=== PATIENT | female | born 1945 | race Caucasian/White ===

== ENCOUNTER 2016-11-04 18:18 | Inpatient (IN) | payer MEDICARE, OTHER ==
[~2016-11-04] VITALS: Ht 162.6 cm; Wt 60.4 kg
[2016-11-04] MEDS ORDERED: COU75 PO (19:57)
[2016-11-04] MEDS ORDERED: GABA300C16 PO (19:57)
[2016-11-04] MEDS ORDERED: DILT120C77 PO (19:57)
[2016-11-04] MEDS ORDERED: ACET325C PO (19:57)
[2016-11-04] MEDS ORDERED: ATOR10TA65 PO (19:57)
[2016-11-04] MEDS ORDERED: POLY17PO6 PO (19:57)
[2016-11-04] MEDS ORDERED: TRAV4OP25 BOTH EYES (19:57)
[2016-11-04] MEDS ORDERED: LANS30CA PO (19:57)
[2016-11-04] MEDS ORDERED: DOCU-144 PO (19:57)
[2016-11-04] MEDS ORDERED: ALPR0.257 PO (19:57)
[2016-11-04] MEDS ORDERED: FURO40TA4 PO (19:57)
[2016-11-04] MEDS ORDERED: DIGO125T6 PO (19:57)
[2016-11-04] MEDS ORDERED: ZOLP5TAB PO (19:57)
[2016-11-04 20:00] VITALS: BP 135/61; RESP 17; Ht 162.6 cm; Wt 60.4 kg
[2016-11-04] MEDS ORDERED: POLYETHYLENE GLYCOL 17 GM PACKET PO PRN (20:30)
[2016-11-04] MEDS ORDERED: NON-FORMULARY/PATIENT OWN MED (Alprazolam 0.25 MG) PO PRN (20:30)
[2016-11-04] MEDS ORDERED: ZOLPIDEM 5 MG TAB PO PRN (20:30)
[2016-11-04] MEDS ORDERED: TRAVOPROST 0.004% 2.5 ML OPH BOTH EYES SCH (21:00)
[2016-11-04] MEDS ORDERED: ACETAMINOPHEN 650 MG PO SCH (21:00)
[2016-11-04] MEDS: DIGOXIN 0.125 MG TAB PO SCH (21:43)
[2016-11-04] MEDS ORDERED: ACETAMINOPHEN 325 MG TAB PO PRN (22:00)
[2016-11-04] MEDS ORDERED: ALPRAZOLAM 0.25 MG TAB PO PRN ×2 (22:00)
[2016-11-04] MEDS: ATORVASTATIN 10 MG TAB PO SCH (22:10)
[2016-11-04] MEDS: GABAPENTIN 300 MG CAP PO SCH (22:10)
[2016-11-05 01:43] LABS: ADD UMIC YES; URINE BILIRUBIN (Dip) NEGATIVE (NEGATIVE); URINE BLOOD (Dip) NEGATIVE (NEGATIVE); URINE COLOR LT. YELLOW (YELLOW); URINE GLUCOSE (Dip) NEGATIVE (NEGATIVE); URINE KETONES (Dip) NEGATIVE (NEGATIVE); URINE LEUKOCYTE ESTERASE (Dip) 2+ (NEGATIVE); URINE NITRITE (Dip) NEGATIVE (NEGATIVE); URINE TOTAL PROTEIN (Dip) NEGATIVE (NEGATIVE); URINE UROBILINOGEN (Dip) 0.2 E.U./dL (0.1-1.0)
[2016-11-05 02:45] LABS: BACTERIA,URINE MANY; SQUAMOUS EPITHELIAL CELL,UR FEW; URINE RBCS 0-2 /HPF (0)
[2016-11-05] MEDS ORDERED: BISACODYL 10 MG SUPP PR PRN (03:00)
[2016-11-05 05:46] VITALS: BP 139/68; PULSE 82
[2016-11-05] MEDS: FUROSEMIDE 40 MG TAB PO SCH (05:46)
[2016-11-05 07:30] VITALS: BP 132/79; RESP 18
[2016-11-05 07:52] LABS: HEMATOCRIT 36.9 % (37.0-47.0); HEMOGLOBIN 11.5 g/dl (12.0-16.0); MEAN CORPUSCULAR HEMOGLOBIN 25.1 pg (29.0-33.0); MEAN CORPUSCULAR HGB CONC 31.1 g/dl (32.0-37.0); MEAN CORPUSCULAR VOLUME 80.6 fl (82.0-101.0); MEAN PLATELET VOLUME 9.9 fl (7.4-10.4); PLATELET COUNT 621 10^3/UL (140-440); RED BLOOD COUNT 4.57 10^6/ul (4.20-5.40); RED CELL DISTRIBUTION WIDTH 22.5 % (11.5-14.5); UNCORRECTED WBC 14.8 10^3/ul (4.8-10.8); WHITE BLOOD COUNT 14.8 10^3/ul (4.8-10.8)
[2016-11-05 08:00] LABS: CONDITION 1; LH ANALYZER COMMENTS 1; SUSPECT 1
[2016-11-05 08:05] LABS: ALBUMIN 3.6 g/dl (3.3-4.9)
[2016-11-05 08:06] LABS: POTASSIUM 3.9 mmol/L (3.5-5.1)
[2016-11-05 08:08] LABS: ALBUMIN/GLOBULIN RATIO 1.02; BILIRUBIN,INDIRECT 0.3 mg/dl (0-1.1); BILIRUBIN,TOTAL 0.3 mg/dl (0.2-1.3); CALCIUM 9.7 mg/dl (8.4-10.2); CREATININE 1.02 mg/dl (0.44-1.00); TOTAL PROTEIN 7.1 g/dl (6.1-8.1)
[2016-11-05] MEDS: DILTIAZEM (CD) 120 MG CAP PO SCH (08:33)
[2016-11-05] MEDS: GABAPENTIN 300 MG CAP PO SCH ×3 (08:33→20:29)
[2016-11-05] MEDS: LANSOPRAZOLE 30 MG CAP PO SCH (08:33)
[2016-11-05] MEDS ORDERED: WARFARIN 7.5 MG TAB PO SCH (09:00)
[2016-11-05 10:12] LABS: EOSINOPHILS # 0.1 10^3/ul (0.0-0.5); LYMPHOCYTES # 5.6 10^3/ul (0.8-2.9); MONOCYTE # 1.8 10^3/ul (0.3-0.9); NEUTROPHIL # 7.1 10^3/ul (1.6-7.5); PLATELET ESTIMATE PLT APPEAR INCREASED
[2016-11-05] MEDS: HYDROCODONE/APAP (5/325) TAB PO PRN ×2 (10:19→22:13)
[2016-11-05 11:13] LABS: INR 2.32; PROTIME 25.7 Sec (12.2-14.2)
--- NOTE | 2016-11-05 11:27 | HP ---
DATE OF ADMISSION: 11/04/2016 CHIEF COMPLAINT: Acute stroke. HISTORY OF PRESENT ILLNESS: This is a 71-year-old female with a past medical history of chronic atr ial fibrillation on warfarin, history of hypertension, history of glaucoma, history of chronic lymph osarcoma diagnosed at age 17 with a previous history of radiation therapy and surgery who was transf erred to [facility] for acute rehabilitation due to recent CVA. The patient was r ecently admitted to [facility] with progressive shortness of breath. At the time of admission , the patient was complaining of shortness of breath and lower extremity edema. The patient also oliver d a recent fall resulting in facial trauma. The patient upon admission to [facility] initiall y had a CT scan of the brain with evidence of old cerebrovascular accident. The patient was subsequ ently admitted for treatment. During the hospital stay, the patient had new onset of right-sided lo wer extremity weakness and MRI of the brain was then performed which showed evidence of left frontal lobe lacunar infarct. Carotid ultrasound and carotid MRA was performed which was negative for any significant stenosis. The patient further during the hospital course developed right temporal heada ches with right eye blurry vision. The patient was evaluated by rheumatology was initially placed o n steroids. A right temporal biopsy was performed which was negative for any evidence of GCA. Stero ids were subsequently discontinued and a repeat MRI of the brain showed no further findings. The fawad valdes was also evaluated by ophthalmology during the hospital course and determined to have normal i ntraarticular pressure and the patient's glaucoma meds were continued. Blurriness of the right eye remained unexplained per ophthalmology. Additionally, during the hospital course, the patient had a longstanding history of liposarcoma of the abdomen. An imaging study of the abdomen and pelvis sangeeta wed 2 separate fluid collections which may be due to the tumor and the possibility of tumor infiltra tion of the peripheral nerves of the sacrum. Patient, however, refused further evaluation at that t jhon and wanted pain control and management. The patient also wanted her lower extremity weakness im proved prior for further evaluation of the fluid collections. Currently, at the time, the patient is stable. She is complaining of right blurry vision without an y significant change. She denies any fevers, chills, nausea, vomiting. No shortness of breath. PAST MEDICAL HISTORY: As stated above, history of a chronic AFib, history of old cerebrovascular ac cident, history of hypertension, glaucoma, history of chronic liposarcoma. PAST SURGICAL HISTORY: Previous history of tumor resection. ALLERGIES: PATIENT IS ALLERGIC TO: 1. INFLUENZA VACCINE. 2. LACTULOSE. FAMILY HISTORY: No family history of kidney disease or heart disease. SOCIAL HISTORY: Does not drink, smoke or do drugs. MEDICATIONS: The patient's medications have been reviewed and reconciled. REVIEW OF SYSTEMS: A 14-point review of systems was conducted. Pertinent positives in HPI, otherwi se negative. PHYSICAL EXAMINATION: VITAL SIGNS: Blood pressure is 132/79, respiration 18, pulse 81, temperature 97.5. HEENT: Head is normocephalic. Pupils are reactive. As noted, right-sided blurry vision, chronic. NECK: Supple. HEART: Irregularly irregular. LUNGS: Show diminished breath sounds at the base. ABDOMEN: Soft, nontender to palpation. No rebound or guarding. EXTREMITIES: Negative for clubbing, cyanosis. No edema. Positive ecchymosis. DERMATOLOGIC: No rashes. MUSCULOSKELETAL: No joint effusions. NEUROLOGIC: The patient has right-sided weakness. MEDICATIONS: The patient's medications have been reviewed. LABORATORY DATA: The patient has sodium 140, potassium 2.9, chloride 100, BUN 31, creatinine 1.02, alkaline phosphatase 148. White count 14.8, hemoglobin 11.5, hematocrit 36.9, platelet count 621. ASSESSMENT AND PLAN: This is a 71-year-old female who presents with: 1. Acute left frontal lacunar infarct with right-sided weakness. Plan at this point is for patient to receive physical therapy, occupational therapy. We will continue medical management with Coumad in, statin therapy. We will consider neurologic evaluation. We will monitor closely. 2. Right blurry vision. Etiology may be secondary to acute cerebrovascular accident. The patient is status post ophthalmology evaluation at outside hospital that showed normal intraocular pressure. We will continue to monitor. Consider ophthalmology consult. 3. Nonoliguric acute kidney injury with possible chronic kidney disease. The patient's creatinine is minimally elevated at 1.02 mg/dL, improved from previous creatinine 1.30 mg/dL [facility]. At this point, continue to monitor closely. Continue to renally dose all meds, avoid nephroto xins. 4. Leukocytosis. Etiology is unclear, possibly due to recent steroid use versus infectious. We wi ll check urine culture and UA, monitor closely. 5. Chronic atrial fibrillation, currently rate controlled. Continue medical management. The patie nt is on Coumadin. We will follow up INR level. 6. History of chronic liposarcoma. Patient is status post radiation therapy resection in the past. The patient's recent MRI finding shows new fluid collections unclear if this is due to progression of disease. At this point, we will defer further evaluation per patient's request and we will rodrick tor. 7. Neuropathy. Continue Neurontin. 8. Chronic pain syndrome. Continue current pain regimen. 9. Dyslipidemia. Continue statin therapy. 10. Anxiety disorder. Continue Xanax. 11. Anemia. We will monitor hemoglobin and hematocrit levels. 12. GI and deep venous thrombosis prophylaxis. Continue proton pump inhibitor and Coumadin. Please note I spent up to 20 minutes of face to face time with this patient, discussing code status. The patient is FULL CODE. Dictated By: CRISTIANO JJ DO NR/AMADOU Conf#: [id number] DID#: [id number]
--- NOTE | 2016-11-05 11:57 | RADRPT ---
PROCEDURE: US Lower extremity Venous. CLINICAL INDICATION: Right leg pain TECHNIQUE: Multiple sonographic images of the right lower extremity deep venous system was obtaine d utilizing grayscale, color-flow, compressive sonography and doppler imaging with augmentation. Th e images were reviewed on a PACS workstation. COMPARISON: None. FINDINGS: There is normal compressibility and flow within the right common femoral, superficial femoral, poste rior tibial, peroneal and popliteal veins. RPTAT: AA IMPRESSION: No sonographic evidence for deep venous thrombosis. .Donald Das MD, MD Date Time Electronically viewed and signed by .Donald Das MD, on 11/05/2016 11:57 .S/
[2016-11-05] MEDS: DIGOXIN 0.125 MG TAB PO SCH (14:07)
--- NOTE | 2016-11-05 14:12 | CONS ---
DATE OF ADMISSION: 11/04/2016 DATE OF CONSULTATION: 11/05/2016 REHABILITATION POST ADMISSION PHYSICIAN EVALUATION REHABILITATION IMPAIRMENT CATEGORY: Left frontal lacunar infarct cerebrovascular accident with righ t-sided weakness. ACTIVE COMORBIDITIES: 1. Blunt head trauma with facial abrasion. 2. Atrial fibrillation. 3. Hypertension. 4. History of cerebrovascular accident. 5. History of lymphosarcoma. 6. History of myocardial infarction. 7. Impairments in self-care, mobility, and cognition. HISTORY OF PRESENT ILLNESS: The patient is a pleasant 71-year-old female with a history of multiple medical comorbidities who was admitted with increased shortness of breath and weakness in addition to recent fall with notable facial ecchymoses. An MRI of the brain did reveal a left frontal lobe w ith acute lacunar infarct. The patient has now been cleared to transfer to the rehabilitation unit for comprehensive interdisciplinary rehab care. FUNCTIONAL HISTORY: Prior to recent events, she was independent in self-care tasks and mobility. C urrently, the patient requires moderate assist for self-care and moderate assist for mobility tasks. I have reviewed the preadmission screen and the patient's current functional status is consistent wi th the preadmission screen. SOCIAL HISTORY: The patient lives at home and hopes to return there upon discharge. PAST MEDICAL HISTORY: 1. Atrial fibrillation. 2. Hypertension. 3. Glaucoma. 4. History of myocardial infarction. 5. History of cerebrovascular accident with good functional recovery. 6. History of lymphosarcoma. CURRENT MEDICATIONS: 1. Alprazolam 0.25 p.o. q.6 hours p.r.n. 2. Atorvastatin 10 mg p.o. at bedtime. 3. Digoxin 0.125 p.o. daily. 4. Colace 100 mg p.o. b.i.d. 5. Ambien p.r.n. 6. Diltiazem 120 p.o. daily. 7. Lasix 40 mg p.o. daily. 8. Gabapentin 300 mg p.o. t.i.d. 9. Prevacid 30 mg p.o. every morning. 10. Travoprost eye drops. 11. Coumadin dose adjusted. ALLERGIES: THE PATIENT WITH NO KNOWN DRUG ALLERGIES. PHYSICAL EXAMINATION: VITAL SIGNS: She is currently afebrile with stable vital signs. HEENT: The extraocular motions are intact. The patient with notable right-sided facial ecchymoses. Oropharynx is clear. NECK: Supple. LUNGS: Clear anteriorly. CARDIAC: S1, S2. ABDOMEN: Soft, nontender, positive bowel sounds. NEUROLOGIC: She is awake and alert and oriented x3. She will follow simple 1-step commands. She d emonstrates good strength in the left upper and lower extremity. She has antigravity strength in th e right upper extremity. She has 3+ to 4- in the right lower extremity. PLAN: The patient has been admitted for comprehensive interdisciplinary acute rehab and is anticipa noni to tolerate 3 hours of daily therapy in divided doses for at least 5/7 days a week. The treatme nt plan will include: 1. Physical therapy to focus on bed mobility, transfers, and household ambulation with the goal of having the patient reach a standby assist level. 2. Occupational therapy to focus on hygiene, grooming, dressing, bathing, and toileting activities with the goal of having the patient reach a standby assist level. 3. Speech therapy for full cognitive assessment and training in addition to dysphagia evaluation wi th the goal of having the patient return to baseline cognition and meet nutritional needs by mouth. 4. Rehabilitation nursing for carryover of therapeutic interventions with the goal of continent of bowel and bladder, and the goal of patient and family education with regards to the aforementioned i ssues. REHABILITATION BARRIER: Weakness. INTERVENTION FOR BARRIER: Interdisciplinary rehabilitation. ESTIMATED LENGTH OF STAY: 14 days. DISPOSITION GOAL: Home. I acknowledge that I performed a full physical examination on this patient within 24 hours of admiss ion to the rehabilitation unit and believe the patient is a good candidate for comprehensive interdi sciplinary rehab care and is anticipated to make reasonable goals in a reasonable period of time as outlined above. Dictated By: JEIMY VIVAS/AMADOU Conf#: [id number] DID#: [id number]
[2016-11-05] MEDS ORDERED: CEPASTAT LOZENGE MT PRN (16:00)
[2016-11-05] MEDS: WARFARIN 5 MG TAB PO SCH (17:22)
[2016-11-05] MEDS: GUAIFENESIN/DM 5ML CUP PO PRN ×2 (18:09→22:13)
[2016-11-05] MEDS: LATANOPROST 0.005% 2.5 ML OPH BOTH EYES SCH (20:30)
[2016-11-05] MEDS: ATORVASTATIN 10 MG TAB PO SCH (20:30)
[2016-11-05 21:09] VITALS: BP 127/71; RESP 18
[2016-11-06] MEDS: GUAIFENESIN/DM 5ML CUP PO PRN (03:19)
[2016-11-06 05:58] VITALS: BP 121/63; PULSE 86
[2016-11-06] MEDS: FUROSEMIDE 40 MG TAB PO SCH (05:58)
[2016-11-06 07:43] LABS: BASOPHILS % 0.2 % (0.0-2.0); EOSINOPHILS # 0.4 10^3/ul (0.0-0.5); EOSINOPHILS % 2.8 % (0.0-7.0); HEMATOCRIT 34.5 % (37.0-47.0); HEMOGLOBIN 10.5 g/dl (12.0-16.0); INR 3.1; MEAN CORPUSCULAR HEMOGLOBIN 24.5 pg (29.0-33.0); MEAN CORPUSCULAR HGB CONC 30.3 g/dl (32.0-37.0); MEAN CORPUSCULAR VOLUME 80.6 fl (82.0-101.0); MEAN PLATELET VOLUME 9.7 fl (7.4-10.4); MONOCYTE # 1.9 10^3/ul (0.3-0.9); MONOCYTES % 13.4 % (0.0-11.0); NEUTROPHILS % 62.6 % (39.0-77.0); PLATELET COUNT 560 10^3/UL (140-440); PROTIME 32.4 Sec (12.2-14.2); PT RATIO 2.5; RED BLOOD COUNT 4.28 10^6/ul (4.20-5.40); RED CELL DISTRIBUTION WIDTH 22.8 % (11.5-14.5); UNCORRECTED WBC 14.4 10^3/ul (4.8-10.8); WHITE BLOOD COUNT 14.4 10^3/ul (4.8-10.8)
[2016-11-06 07:46] LABS: CONDITION 1; LH ANALYZER COMMENTS 1; SUSPECT 1
[2016-11-06 07:53] LABS: POTASSIUM 3.4 mmol/L (3.5-5.1)
[2016-11-06 07:56] LABS: CREATININE 0.86 mg/dl (0.44-1.00)
[2016-11-06 07:57] LABS: CALCIUM 9.5 mg/dl (8.4-10.2); MAGNESIUM 2.3 mg/dl (1.7-2.5); PHOSPHORUS 2.9 mg/dl (2.5-4.9)
[2016-11-06] MEDS: LANSOPRAZOLE 30 MG CAP PO SCH (08:03)
[2016-11-06 08:35] VITALS: BP 131/73; RESP 18
[2016-11-06] MEDS: DILTIAZEM (CD) 120 MG CAP PO SCH (09:14)
[2016-11-06] MEDS: GABAPENTIN 300 MG CAP PO SCH ×3 (09:14→20:32)
[2016-11-06] MEDS ORDERED: POTASSIUM CHLORIDE (SR) 20 MEQ TAB PO STA (09:33)
--- NOTE | 2016-11-06 11:56 | CONS ---
Date/Time of Note Date/Time of Note DATE: 11/06/16 TIME: 11:55 Consult Date/Type/Reason Admit Date/Time Nov 04, 2016 at 18:18 Initial Consult Date Subjective Patient without new complaints Objective pulm- cta HEENT- echymosis improving min assist 50 feet Vital Signs Date Time Temp Pulse Resp B/P Pulse Ox O2 Delivery O2 Flow Rate FiO2 11/06/16 08:35 98.2 88 18 131/73 96 Intake and Output 11/05/16 11/05/16 11/06/16 15:00 23:00 07:00 Intake Total 510 ml 550 ml Balance 510 ml 550 ml Results/Medications Result Diagram: 11/06/16 0555 11/06/16 0555 Results 24 hrs Laboratory Tests Test 11/06/16 05:55 Anion Gap 14 Basophils # 0.0 Basophils % 0.2 Blood Morphology Comment Blood Urea Nitrogen 32 H Calcium Level 9.5 Carbon Dioxide Level 31 Chloride Level 96 L Creatinine 0.86 Eosinophils # 0.4 Eosinophils % 2.8 Glucose Level 86 Hematocrit 34.5 L Hemoglobin 10.5 L INR International Normalized Ratio 3.10 Lymphocytes # 3.0 H Lymphocytes % 21.0 Magnesium Level 2.3 Mean Corpuscular Hemoglobin 24.5 L Mean Corpuscular Hemoglobin Concent 30.3 L Mean Corpuscular Volume 80.6 L Mean Platelet Volume 9.7 Monocytes # 1.9 H Monocytes % 13.4 H Neutrophils # 9.0 H Neutrophils % 62.6 Nucleated Red Blood Cells # 0.0 Nucleated Red Blood Cells % 0.0 Phosphorus Level 2.9 Platelet Count 560 H Potassium Level 3.4 L Prothrombin Time 32.4 #H Prothrombin Time Ratio 2.5 Red Blood Count 4.28 Red Cell Distribution Width 22.8 H Sodium Level 138 White Blood Count 14.4 H Medications Current Medications Atorvastatin Calcium (Lipitor) 10 mg QHS PO Last administered on 11/05/16 20:30 ; Admin Dose 10 MG; Start 11/04/16 at 21:00 Digoxin (Digoxin) 0.125 mg DAILY@13 PO Last administered on 11/05/16 14:07; Admin Dose 0.125 MG; Start 11/04/16 at 20:30 Diltiazem HCl (Cardizem Cd) 120 mg DAILY PO Last administered on 11/06/16 09:14 ; Admin Dose 120 MG; Start 11/05/16 at 09:00 Docusate Sodium (Colace) 100 mg BID PRN PO CONSTIPATION; Start 11/04/16 at 20:30 Furosemide (Lasix) 40 mg DAILY@06 PO Last administered on 11/06/16 05:58; Admin Dose 40 MG; Start 11/05/16 at 06:00 Gabapentin (Neurontin) 300 mg TID PO Last administered on 11/06/16 09:14; Admin Dose 300 MG; Start 11/04/16 at 21:00 Polyethylene Glycol (Miralax) 17 gm DAILY PRN PO CONSTIPATION; Start 11/04/16 at 20:30 Zolpidem Tartrate (Ambien) 5 mg QHS PRN PO SLEEP; Start 11/04/16 at 20:30 Acetaminophen (Tylenol Tab) 650 mg Q4H PRN PO PAIN/FEVER; Start 11/04/16 at 22: 00 Alprazolam (Xanax) 0.25 mg Q6H PRN PO ANXIETY Last administered on 11/06/16 03: 22; Admin Dose 0.25 MG; Start 11/04/16 at 22:00 Latanoprost (Xalatan) 1 drop HS BOTH EYES Last administered on 11/05/16 20:30; Admin Dose 1 DROP; Start 11/05/16 at 21:00 Warfarin Sodium (Coumadin) 5 mg DAILY@17 PO Last administered on 11/05/16 17:22 ; Admin Dose 5 MG; Start 11/05/16 at 17:00; Status Future Hold Bisacodyl (Dulcolax Supp) 10 mg DAILY PRN [place] CONSTIPATION; Start 11/05/16 at 03: 00 Acetaminophen/ Hydrocodone Bitart ([place] (5/325)) 1 tab Q6H PRN PO PAIN Last administered on 11/05/16 22:13; Admin Dose 1 TAB; Start 11/05/16 at 10:30 Guaifenesin/ Codeine Phosphate (Robitussin Ac Liquid Cup) 5 ml Q4H PRN PO cough ; Start 11/06/16 at 11:00 Assessment/Plan Additional Assessment/Plan Rehab- Left frontal lacunar infarct cerebrovascular accident with right-sided weakness. Continue interdisciplinary rehab program Blunt head trauma with facial abrasion. Atrial fibrillation. Hypertension. History of cerebrovascular accident. History of lymphosarcoma. History of myocardial infarction. JEIMY GARRETT MD Nov 06, 2016 11:56
--- NOTE | 2016-11-06 12:51 | PN ---
DATE: 11/06/2016 SUBJECTIVE: The patient continues to have pain in right lower extremity, continues to have blurred vision, right eye, no change. No other events noted. The patient is also complaining of cough whic h is new since yesterday, but no shortness of breath, no chest pain, no hemoptysis. OBJECTIVE: VITAL SIGNS: Blood pressure 131/73, respiration 18, pulse 88, temperature 98.2. HEENT: Head is normocephalic. NECK: Supple. HEART: Regular rate. LUNGS: Show diminished breath sounds at base. ABDOMEN: Soft, nontender to palpation. No rebound or guarding. EXTREMITIES: Negative for clubbing, cyanosis, or edema. DERMATOLOGIC: No rashes. MUSCULOSKELETAL: No joint effusions. NEUROLOGIC: No change in exam. MEDICATIONS: The patient's medications have been reviewed. LABORATORY DATA: Showed sodium 138, potassium 3.4, chloride 96, BUN 13, creatinine 0.86. White cou nt 14.4, hemoglobin 10.5, hematocrit 34.5, platelet count is 560. IMAGING: The patient's Doppler lower extremity ultrasound negative for DVT. ASSESSMENT AND PLAN: 1. Acute left frontal lacunar infarct with right-sided weakness. The patient is currently stable. Plan is to continue physical therapy and occupational therapy. Continue Coumadin. Continue statin therapy. Consider neurology evaluation. 2. Blurry vision. Etiology may be secondary to acute cerebrovascular accident. The patient is sta tus post ophthalmology evaluation at outside hospital that showed normal intraocular pressure. Cont inue to monitor. Consider outpatient ophthalmology followup. 3. Nonoliguric acute kidney injury on top of possible chronic kidney disease. Etiology is hemodyna mics. Renal function is improving. Continue supportive care, renally dose medications, avoid nephr otoxins. 4. Leukocytosis, etiology is unclear if this is from recent steroid use versus systemic inflammator y response syndrome. We will place an ID consult with Dr. Fulton for evaluation. 5. Chronic atrial fibrillation, currently rate controlled. Continue medical management. Continue Coumadin and adjust medications. INR is currently supratherapeutic. 6. History of chronic liposarcoma. The patient is status post radiation therapy and resection in t he past. The patient's recent MRI findings showed no new fluid collections. Unclear if this is due to progression of disease. We will continue to monitor. Defer further evaluation at this time per patient's request. 7. Neuropathy. Continue Neurontin. 8. Chronic pain syndrome. Continue current pain regimen. 9. Dyslipidemia. Continue statin therapy. 10. Anxiety disorder. Continue Xanax. 11. Anemia. Continue to monitor hemoglobin and hematocrit levels. 12. Gastrointestinal and deep venous thrombosis prophylaxis. Continue proton pump inhibitor, Couma din. 13. Cough, questionable possible upper respiratory infection. Will check a chest x-ray. Continue guaifenesin. 14. Hypokalemia. We will replete potassium chloride. Dictated By: CRISTIANO ALVAREZ/AMADOU Conf#: [id number] DID#: [id number]
[2016-11-06] MEDS: DIGOXIN 0.125 MG TAB PO SCH (13:27)
[2016-11-06] MEDS: GUAIFENESIN/CODEINE 5ML CUP PO PRN ×2 (13:27→20:32)
--- NOTE | 2016-11-06 14:01 | RADRPT ---
PROCEDURE: XR Chest. CLINICAL INDICATION: cough TECHNIQUE: Single frontal chest x-ray. COMPARISON: None. FINDINGS: The lungs are clear of acute infiltrates, edema, effusions, or masses. Linear atelectasis is seen at the lung bases.. There is borderline cardiomegaly with calcific atherosclerosis of the aorta.. The osseous structures are intact. IMPRESSION: No acute cardiopulmonary disease. Minimal bibasilar atelectasis. Borderline cardiomegaly with calcified aorta. RPTAT: RR .Arcadio Arce MD, MD Date Time Electronically viewed and signed by .Arcadio Arce MD, MD on 11/06/2016 14:01 .L/
[2016-11-06 20:00] VITALS: BP 157/76; RESP 19
[2016-11-06] MEDS: ATORVASTATIN 10 MG TAB PO SCH (20:32)
[2016-11-06] MEDS: LATANOPROST 0.005% 2.5 ML OPH BOTH EYES SCH (20:38)
[2016-11-07] MEDS: GUAIFENESIN/CODEINE 5ML CUP PO PRN (03:15)
[2016-11-07 08:08] VITALS: BP 157/78; RESP 18
[2016-11-07] MEDS: LANSOPRAZOLE 30 MG CAP PO SCH (08:10)
[2016-11-07] MEDS: FUROSEMIDE 40 MG TAB PO SCH (08:10)
[2016-11-07] MEDS: DILTIAZEM (CD) 120 MG CAP PO SCH (08:56)
[2016-11-07] MEDS: GABAPENTIN 300 MG CAP PO SCH ×3 (08:56→20:35)
[2016-11-07] MEDS: BENZONATATE 100 MG CAP PO SCH ×3 (09:00→20:35)
--- NOTE | 2016-11-07 11:11 | CONS ---
Date/Time of Note Date/Time of Note DATE: 11/07/16 TIME: 11:09 Consult Date/Type/Reason Admit Date/Time Nov 04, 2016 at 18:18 Subjective Patient complains about persistent cough Objective HEENT- laceration site heeling well, facial echymosis improving min assist ambulation 50 feet Vital Signs Date Time Temp Pulse Resp B/P Pulse Ox O2 Delivery O2 Flow Rate FiO2 11/07/16 08:08 99.5 94 18 157/78 92 Intake and Output 11/06/16 11/06/16 11/07/16 15:00 23:00 07:00 Intake Total 480 ml 240 ml 500 ml Output Total 200 ml 200 ml Balance 280 ml 40 ml 500 ml Results/Medications Result Diagram: 11/06/16 0555 11/06/16 0555 Medications Current Medications Atorvastatin Calcium (Lipitor) 10 mg QHS PO Last administered on 11/06/16 20:32 ; Admin Dose 10 MG; Start 11/04/16 at 21:00 Digoxin (Digoxin) 0.125 mg DAILY@13 PO Last administered on 11/06/16 13:27; Admin Dose 0.125 MG; Start 11/04/16 at 20:30 Diltiazem HCl (Cardizem Cd) 120 mg DAILY PO Last administered on 11/07/16 08:56 ; Admin Dose 120 MG; Start 11/05/16 at 09:00 Docusate Sodium (Colace) 100 mg BID PRN PO CONSTIPATION; Start 11/04/16 at 20:30 Furosemide (Lasix) 40 mg DAILY@06 PO Last administered on 11/07/16 08:10; Admin Dose 40 MG; Start 11/05/16 at 06:00 Gabapentin (Neurontin) 300 mg TID PO Last administered on 11/07/16 08:56; Admin Dose 300 MG; Start 11/04/16 at 21:00 Polyethylene Glycol (Miralax) 17 gm DAILY PRN PO CONSTIPATION; Start 11/04/16 at 20:30 Zolpidem Tartrate (Ambien) 5 mg QHS PRN PO SLEEP; Start 11/04/16 at 20:30 Acetaminophen (Tylenol Tab) 650 mg Q4H PRN PO PAIN/FEVER; Start 11/04/16 at 22: 00 Alprazolam (Xanax) 0.25 mg Q6H PRN PO ANXIETY Last administered on 11/06/16 03: 22; Admin Dose 0.25 MG; Start 11/04/16 at 22:00 Latanoprost (Xalatan) 1 drop HS BOTH EYES Last administered on 11/06/16 20:38; Admin Dose 1 DROP; Start 11/05/16 at 21:00 Warfarin Sodium (Coumadin) 5 mg DAILY@17 PO Last administered on 11/05/16 17:22 ; Admin Dose 5 MG; Start 11/05/16 at 17:00; Status Future Hold Bisacodyl (Dulcolax Supp) 10 mg DAILY PRN [place] CONSTIPATION; Start 11/05/16 at 03: 00 Acetaminophen/ Hydrocodone Bitart ([place] (5/325)) 1 tab Q6H PRN PO PAIN Last administered on 11/05/16 22:13; Admin Dose 1 TAB; Start 11/05/16 at 10:30 Guaifenesin/ Codeine Phosphate (Robitussin Ac Liquid Cup) 5 ml Q4H PRN PO cough Last administered on 11/07/16 03:15; Admin Dose 5 ML; Start 11/06/16 at 11: 00 Benzonatate (Tessalon) 200 mg TID PO ; Start 11/07/16 at 09:00 Assessment/Plan Additional Assessment/Plan Rehab- Left frontal lacunar infarct cerebrovascular accident with right-sided weakness. Continue rehab therapies Blunt head trauma with facial abrasion- echymosis improving Atrial fibrillation. Hypertension. History of cerebrovascular accident. History of lymphosarcoma. History of myocardial infarction. JEIMY GARRETT MD Nov 07, 2016 11:11
--- NOTE | 2016-11-07 11:38 | PN ---
DATE: 11/07/2016 SUBJECTIVE: The patient continues to complain of cough not improving with Robitussin. The patient had a chest x-ray yesterday which showed no acute pathology, minimal atelectasis. No fevers noted. No other acute events noted. OBJECTIVE: VITAL SIGNS: Blood pressure 157/76, respirations 19, pulse 94, temperature 98.7. HEENT: Head normocephalic. NECK: Supple. HEART: Regular rate. LUNGS: Show diminished breath sounds at bases. ABDOMEN: Soft, nontender to palpation. No rebound or guarding. EXTREMITIES: Negative for clubbing, cyanosis. No edema. DERMATOLOGIC: No rashes. MUSCULOSKELETAL: No joint effusions. NEUROLOGIC: No change in exam. MEDICATIONS: Reviewed. LABORATORY DATA: Currently pending. IMAGING: Chest x-ray as stated showed minimal bibasilar atelectasis. No acute cardiopulmonary dise ase. ASSESSMENT AND PLAN: 1. Acute left frontal lacunar infarct with right-sided weakness. The patient is currently stable. Continue physical therapy and occupational therapy. Continue medical management. 2. Right blurry vision. Etiology likely from acute cerebrovascular accident. The patient is statu s post ophthalmology evaluation at outside hospital that showed no acute findings. We will continue to monitor. Follow up outpatient with ophthalmology. 3. Nonoliguric acute kidney injury. Etiology appeared to be hemodynamics. Renal function has impr aleks. Continue supportive care, renally dose meds, avoid nephrotoxins. 4. Leukocytosis, etiology unclear, possibly from steroids versus systemic inflammatory response syn drome. ID consult was placed with Dr. Fulton, waiting for evaluation. 5. Cough, possible upper respiratory infection. The patient's chest x-ray showed no acute findings . We will continue supportive care with Tessalon Perles and Robitussin with Codeine. May consider starting the patient on azithromycin. We will monitor closely. 6. Chronic atrial fibrillation, currently rate controlled. Continue medical management. Continue diltiazem. Continue Coumadin, adjust INR as needed. 7. History of chronic liposarcoma. The patient is status post radiation therapy and resection. We will continue to monitor the patient. We will defer to the patient's primary care physician for fu rther evaluation and workup. 8. Neuropathy. Continue Neurontin. 9. Chronic pain syndrome. We will continue current pain regimen. 8. Dyslipidemia. We will continue statin therapy. 9. Anxiety disorder. Continue Xanax. 10. Anemia. Continue to monitor hemoglobin and hematocrit levels. 11. Hypokalemia, status post potassium chloride. 12. Gastrointestinal and deep venous thrombosis prophylaxis. Continue proton pump inhibitor and Co umadin. Dictated By: CRISTIANO ALVAREZ/AMADOU Conf#: [id number] DID#: [id number]
[2016-11-07] MEDS: DIGOXIN 0.125 MG TAB PO SCH (12:51)
[2016-11-07 14:17] LABS: HEMATOCRIT 40.6 % (37.0-47.0); HEMOGLOBIN 12.7 g/dl (12.0-16.0); MEAN CORPUSCULAR HEMOGLOBIN 24.8 pg (29.0-33.0); MEAN CORPUSCULAR HGB CONC 31.2 g/dl (32.0-37.0); MEAN CORPUSCULAR VOLUME 79.6 fl (82.0-101.0); MEAN PLATELET VOLUME 9.7 fl (7.4-10.4); PLATELET COUNT 431 10^3/UL (140-440); RED BLOOD COUNT 5.11 10^6/ul (4.20-5.40); UNCORRECTED WBC 16.7 10^3/ul (4.8-10.8); WHITE BLOOD COUNT 16.7 10^3/ul (4.8-10.8)
[2016-11-07 14:20] LABS: CONDITION 1; LH ANALYZER COMMENTS 1
[2016-11-07 14:26] LABS: INR 2.05; PROTIME 23.3 Sec (12.2-14.2); PT RATIO 1.8
[2016-11-07 14:40] LABS: BASOPHIL # 0.2 10^3/ul (0.0-0.1); EOSINOPHILS # 0.3 10^3/ul (0.0-0.5); LYMPHOCYTES # 3.7 10^3/ul (0.8-2.9); MONOCYTE # 1.2 10^3/ul (0.3-0.9); NEUTROPHIL # 11.2 10^3/ul (1.6-7.5)
[2016-11-07 14:59] LABS: POTASSIUM 3.6 mmol/L (3.5-5.1)
[2016-11-07 15:01] LABS: CREATININE 1.03 mg/dl (0.44-1.00)
[2016-11-07 15:02] LABS: CALCIUM 9.1 mg/dl (8.4-10.2); PHOSPHORUS 2.3 mg/dl (2.5-4.9)
[2016-11-07] MEDS: WARFARIN 5 MG TAB PO SCH (17:25)
--- NOTE | 2016-11-07 17:34 | CONS ---
DATE OF ADMISSION: 11/04/2016 DATE OF CONSULTATION: 11/07/2016 TYPE OF CONSULTATION: Psychological. REFERRING PHYSICIAN: Bhupinder Conway MD CONSULTING PSYCHOLOGIST: Martine Ugalde, PhD REASON FOR CONSULTATION: This consultation was requested by Dr. Little Conway in order to evaluate the cognitive and emotional functioning of this patient related to her present medical condition. HISTORY OF PRESENT ILLNESS: The patient is a 71-year-old female. She has a history of chronic atri al fibrillation. The patient is on warfarin. The patient also has hypertension and glaucoma. The patient has had a previous CVA and then just recently had a new one. The patient reports that her f irst CVA was probably 2 to 2-1/2 years ago. The patient is frustrated by her present medical condit ion. The patient is feeling that she is having some difficulty. The patient is scared that she sae l have another stroke. The patient reports that she was very tired and was coughing all night long last night. The patient is motivated to get better and does want to return to her previous level of functioning. FAMILY/SOCIAL HISTORY: The patient reports that she lives in an apartment with her 47-year-old mikayla barneser. The patient does want to return there after discharge. MEDICATIONS: The patient is currently on: 1. Xanax 0.25 q.6h. p.r.n. 2. The patient is also taking Neurontin 300 mg t.i.d. The patient reports that she has been taking this medication since she has been 18 years old for medical condition. 3. The patient does take Ambien 5 mg at bedtime p.r.n. for sleep. SUBSTANCE USE: The patient reports that she does not smoke. The patient reports that she does not use alcohol or other drugs. MENTAL STATUS EXAMINATION: APPEARANCE: The patient was seen in bed. She is of average height and weight. The patient is righ t-handed. BEHAVIOR: The patient was cooperative during the consultation. The patient did attempt to answer a ll questions presented to her by the interviewer. MOOD AND AFFECT: The patient's mood appears to be slightly depressed. Affect does appear to be sli ghtly anxious. The patient does state that she is frightened about her present medical condition. PERCEPTION: The patient reports no hallucinations or delusions. The patient was alert to person, p lace, situation and time. MEMORY AND COGNITION: The patient's memory and cognition appeared to be somewhat impaired at the pr esent time. It is likely that the recent stroke affected her cognitions. The patient was initially unable to say the name of the hospital. She thought it was [facility], but then came up with [facility] but did not come up with the rest of the name. The patient could not spell "world" backward s. The patient could not do serial 7 subtractions from 100. The patient could say who the Presiden t of the [facility] is but she could not say who the governor of the state is or who the mayor of the [facility] is. Overall, the patient appears to be having some difficulties at the present time and t his is likely related to her stroke. INTELLIGENCE: Intelligence appears to fall in the average range when she is functioning well. INSIGHT: Fair. JUDGMENT: Fair. THOUGHT CONTENT: The patient is concerned about her present medical condition. The patient is fear ful that she will have another stroke. The patient is motivated to get better and does want to retu rn to her previous level of functioning. DISCUSSION: The patient can likely benefit from some cognitive/behavioral psychotherapy while she i s on the unit. The psychotherapy would focus on her underlying medical problems and her fears that she is going to continue to have more medical problems. DIAGNOSTIC IMPRESSION: 1. 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 2. F01.50, vascular dementia without behavioral disturbance. Thank you very much, Dr. Little Conway, for referring this individual. Please do not hesitate to ca ll if you have additional questions. Dictated By: MARTINE UGALDE PHD TOM/AMADOU Conf#: [id number] DID#: [id number]
--- NOTE | 2016-11-07 18:07 | PN ---
DATE: 11/07/2016 SUBJECTIVE: No acute changes. The patient is awake, currently trying to have a bowel movement and complaining of being constipated. She is in no distress, no fevers. Temperature max 99.5. White b lood cell count today 16.7 with platelets 431. BUN 21, creatinine 1.03. Per report, the patient oliver s frequent urination. MICROBIOLOGY: Urine culture on admission grew E. coli resistant to Ancef and ampicillin. DIAGNOSTICS: Chest x-ray from yesterday revealed no acute cardiopulmonary disease. ANTIMICROBIALS: The patient is not on any antibiotics. ALLERGIES: NONE. PHYSICAL EXAMINATION: GENERAL: This is a fragile, elderly woman who is alert, in no distress. HEENT: Head atraumatic, normocephalic. Sclerae anicteric. Buccal mucosa pink. NECK: Supple, trachea midline. CHEST: Rise symmetrical. Breath sounds diminished to bases. HEART: S1, S2. ABDOMEN: Soft, bowel sounds present. EXTREMITIES: No cyanosis. ASSESSMENT: 1. Urinary tract infection with urine culture growing Escherichia coli. 2. Constipation. 3. Acute cerebrovascular accident with right-sided weakness. 4. Chronic atrial fibrillation. 5. Anxiety disorder. PLAN: We are going to start patient on oral Levaquin. Monitor postvoid residuals. Consider stool softeners, laxatives and enema p.r.n. Continue physical therapy. Panculture p.r.n. Dictated By: GARRICK PARKINSON MACHINE BINDING FOLDER for DAVID GERONIMO/NTS Conf#: [id number] DID#: [id number]
[2016-11-07] MEDS: DOCUSATE SODIUM 100 MG CAP PO PRN (18:15)
[2016-11-07] MEDS ORDERED: LEVOFLOXACIN 500 MG TAB PO ONE (18:20)
[2016-11-07] MEDS: ATORVASTATIN 10 MG TAB PO SCH (20:35)
[2016-11-07] MEDS: LATANOPROST 0.005% 2.5 ML OPH BOTH EYES SCH (20:35)
[2016-11-07 21:39] VITALS: BP 140/69; RESP 18
[2016-11-07] MEDS ORDERED: CEFTRIAXONE 1 GM/50 ML (PMX) 50 ML IVPB SCH (23:30)
--- NOTE | 2016-11-08 00:08 | CONS ---
DATE OF ADMISSION: 11/04/2016 DATE OF CONSULTATION: TYPE OF CONSULTATION: Infectious Disease REFERRING PHYSICIAN: Dr. Gavin Coulter DO HISTORY OF PRESENT ILLNESS: The patient is a 71-year-old white female who was admitted on 11/04/2015 with a chief complaint of a recent fall and facial contusions and developed new onset of right lower extremity weakness. Initial CT scan of the head revealed an old cerebrovascular acciden t. MRI revealed a left frontal lobe infarction. The patient developed blurriness of her right eye and it was noted that she had a right acute frontal lobe infarction. Potassium was 2.9. Creatinine 1.02. Chest x-ray revealed minimal bibasilar atelectasis and borderline cardiomegaly. The patient had a MRSA screen which was negative. A white count initially was 16,700 with 48 polys and 38 lymph s and 12 monocytes. Urinalysis had specific gravity of 10/10, +1 leukocyte esterase, negative nitri jodie and many bacteria. The patient's urine grew greater than 10 to the 5th E. coli which was resist ant to ampicillin and cefazolin, but sensitive to third generation cephalosporins, fluoroquinolones and sulfa trimethoprim. The patient was begun treatment with Levaquin 500 mg IV daily. The patient from 14,600 on admission to 16,700 today. INITIAL IMPRESSION 1. Urinary tract infection. 2. Rule out viral illness. 3. Acute frontal lobe infarct, 4. Atrial fibrillation. 5. Long-term anticoagulation, warfarin. 6. Hypertension. 7. Chronic lymphosarcoma from age 17, status post radiation therapy and surgery. 8. Peripheral neuropathy. RECOMMENDATIONS: Obtain an ultrasound. Change to ceftriaxone for a total of 10 days treatment and d iscontinue Levaquin. Thank you, Dr. Coulter, for referring this interesting patient. Dictated By: Robin XIAO/AMADOU Conf#: [id number] DID#: [id number]
[2016-11-08] MEDS: DOCUSATE SODIUM 100 MG CAP PO PRN (01:35)
[2016-11-08] MEDS ORDERED: LEVOFLOXACIN 250 MG TAB NGT SCH (06:00)
[2016-11-08] MEDS: LANSOPRAZOLE 30 MG CAP PO SCH (06:29)
[2016-11-08] MEDS: FUROSEMIDE 40 MG TAB PO SCH (06:30)
[2016-11-08 07:04] LABS: INR 1.7; PROTIME 20.1 Sec (12.2-14.2); PT RATIO 1.6
[2016-11-08 07:07] LABS: BASOPHIL # 0.1 10^3/ul (0.0-0.1); BASOPHILS % 0.6 % (0.0-2.0); EOSINOPHILS # 0.1 10^3/ul (0.0-0.5); EOSINOPHILS % 0.4 % (0.0-7.0); HEMATOCRIT 35.7 % (37.0-47.0); HEMOGLOBIN 11.3 g/dl (12.0-16.0); LYMPHOCYTES # 2.4 10^3/ul (0.8-2.9); LYMPHOCYTES % 15.7 % (15.0-51.0); MEAN CORPUSCULAR HEMOGLOBIN 25.2 pg (29.0-33.0); MEAN CORPUSCULAR HGB CONC 31.7 g/dl (32.0-37.0); MEAN CORPUSCULAR VOLUME 79.4 fl (82.0-101.0); MEAN PLATELET VOLUME 9.4 fl (7.4-10.4); MONOCYTE # 2.2 10^3/ul (0.3-0.9); MONOCYTES % 14.5 % (0.0-11.0); NEUTROPHIL # 10.4 10^3/ul (1.6-7.5); NEUTROPHILS % 68.8 % (39.0-77.0); PLATELET COUNT 517 10^3/UL (140-440); RED CELL DISTRIBUTION WIDTH 22.3 % (11.5-14.5); UNCORRECTED WBC 15.2 10^3/ul (4.8-10.8); WHITE BLOOD COUNT 15.2 10^3/ul (4.8-10.8)
[2016-11-08 07:21] LABS: CONDITION 1; LH ANALYZER COMMENTS 1
--- NOTE | 2016-11-08 08:31 | RADRPT ---
PROCEDURE: US Retroperitoneum CLINICAL INDICATION: UTI TECHNIQUE: Multiple sonographic images of the kidneys and bladder were obtained. Evaluation was p erformed as well with barker scale and color and Doppler evaluation using a curved array transducer. The images were reviewed on a high-resolution PACS workstation. COMPARISON: No prior studies are available for comparison. FINDINGS: The kidneys are well visualized. The right kidney measures 9.3 cm in length. The left kidney is not visualized. No solid renal mass, calculus, hydronephrosis or perinephric fluid collection is ident ified. The bladder is grossly unremarkable. Hepatic steatosis is incidentally noted. IMPRESSION: 1. Unremarkable appearance of the right kidney and urinary bladder. 2. The left kidney was not visualized. 3. Hepatic steatosis is incidentally noted. RPTAT: QQ .Guilherme De La Rosa MD, Date Time Electronically viewed and signed by .Guilherme De La Rosa MD, on 11/08/2016 08:30 .R/
[2016-11-08] MEDS: BENZONATATE 100 MG CAP PO SCH ×2 (10:00→14:09)
[2016-11-08] MEDS: DILTIAZEM (CD) 120 MG CAP PO SCH (10:30)
[2016-11-08] MEDS ORDERED: morphine 2 MG INJ IV ONE (10:30)
[2016-11-08] MEDS: GABAPENTIN 300 MG CAP PO SCH ×2 (10:30→14:09)
--- NOTE | 2016-11-08 11:18 | PN ---
DATE: 11/08/2016 SUBJECTIVE: The patient is complaining abdominal started overnight. . No fevers, chills, nausea, vomiting, no shortness of breath. OBJECTIVE: VITAL SIGNS: Blood pressure is 140/69, respiration 18, pulse 105, temperature 98.5. HEENT: Head is normocephalic. NECK: Supple. HEART: Regular rate. LUNGS: Show diminished breath sounds at the base. ABDOMEN: Soft, tender to palpation, positive rebound and guarding. . EXTREMITIES: Negative for clubbing, cyanosis, no edema. DERMATOLOGIC: No rashes. MUSCULOSKELETAL: No joint effusions. NEUROLOGIC: No change in exam. MEDICATIONS: The patient's medications have been reviewed. LABORATORY DATA: Shows a white count 15.2, hemoglobin 11.3, hematocrit 35.7, platelet count is 517. ASSESSMENT AND PLAN: 1. Acute abdominal pain. Etiology is unclear. Will get stat CT abdomen/ pelvis. Will give morphine 1mg iv x one. Monitor closely 2. Acute left frontal lacunar infarct with right-sided weakness. The patient is currently stable. Continue physical therapy and occupational therapy. 3. Right blurry vision. Etiology is likely from acute cerebrovascular accident. The patient is status post ophthalmology evaluation. Continue to monitor. 4. Nonoliguric acute kidney injury, etiology secondary to hemodynamics. Continue to monitor renal function closely on diuretics. 5. Urinary tract infection. The patient's urine culture positive for E. coli, currently on IV antibiotics. Will continue. 6. Cough, possible URI. Continue current medical management. 7. Chronic atrial fibrillation, rate controlled. Continue current medical management. Continue diltiazem. Continue Coumadin. INR is near goal. 8. History of liposarcoma. Status post radiation and resection. Questionable recurrence. Per patient, does not wish evaluation at this time and will follow up with her primary in the outpatient setting. 8. Neuropathy. Continue Neurontin. 9. Chronic pain syndrome. Continue current pain regimen. 10. Dyslipidemia. Continue statin therapy. 11. Anxiety disorder. Continue Xanax. 12. Anemia. Continue to monitor hemoglobin and hematocrit levels. 13. Hyperkalemia, resolved. Continue to monitor. 14. Gastrointestinal and deep venous thrombosis prophylaxis. Continue PPI and Coumadin. Dictated By: CRISTIANO ALVAREZ/AMADOU Conf#: [id number] DID#: [id number] MTDD
[2016-11-08] MEDS: HYDROCODONE/APAP (5/325) TAB PO PRN (14:09)
[2016-11-08] MEDS: DIGOXIN 0.125 MG TAB PO SCH (14:10)
[2016-11-08 14:22] LABS: POTASSIUM 3.5 mmol/L (3.5-5.1)
[2016-11-08 14:24] LABS: CREATININE 0.93 mg/dl (0.44-1.00)
--- NOTE | 2016-11-08 16:13 | RADRPT ---
PROCEDURE: CT Abdomen and Pelvis without contrast. CLINICAL INDICATION: Abdominal pain, difficulty urinating TECHNIQUE: CT of the abdomen and pelvis was performed on a multi-detector scanner without IV contr ast. Coronal and sagittal images were reformatted from the axial data set. One or more of the foll owing dose reduction techniques were used: automated exposure control, adjustment of the mA and/or kV according to patient size, use of iterative reconstruction technique. CTDI = 6.15 mGy. DLP = 318 .67 mGy-cm. COMPARISON: Ultrasound, 11/08/2016 FINDINGS: CT abdomen: Bibasilar atelectasis is noted. The heart size is normal, without pericardial effusion. The liver is fatty infiltrated, without evidence of focal mass. Gallbladder, biliary tree, pancreas and adren al glands are unremarkable. The spleen is not identified and may be surgically absent. Areas of ch ronic right renal cortical scarring are noted. There is severe chronic left renal atrophy. No urol ithiasis or obstructive uropathy is identified. Mild hiatal hernia is noted. The stomach is otherw ise grossly unremarkable. The aorta is of normal caliber. Aortic vascular calcifications are present. There is no retroperit swanson lymphadenopathy. The evan hepatis region is clear. CT pelvis: Inflammation and extraluminal gas are seen adjacent to sigmoid colon diverticula, compatible with pe rforated sigmoid diverticulitis. No loculated or drainable abscess collection is seen. There is no bowel obstruction. Mild retained fecal material is suggestive of constipation. Urinary bladder is grossly unremarkable. Uterus is surgically absent. Indeterminate cystic foci are seen in the bila teral adnexa measuring up to 10 cm on the left and 3 cm on the right. No pelvic lymphadenopathy or free fluid is identified. The surrounding osseous structures are remarkable for scoliosis and degenerative spondylosis of the spine. No osteolytic or osteoblastic lesion is detected. IMPRESSION: 1. The study is positive for perforated sigmoid colon diverticulitis, as above. No loculated or dr ainable abscess collection is seen at this time. 2. Indeterminate bilateral adnexal cystic foci are seen measuring up to 10 cm on the left - neoplas m cannot be excluded. Consider contrast enhanced CT or MRI of the pelvis for further evaluation. 3. Severe hepatic steatosis is noted. 4. Mild hiatal hernia is present. 5. Mild retained fecal material is suggestive of constipation. 6. Aortoiliac atherosclerotic calcifications are present. 7. There is chronic severe left renal atrophy. 8. The spleen and uterus are surgically absent. A call report was made to Zurdo Siddiqui on 11/08/2016 4:12:57 PM. RPTAT: QQ .Guilherme De La Rosa MD, MD Date Time Electronically viewed and signed by .Guilherme De La Rosa MD, on 11/08/2016 16:13 .R/
[2016-11-08] MEDS ORDERED: morphine 2 MG INJ IV PRN (17:00)
[2016-11-08] MEDS: WARFARIN 5 MG TAB PO SCH (17:11)
--- NOTE | 2016-11-08 17:24 | PN ---
DATE: 11/08/2016 SUBJECTIVE: No acute changes overnight. The patient is alert, lying comfortably in bed. Denies pain. No fevers. WBC 15.2, platelets 517, no shift , no bands. BUN 19, creatinine 0.93. ANTIMICROBIALS: The patient is on IV Rocephin. MICROBIOLOGY: Urine culture grew E. coli. DIAGNOSTICS: CT of the abdomen and pelvis revealed perforated sigmoid diverticulitis, no loculated or drainable abscess collection, severe hepatic steatosis, constipation, absence of spleen and uterus. PHYSICAL EXAMINATION: GENERAL: This is well-developed, well-nourished elderly woman who is lying comfortably in bed. HEENT: Head atraumatic, normocephalic. Sclerae anicteric. Buccal mucosa dry. NECK: Supple, trachea midline. CHEST: Rise symmetrical. Breath sounds diminished to bases. HEART: S1, S2. ABDOMEN: Soft. Bowel tones present. EXTREMITIES: Without cyanosis. ASSESSMENT: 1. Systemic inflammatory response syndrome secondary to #2 and #3. 2. Urinary tract infection. 3. Perforated diverticulitis, no drainable abscess at this time. 4. History of cerebrovascular accident. 5. Chronic atrial fibrillation. PLAN: The patient remains clinically stable. She is on Rocephin, we will add Flagyl for anaerobic coverage. Continue present care as per primary team and consultants. Pending surgical evaluation Dictated By: GARRICK PARKINSON CASTING CHIPPER for DAVID GERONIMO/NTS Conf#: [id number] DID#: [id number] MTDD
[2016-11-08] MEDS ORDERED: PIPER-TAZO 3.375 GM IV (PMX) 100 ML IVPB SCH (19:00)
[2016-11-08] MEDS ORDERED: DEXTROSE 5%-0.45% NACL 1,000 ML IV SCH (19:00)
[2016-11-08] MEDS ORDERED: metroNIDAZOLE 500 MG/NS (PMX) 100 ML IVPB SCH (22:00)
== END 2016-11-08 19:30 | disposition short-term general hospital (02) | DRG 57 ==
LOC: VRC 18:18
PROVIDERS: ADMIT Internal Medicine Nephrology; ATTEND Internal Medicine Nephrology
DX: I69.351 Hemiplegia and hemiparesis following cerebral infarction affecting right dominant side (principal); N17.9 Acute kidney failure, unspecified; S09.90XA Unspecified injury of head, initial encounter; N39.0 Urinary tract infection, site not specified; R65.10 Systemic inflammatory response syndrome (SIRS) of non-infectious origin without acute organ dysfunction; F01.50 Vascular dementia, unspecified severity, without behavioral disturbance, psychotic disturbance, mood disturbance, and anxiety; K57.20 Diverticulitis of large intestine with perforation and abscess without bleeding; H53.8 Other visual disturbances; Z79.02 Long term (current) use of antithrombotics/antiplatelets; Z86.73 Personal history of transient ischemic attack (TIA), and cerebral infarction without residual deficits; N18.9 Chronic kidney disease, unspecified; G62.9 Polyneuropathy, unspecified; G89.4 Chronic pain syndrome; F41.9 Anxiety disorder, unspecified; D64.9 Anemia, unspecified; Z85.72 Personal history of non-Hodgkin lymphomas; X58.XXXA Exposure to other specified factors, initial encounter; S00.81XA Abrasion of other part of head, initial encounter; I25.2 Old myocardial infarction; E87.6 Hypokalemia; R05 Cough; D72.829 Elevated white blood cell count, unspecified; F06.31 Mood disorder due to known physiological condition with depressive features; B96.20 Unspecified Escherichia coli [E. coli] as the cause of diseases classified elsewhere; K59.00 Constipation, unspecified; Z66 Do not resuscitate
CPT/HCPCS: 71010; 74176; 76775; 80048; 80053; 81001; 81003; 83735; 84100; 85025; 85610; 87081; 87086; 92507; 92523; 92610; 93971; 95852; 97110; 97112; 97116; 97163; 97167; 97530; 97535; J0696; J2270; J2543; J7042; L1820

== ENCOUNTER 2016-11-08 17:16 | Inpatient (IN) | payer MEDICARE, OTHER ==
[~2016-11-08] VITALS: Ht 160 cm; Wt 57.8 kg
[~2016-11-08 17:16] MED LIST: ACET325C PO; ALPR0.257 PO; ATOR10TA65 PO; COU75 PO; DIGO125T6 PO; DILT120C77 PO; DOCU-144 PO; FURO40TA4 PO; GABA300C16 PO; LANS30CA PO; POLY17PO6 PO; TRAV4OP25 BOTH EYES; ZOLP5TAB PO
[2016-11-08 20:52] VITALS: PULSE 93
[2016-11-08 20:56] VITALS: Ht 160 cm; Wt 57.8 kg
[2016-11-08] MEDS ORDERED: GUAIFENESIN/CODEINE 5ML CUP PO PRN (21:00)
[2016-11-08] MEDS ORDERED: ZOLPIDEM 5 MG TAB PO PRN (21:00)
[2016-11-08] MEDS ORDERED: ACETAMINOPHEN 325 MG TAB PO PRN (21:00)
[2016-11-08] MEDS ORDERED: POLYETHYLENE GLYCOL 17 GM PACKET PO PRN (21:00)
[2016-11-08] MEDS ORDERED: ALPRAZOLAM 0.25 MG TAB PO PRN (21:00)
[2016-11-08] MEDS ORDERED: DEXTROSE 5%-0.45% NACL 1,000 ML IV SCH (21:00)
[2016-11-08] MEDS ORDERED: DOCUSATE SODIUM 100 MG CAP PO PRN (21:00)
[2016-11-08] MEDS: ATORVASTATIN 10 MG TAB PO SCH (23:10)
[2016-11-08] MEDS: LATANOPROST 0.005% 2.5 ML OPH BOTH EYES SCH (23:10)
[2016-11-08] MEDS: BENZONATATE 100 MG CAP PO SCH (23:10)
[2016-11-08 23:25] VITALS: BP 138/64; RESP 16
[2016-11-09] VITALS (11 sets, daily range): BP systolic 119–128; BP diastolic 58–68; PULSE 74–104; RESP 16–20
[2016-11-09] MEDS: morphine 2 MG INJ IV PRN ×2 (03:35→19:45)
[2016-11-09] MEDS: PIPER-TAZO 3.375 GM IV (PMX) 100 ML IVPB SCH ×3 (05:13→21:34)
[2016-11-09] MEDS: LANSOPRAZOLE 30 MG CAP PO SCH (05:13)
--- NOTE | 2016-11-09 08:36 | HP ---
DATE OF ADMISSION: 11/08/2016 CHIEF COMPLAINT: Abdominal pain, perforated bowel. HISTORY OF PRESENT ILLNESS: This is a 71-year-old female with a past medical history of chronic atr ial fibrillation on Coumadin, history of hypertension, history of glaucoma, history of chronic lymph osarcoma, diagnosed at age 17, status post radiation therapy and surgical resection who initially ad mitted to [facility] approximately 2 weeks ago with progressive shortness of breath. At that time, the patient was complaining of shortness breath and lower extremity edema. The patient also had a recent fall with facial trauma. Upon arrival to the emergency room at [facility], the patie nt had a CT scan of the brain which showed evidence of old infarct. The patient subsequently was ad mitted for treatment. During her hospital course, the patient developed right-sided lower extremity weakness. An MRI of the brain was then performed which showed evidence of left frontal lobe lacuna r infarct. A carotid ultrasound and carotid MRA was performed which was negative for any significan t stenosis. The patient further, during the hospital course, developed right temporal headaches wit h right blurry eye vision. The patient was evaluated by rheumatology and was initially placed on st eroids. A right temporal biopsy was performed which was negative for any evidence of GCA. Steroids were then subsequently discontinued. A repeat MRI of the brain showing no further acute findings. The patient, at [facility], was also seen by ophthalmology and during the hospital course was noted to have normal interarticular pressures, and the patient's glycol meds were continued. Blurr y vision of the right eye remained unexplained per ophthalmology. Additionally, during the hospital course at [facility], the patient had a longstanding history of liposarcoma of the abdomen. An MRI sh owed 2 separate fluid collections which may have been a tumor or possible tumor infiltration on mallory pheral nerves of the sacrum. The patient, however, at that time refused further evaluation and keila tment until her acute symptoms and pain improved. The patient was then subsequently transferred to [facility] acute rehab for evaluation and physical therapy. [facility], the patient was stable. She was receiving physical therapy. Th e patient yesterday suddenly developed abdominal pain. A stat CT scan of the abdomen and pelvis was obtained which showed evidence of perforated sigmoid diverticulitis with no loculated drainable abs cess. The patient was also noted to have bilateral adnexal cyst measuring 10 cm in the left, possib le neoplasm. The patient was placed on IV antibiotics, was transferred from acute rehab to [facility] for observation and monitoring. Upon my evaluation of the patient currently at this time, she states that her abdominal pain is stab le but improving. She denies any fevers, any nausea or vomiting. The patient is complaining of mil d headache. The patient states that blurred vision is present with no real significant change. No other acute events noted. PAST MEDICAL HISTORY: As stated above, history of chronic AFib, history of old CVA, history of hype rtension, glaucoma, history of liposarcoma. PAST SURGICAL HISTORY: Previous tumor resection. ALLERGIES: THE PATIENT IS ALLERGIC TO INFLUENZA VACCINE AND LACTULOSE. FAMILY HISTORY: No family history of kidney disease or heart disease. SOCIAL HISTORY: Does not drink, smoke, or do drugs. MEDICATIONS: The patient's medications have been reviewed and reconciled. REVIEW OF SYSTEMS: A 14-point review of systems was conducted. Pertinent positives as stated in HP I, otherwise negative. PHYSICAL EXAMINATION: VITAL SIGNS: Blood pressure is currently 121/62, respiration 18, pulse 99, temperature 98.0. HEENT: Head is normocephalic. Pupils are reactive to light. NECK: Supple. HEART: Irregularly irregular. LUNGS: Show diminished breath sounds at the base, otherwise clear. ABDOMEN: Soft, positive tenderness to palpation right upper quadrant, right lower quadrant positive for rebound. Positive bowel sounds. EXTREMITIES: Negative for clubbing, cyanosis, edema. DERMATOLOGIC: No rashes. MUSCULOSKELETAL: No joint effusions. NEUROLOGIC: The patient has right-sided weakness. LABORATORY DATA: From 11/08/2016 shows white count 15.2, hemoglobin 11.3, hematocrit 35.7, platelet count is 517. Sodium 133, potassium 3.5, chloride 94, BUN 19, creatinine 0.93. Laboratory data fr om 11/09/2016 is pending. ASSESSMENT AND PLAN: 1. Acute diverticulitis with perforated sigmoid colon. The patient's CT scan shows evidence of per forated sigmoid colon with no evidence of loculated or drainable abscess. Plan at this point is to continue the patient on broad spectrum antibiotics of Zosyn. We will continue bowel rest. Continue IV hydration. A general surgery consult with Dr. Tray Coulter was placed. We will continue pain co ntrol with morphine and monitor closely. 2. Acute left lacunar infarct, right-sided weakness. The patient is currently stable. We will res ume PT and OT if the patient is able to tolerate. 3. Right blurred vision. Etiology is likely from recent CVA. We will continue to monitor. The fawad valdes is status post ophthalmology consultation and evaluation at outside hospital. 4. Nonoliguric acute kidney injury, etiology secondary to hemodynamics. Continue to monitor renal function closely. 5. Mild hyponatremia. The patient is currently on hypertonic fluid. We will change fluid to rodo l saline and monitor sodium levels closely. 6. Chronic atrial fibrillation, currently rate controlled. Continue diltiazem. Continue Coumadin for now. Monitor INR. Follow up with cardiology for evaluation. 7. History of liposarcoma. The patient is status post radiation and resection. There is a questio nable recurrence. CT scan and previous MRI showed an adnexal mass. We will continue to observe. 8. Neuropathy. Continue Neurontin. 9. Chronic pain syndrome. Continue current pain regimen. 10. Dyslipidemia. Continue statin therapy. 11. Anemia. Continue to monitor hemoglobin and hematocrit levels. 12. Anxiety disorder. Continue Xanax. 13. GI and DVT prophylaxis. Continue Pepcid and sequential leg squeezers and Coumadin. Please note, I spent 20 minutes of face to face with the patient, discussing code status. The patie nt is DNR. Dictated By: CRISTIANO JJ DO NR/NTS Conf#: [id number] DID#: [id number]
[2016-11-09] MEDS: DILTIAZEM (CD) 120 MG CAP PO SCH (09:12)
[2016-11-09] MEDS: FUROSEMIDE 20 MG TAB PO SCH (09:13)
[2016-11-09] MEDS: BENZONATATE 100 MG CAP PO SCH ×3 (09:13→19:44)
[2016-11-09 10:01] LABS: ADD SCAN DIFF NO
[2016-11-09 10:05] LABS: ABNORMAL IP MESSAGE 1; BASOPHILS % 0.2 % (0.0-2.0); EOSINOPHILS % 0.2 % (0.0-7.0); HEMATOCRIT 34.8 % (37.0-47.0); HEMOGLOBIN 10.5 g/dl (12.0-16.0); LYMPHOCYTES # 2.9 10^3/ul (0.8-2.9); LYMPHOCYTES % 15.7 % (15.0-51.0); MEAN CORPUSCULAR HEMOGLOBIN 24.1 pg (29.0-33.0); MEAN CORPUSCULAR HGB CONC 30.2 g/dl (32.0-37.0); MEAN CORPUSCULAR VOLUME 79.8 fl (82.0-101.0); MEAN PLATELET VOLUME 10.8 fl (7.4-10.4); MONOCYTE # 2.7 10^3/ul (0.3-0.9); MONOCYTES % 14.8 % (0.0-11.0); NEUTROPHIL # 12.4 10^3/ul (1.6-7.5); NEUTROPHILS % 67.4 % (39.0-77.0); NUCLEATED RED BLOOD CELLS% 0.2 /100WBC (0.0-0.0); PLATELET COUNT 491 10^3/UL (140-415); RED BLOOD COUNT 4.36 10^6/ul (4.20-5.40); RED CELL DISTRIBUTION WIDTH 22.2 % (11.5-14.5); WHITE BLOOD COUNT 18.3 10^3/ul (4.8-10.8)
[2016-11-09 10:12] LABS: INR 1.53; PROTIME 18.5 Sec (12.2-14.2); PT RATIO 1.4
[2016-11-09 10:15] LABS: CREATININE 1.1 mg/dl (0.44-1.00)
[2016-11-09 10:16] LABS: CALCIUM 8.9 mg/dl (8.4-10.2); MAGNESIUM 2.2 mg/dl (1.7-2.5); PHOSPHORUS 2.5 mg/dl (2.5-4.9)
[2016-11-09 10:25] LABS: POTASSIUM 2.9 mmol/L (3.5-5.1)
[2016-11-09] MEDS ORDERED: POTASSIUM CHLORIDE (SR) 20 MEQ TAB PO STA (10:32)
[2016-11-09] MEDS: D5W-0.45 NACL + KCL 30 MEQ 1,000 ML IV SCH (11:06)
--- NOTE | 2016-11-09 12:58 | PN ---
DATE: 11/09/2016 SUBJECTIVE: No acute events. The patient is alert, getting 2D echo. Currently she is in no distre ss, afebrile. WBC today 18.3 with H and H 10.5 and 34.8, platelets 491, no shift, no bands. BUN 17, creatinine 1. 10. ANTIMICROBIALS: The patient is on Zosyn and Rocephin. PHYSICAL EXAMINATION: GENERAL: This is a well-nourished, well-developed, fragile, elderly woman who is lying comfortably in bed. HEENT: Head atraumatic, normocephalic. Sclerae anicteric. Buccal mucosa dry. NECK: Supple. CHEST: Rise symmetrical. Breath sounds clear, diminished to bases. HEART: S1, S2. ABDOMEN: Slightly distended, soft. Bowel tones hypoactive. EXTREMITIES: Without cyanosis or edema. ASSESSMENT: 1. Perforated diverticulitis without drainable abscess as per CT of the abdomen. 2. Urinary tract infection with urine culture on 11/05/2016 grew Escherichia coli. 3. Chronic atrial fibrillation. 4. History of cerebrovascular accident. 5. Acute kidney injury. PLAN: The patient remains clinically stable. We are going to discontinue Rocephin, keep her on Zos yn, await for surgical recommendations, follow 2D echo results. Dictated By: GARRICK PARKINSON ELIGIBILITY MANAGER for DAVID GERONIMO/AMADOU Conf#: [id number] DID#: [id number]
[2016-11-09] MEDS: DIGOXIN 0.125 MG TAB PO SCH (13:38)
--- NOTE | 2016-11-09 14:34 | RADRPT ---
Echocardiogram Report Patient Name: MATTHEW KAMARA Gender: Female Date: 1945 Study Date: 09-Nov-2016 [facility]: [facility] Location: [address]. Physician: OSMIN GARCIA Quality: Technically Difficult Study Procedures: Transthoracic echocardiogram with complete 2D, M-Mode, and doppler examination. Indications: CARDIAC CLEARANCE. 2D/M Mode Doppler Measurement Value Normal Ranges Measurement Value Normal Ranges LVIDd 2D 4.2 3.5 - 5.6 cm AV Peak Camron 1.3 m/sec LVIDs 2D 3.1 2.1 - 4.1 cm AV Peak PG 6.0 mmHg FS 2D 26.5 % LVOT Peak Camron 0.8 m/sec LVPWd 2D 1.2 0.6 - 1.1 cm LVOT Peak PG 3.0 mmHg IVSd 2D 1.4 0.6 - 1.1 cm MV E Peak Camron 0.7 m/sec IVS/LVPW 2D 1.1 MV A Peak Camron 0.6 m/sec AoR Diam 2D 2.8 2.0 - 3.7 cm MV E/A 1.2 LA/Ao 2D 1 0 - 1 MV Decel Time 204 msec EDV 2D 75.2 cm3 MV E/A 1.2 ESV 2D 29.8 cm3 TR Peak Camron 2.7 m/sec LA Dimen 2D 4.1 2.3 - 4.0 cm TR Peak PG 29.0 mmHg Findings Left Ventricle: Normal left ventricular systolic function. Normal left ventricular cavity size. Mild concentric left ventricular hypertrophy. Ejection fraction is visually estimated at 60 %. Abnormal Diastolic Function. Right Ventricle: Normal right ventricular size. Left Atrium: There is mild enlargement of left atrium. Right Atrium: The right atrium is normal in size. Mitral Valve: Mild mitral leaflet calcification. Mild mitral annular calcification. Trace mitral regurgitation. Aortic Valve: No significant aortic stenosis or insufficiency. Trileaflet aortic valve. Tricuspid Valve: Tricuspid valve not well visualized. Estimated peak PA systolic pressure 29 mmHg. There is mild tricuspid regurgitation. Pulmonic Valve: There is trace pulmonic regurgitation. Pericardium: Normal pericardium with no significant pericardial effusion. Aorta: Normal aortic root. IVC: Normal size and normal respiratory collapse consistent with normal right atrial pressure. Conclusions 1.Normal left ventricular systolic function. Normal left ventricular cavity size. Mild concentric left ventricular hypertrophy. Ejection fraction is visually estimated at 60 %. Abnormal Diastolic Function. 2.There is mild enlargement of left atrium. 3.Mild mitral leaflet calcification. Mild mitral annular calcification. Trace mitral regurgitation. 4.No significant aortic stenosis or insufficiency. Trileaflet aortic valve. 5.Tricuspid valve not well visualized. Estimated peak PA systolic pressure 29 mmHg. There is mild tricuspid regurgitation. Electronically Signed By: Osmin Garcia 09-Nov-2016 14:34:00 -0800 Patient Name: MATTHEW KAMARA Study Date: 09-Nov-2016 [id number]
--- NOTE | 2016-11-09 15:48 | CONS ---
DATE OF ADMISSION: 11/08/2016 DATE OF CONSULTATION: TYPE OF CONSULTATION: Cardiology. REFERRING PHYSICIAN: Cristiano Jj DO. REASON FOR CONSULTATION: Atrial fibrillation. CHIEF COMPLAINT: Abdominal pain. HISTORY OF PRESENT ILLNESS: Thank you for this referral. History obtained from the patient, antoinette bryan review of the old chart, discussion with physician and staff. This is a very pleasant 71-year-o ld female with multiple complicated medical history who was in rehabilitation. The patient had onse t of abdominal pain and workup with CT scan has showed diverticulitis with perforated bowel. The fawad valdes has been transferred to telemetry and I have been asked to followup. The patient denies any c hest pain or pressure to me. Denies any palpitations. Rhythm strip was reviewed. The patient ronald ins in atrial fibrillation, which apparently has been a chronic issue for her. Heart rate under goo d control currently on a combination of digoxin and Cardizem. The patient also has been on Coumadin . However, the INR is subtherapeutic. The patient recently was admitted to [facility] prior to transfer to [facility]. She initially was admitted after a fall, the gama gonzalez had trauma. CT scan initially had shown evidence of old infarcts. During her hospital course, she had developed right-sided lower extremity weakness. MRI of the brain performed showed evidence of left frontal lobe lacunar infarct. PAST MEDICAL HISTORY: History of CVA as above. History of chronic atrial fibrillation, apparently has had an attempt of cardioversion in 06/2015, which did not last very long and she converted back to atrial fibrillation. History of hypertension, glaucoma and liposarcoma. History of DVT and PE i n the past. PAST SURGICAL HISTORY: History of previous tumor resection. ALLERGIES: INFLUENZA VACCINE AND LACTULOSE. FAMILY HISTORY: No reported early coronary artery disease. SOCIAL HISTORY: The patient does not smoke or drink. MEDICATIONS: As per medical reconciliation, personally reviewed. REVIEW OF SYSTEMS: She has ____ now, previously has been stable. She denied all others except for above-mentioned. PHYSICAL EXAMINATION: VITAL SIGNS: Temperature 98, heart rate of 73, blood pressure 123/68, respiratory rate of 19, satur ating 98%. HEENT: She has trauma on the right side. Eyes: Pupils equal and round. NECK: Supple, no JVD noted. CARDIOVASCULAR: Irregularly irregular. ____ systolic murmur. PULMONARY: With no wheezes, no rhonchi. GASTROINTESTINAL: Soft. Positive tenderness to palpation mostly in the left lower quadrant. No re bound or guarding. EXTREMITIES: With positive lower extremity edema. NEUROLOGIC: Awake, responds appropriately. PSYCHIATRIC: Appears to be calm and very pleasant. DERMATOLOGIC: There are no active bleeding sites except the ecchymosis around the eyes. LABORATORY/DIAGNOSTIC DATA: Sodium 135, potassium 2.9, BUN of 17, creatinine 1.1, glucose 122. Mag nesium is 2.2. INR is 1.53. WBC 18.3, hemoglobin of 10.5, platelets of 491. Echocardiogram was personally reviewed, which showed normal LV size and ejection fraction of 60%. L eft atrium is mildly dilated. Trace MR, mild TR noted. CT of the abdomen and pelvis has shown perf orated sigmoid colon diverticulitis. Ultrasound of lower extremities showed no evidence of DVT. ASSESSMENT AND PLAN: 1. Atrial fibrillation, currently on heart rate control, anticoagulation with Coumadin, which is s ubtherapeutic now. 2. Perforated diverticulitis. 3. History of hypertension, under good control now. 4. Status post recent cerebrovascular accident and history of deep venous thrombosis and pulmonary embolus by her report. 5. Renal insufficiency. 6. Hypokalemia. 7. Hyponatremia. 8. History of liposarcoma, status post radiation and resection. 9. History of neuropathy, stable on Neurontin. 10. Chronic pain syndrome. 12. Dyslipidemia. 13. Anemia. 14. Anxiety disorder. RECOMMENDATIONS: The patient is already on anticoagulation with Coumadin. Coumadin to be adjusted as per internal medicine as long as it is okay with the surgical team. Digoxin and Cardizem will be continued for the heart rate control. Antibiotic is being managed as per internal medicine. Stati n as tolerated will be continued. The patient is already being evaluated and seen ____ surgery as well. We will continue to follow along with you. Thank you for this referral. Dictated By: OSMIN PERES/AMADOU Conf#: [id number] DID#: [id number] CC: CRISTIANO JJ DO;*EndCC*
[2016-11-09] MEDS: WARFARIN 5 MG TAB PO SCH (17:30)
[2016-11-09] MEDS: ATORVASTATIN 10 MG TAB PO SCH (19:44)
[2016-11-09] MEDS ORDERED: CEFTRIAXONE 1 GM/50 ML (PMX) 50 ML IVPB SCH (21:00)
[2016-11-09] MEDS: ONDANSETRON 4 MG INJ IV PRN (21:33)
[2016-11-09] MEDS: LATANOPROST 0.005% 2.5 ML OPH BOTH EYES SCH (21:34)
[2016-11-10] VITALS (15 sets, daily range): BP systolic 113–124; BP diastolic 56–66; PULSE 26–78; RESP 16–20
[2016-11-10] MEDS: morphine 2 MG INJ IV PRN ×3 (04:23→21:35)
[2016-11-10] MEDS: ONDANSETRON 4 MG INJ IV PRN ×3 (04:23→21:35)
[2016-11-10] MEDS: LANSOPRAZOLE 30 MG CAP PO SCH (05:36)
[2016-11-10] MEDS: PIPER-TAZO 3.375 GM IV (PMX) 100 ML IVPB SCH ×3 (05:36→21:35)
[2016-11-10 06:10] LABS: ADD SCAN DIFF NO
[2016-11-10 06:20] LABS: INR 1.91; PROTIME 22.1 Sec (12.2-14.2); PT RATIO 1.7
[2016-11-10 06:27] LABS: POTASSIUM 3.9 mmol/L (3.5-5.1)
[2016-11-10 06:30] LABS: CREATININE 1.03 mg/dl (0.44-1.00)
[2016-11-10 06:31] LABS: CALCIUM 8.4 mg/dl (8.4-10.2); MAGNESIUM 2.2 mg/dl (1.7-2.5); PHOSPHORUS 2.7 mg/dl (2.5-4.9)
[2016-11-10 06:34] LABS: ABNORMAL IP MESSAGE 1; BASOPHILS % 0.3 % (0.0-2.0); EOSINOPHILS # 0.1 10^3/ul (0.0-0.5); EOSINOPHILS % 0.7 % (0.0-7.0); HEMATOCRIT 30.5 % (37.0-47.0); HEMOGLOBIN 9.2 g/dl (12.0-16.0); LYMPHOCYTES # 2.3 10^3/ul (0.8-2.9); LYMPHOCYTES % 19.4 % (15.0-51.0); MEAN CORPUSCULAR HEMOGLOBIN 24.3 pg (29.0-33.0); MEAN CORPUSCULAR HGB CONC 30.2 g/dl (32.0-37.0); MEAN CORPUSCULAR VOLUME 80.7 fl (82.0-101.0); MEAN PLATELET VOLUME 10.7 fl (7.4-10.4); MONOCYTE # 1.8 10^3/ul (0.3-0.9); NEUTROPHIL # 7.5 10^3/ul (1.6-7.5); NEUTROPHILS % 63.5 % (39.0-77.0); NUCLEATED RED BLOOD CELLS% 0.3 /100WBC (0.0-0.0); PLATELET COUNT 522 10^3/UL (140-415); RED BLOOD COUNT 3.78 10^6/ul (4.20-5.40); RED CELL DISTRIBUTION WIDTH 21.7 % (11.5-14.5); WHITE BLOOD COUNT 11.8 10^3/ul (4.8-10.8)
[2016-11-10] MEDS: FUROSEMIDE 20 MG TAB PO SCH (08:41)
[2016-11-10] MEDS: BENZONATATE 100 MG CAP PO SCH ×3 (08:41→21:34)
[2016-11-10] MEDS: DILTIAZEM (CD) 120 MG CAP PO SCH (08:42)
[2016-11-10] MEDS: D5W-0.45 NACL + KCL 30 MEQ 1,000 ML IV SCH (10:07)
--- NOTE | 2016-11-10 10:27 | CONS ---
Date/Time of Note Date/Time of Note DATE: 11/10/16 TIME: 10:26 Assessment/Plan Assessment/Plan Chief Complaint/Hosp Course ID PROGRESS NOTE TOTAL ABX DAY # Zosyn 24H INTERVAL SUMMARY * A/A/O reports right upper quad/thoracic rib pleuritic type "pain when I cough " * (+)Chest congestion w/bronchial cough, not able to clear secretions * No fevers, WBC downtrend * X-RAY TODAY: PROCEDURE: XR Abdomen. IMPRESSION: Nonspecific bowel gas pattern with no evidence of obstruction or pneumoperitoneum. Rotary dextroscoliosis lumbar spine. PHYSICAL EXAMINATION: GENERAL: VSS, NAD HEENT: Unremarkable NECK: Trach midline CHEST: Rise symmetrical - without dyspnea on observation HEART: RRR ABDOMEN: Soft, EXTREMITIES: Warm, ID ASSESSMENT: 71 yo F w/PMHx 1. Perforated diverticulitis without drainable abscess as per CT of the abdomen. 2. Urinary tract infection with urine culture on 11/05/2016 grew Escherichia coli. 3. Chronic atrial fibrillation. 4. History of cerebrovascular accident. 5. Acute kidney injury. 6. Pleuritic chest pain Right side w/congested cough 7. Severe hepatic steatosis (-)MRSA Nares INVASIVES: *PIV ABX ALLERGIES: Flu Shot CURRENT ABX: Zosyn ID RECOMMENDATIONS: Continue Zosyn Repeat CXR worsening bronchial cough, unable to clear secretions w/right pleuritic type chest pain . Problems: Consultation Date/Type/Reason Admit Date/Time Nov 08, 2016 at 19:30 Initial Consult Date Exam/Review of Systems Vital Signs Vitals Vital Signs Date Time Temp Pulse Resp B/P Pulse Ox O2 Delivery O2 Flow Rate FiO2 11/10/16 08:04 70 11/10/16 07:34 98.1 18 121/58 93 11/10/16 04:17 Room Air Intake and Output 11/09/16 11/09/16 11/10/16 15:00 23:00 07:00 Output Total 1200 ml Balance -1200 ml Results Result Diagram: 11/10/16 0535 11/10/16 0535 Results 24 hrs Laboratory Tests Test 11/10/16 05:35 Anion Gap 14 Basophils # 0.0 Basophils % 0.3 Blood Urea Nitrogen 16 Calcium Level 8.4 Carbon Dioxide Level 25 Chloride Level 102 Creatinine 1.03 H Eosinophils # 0.1 Eosinophils % 0.7 Glucose Level 92 Hematocrit 30.5 L Hemoglobin 9.2 L INR International Normalized Ratio 1.91 Lymphocytes # 2.3 Lymphocytes % 19.4 Magnesium Level 2.2 Mean Corpuscular Hemoglobin 24.3 L Mean Corpuscular Hemoglobin Concent 30.2 L Mean Corpuscular Volume 80.7 L Mean Platelet Volume 10.7 H Monocytes # 1.8 H Monocytes % 15.0 H Neutrophils # 7.5 Neutrophils % 63.5 Nucleated Red Blood Cells # 0.0 Nucleated Red Blood Cells % 0.3 H Phosphorus Level 2.7 Platelet Count 522 H Potassium Level 3.9 Prothrombin Time 22.1 H Prothrombin Time Ratio 1.7 Red Blood Count 3.78 L Red Cell Distribution Width 21.7 H Sodium Level 137 White Blood Count 11.8 #H Medications Medications Current Medications Piperacillin Sod/ Tazobactam Sod (Zosyn 3.375gm/ 100 ml (Pmx)) 100 ml @ 200 mls /hr Q8 IVPB Last administered on 11/10/16 05:36; Admin Dose 200 MLS/HR; Start 11/09/16 at 06:00 Morphine Sulfate (morphine) 1 mg Q4H PRN IV PAIN Last administered on 03:35; Admin Dose 1 MG; Start 11/08/16 at 21:00 Acetaminophen (Tylenol Tab) 650 mg Q4H PRN PO PAIN AND OR ELEVATED TEMP Last administered on 11/09/16 09:13; Admin Dose 650 MG; Start 11/08/16 at 21:00 Alprazolam (Xanax) 0.25 mg Q6H PRN PO ANXIETY; Start 11/08/16 at 21:00 Atorvastatin Calcium (Lipitor) 10 mg HS PO Last administered on 11/09/16 19:44 ; Admin Dose 10 MG; Start 11/08/16 at 21:00 Benzonatate (Tessalon) 200 mg TID PO Last administered on 11/10/16 08:41; Admin Dose 200 MG; Start 11/08/16 at 21:00 Digoxin (Digoxin) 0.125 mg DAILY@13 PO Last administered on 11/09/16 13:38; Admin Dose 0.125 MG; Start 11/09/16 at 13:00 Diltiazem HCl (Cardizem Cd) 120 mg DAILY PO Last administered on 11/10/16 08: 42; Admin Dose 120 MG; Start 11/09/16 at 09:00 Docusate Sodium (Colace) 100 mg BID PRN PO CONSTIPATION; Start 11/08/16 at 21:00 Furosemide (Lasix) 20 mg DAILY PO Last administered on 11/10/16 08:41; Admin Dose 20 MG; Start 11/09/16 at 09:00 Guaifenesin/ Codeine Phosphate (Robitussin Ac Liquid Cup) 5 ml Q4H PRN PO COUGH Last administered on 11/10/16 05:36; Admin Dose 5 ML; Start 11/08/16 at 21 :00 Lansoprazole (Prevacid) 30 mg DAILY@06 PO Last administered on 11/10/16 05:36 ; Admin Dose 30 MG; Start 11/09/16 at 06:00 Latanoprost (Xalatan) 1 drop HS BOTH EYES Last administered on 11/09/16 21:34 ; Admin Dose 1 DROP; Start 11/08/16 at 21:00 Morphine Sulfate (morphine) 2 mg Q4H PRN IV SEVERE PAIN LEVEL 7-10 Last administered on 11/10/16 04:23; Admin Dose 2 MG; Start 11/08/16 at 21:00 Warfarin Sodium (Coumadin) 5 mg DAILY@17 PO Last administered on 11/09/16 17: 30; Admin Dose 5 MG; Start 11/09/16 at 17:00 Polyethylene Glycol (Miralax) 17 gm DAILY PRN PO CONSTIPATION; Start 11/08/16 at 21:00 Zolpidem Tartrate 5 mg 5 mg HS PRN PO INSOMNIA; Start 11/08/16 at 21:00 Potassium Chloride/Dextrose/ Sod Cl (D5-1/2ns + KCl 30 Meq) 1,000 ml @ 50 mls/ hr Q20H IV Last administered on 11/10/16 10:07; Admin Dose 50 MLS/HR; Start at 11:00 Ondansetron HCl (Zofran Inj) 4 mg Q6H PRN IV NAUSEA AND/OR VOMITING Last administered on 11/10/16 04:23; Admin Dose 4 MG; Start 11/09/16 at 21:00 BRISEYDA TURK NP Nov 10, 2016 10:26
--- NOTE | 2016-11-10 11:07 | PN ---
DATE: 11/10/2016 SUBJECTIVE: The patient is clinically stable, she continues to have abdominal pain, but is controll ed with pain medications. There have been no reports of fever. Positive nausea, no hemoptysis, hem atemesis or hematochezia. OBJECTIVE: VITAL SIGNS: Blood pressure is 121/58, respiration 18, pulse 60, temperature 98.1. HEENT: Head is normocephalic. NECK: Supple. HEART: Regular rate. LUNGS: Show diminished breath sounds at the base. ABDOMEN: Soft, positive tenderness to palpation right upper quadrant. Positive rebound, no volunta ry guarding. EXTREMITIES: Negative for clubbing, cyanosis, edema. DERMATOLOGIC: No rashes. MUSCULOSKELETAL: No joint effusions. NEUROLOGIC: The patient has right-sided weakness. LABORATORY DATA: Shows a sodium 137, potassium 3.9, chloride 102, BUN 16, creatinine 1.03. White c ount 11.8, hemoglobin 9.2, hematocrit 30.5, and platelet count 522. INR is 1.91. ASSESSMENT AND PLAN: 1. Acute diverticulitis with perforated sigmoid colon. The patient's CT scan was reviewed. Robert mullins has been seen by general surgeon, Dr. Coulter. At this point, no plans for surgery. We will cont inue current medical management. Continue IV antibiotics, continue IV fluids and continue bowel res t. We will follow up with general surgery for further recommendations. Also, continue pain control . 2. Acute left lacunar infarct with right-sided weakness. The patient is currently stable. Continu e PT, OT. 3. Right blurry vision. Etiology secondary to recent CVA. The patient has been stable. The js ent has been seen by ophthalmology in outpatient setting. Continue to monitor. 3. Nonoliguric acute kidney injury. Etiology is hemodynamics. Renal function is improving. Arie nue supportive care, renally dose meds, avoid nephrotoxins. 4. Mild hyponatremia, improved. Continue to monitor. 5. Chronic atrial fibrillation, currently rate controlled. Continue current medical management. I NR is near goal. Follow up with cardiology. Appreciate their help with evaluation. 6. History of liposarcoma. The patient is status post radiation resection. There is a possibility of recurrence. The patient's CT scan and previous MRI showed adnexal mass. Will continue to monit or. 7. Neuropathy. Continue Neurontin. 8. Chronic pain syndrome. Continue current pain regimen. 9. Dyslipidemia. Continue statin therapy. 10. Anemia. Continue to monitor hemoglobin and hematocrit levels. 11. Anxiety disorder. Continue Xanax. 12. Gastrointestinal and deep venous thrombosis prophylaxis. Continue Pepcid, sequential leg squee zers and Coumadin. Dictated By: CRISTIANO ALVAREZ/AMADOU Conf#: [id number] DID#: [id number]
--- NOTE | 2016-11-10 11:14 | PN ---
Date/Time of Note Date/Time of Note DATE: 11/10/16 TIME: 11:13 Assessment/Plan VTE Prophylaxis VTE Prophylaxis Intervention: SCD's Lines/Catheters IV Catheter Type (from Nrsg): Peripheral IV Assessment/Plan Assessment/Plan 1. Atrial fibrillation, currently on heart rate control, anticoagulation with Coumadin 2. Perforated diverticulitis. 3. History of hypertension, under good control now. 4. Status post recent cerebrovascular accident and history of deep venous thrombosis and pulmonary embolus by her report. 5. Renal insufficiency. 6. Hypokalemia. 7. Hyponatremia. 8. History of liposarcoma, status post radiation and resection. 9. History of neuropathy, stable on Neurontin. 10. Chronic pain syndrome. 12. Dyslipidemia. 13. Anemia. 14. Anxiety disorder. RECOMMENDATIONS: The patient is already on anticoagulation with Coumadin. Coumadin to be adjusted as per internal medicine as long as it is okay with the surgical team. Digoxin and Cardizem will be continued for the heart rate control. Antibiotic is being managed as per internal medicine. Statin as tolerated will be continued. Subjective 24 Hr Interval Summary Free Text/Dictation the patient improving Exam/Review of Systems Vital Signs Vitals Vital Signs Date Time Temp Pulse Resp B/P Pulse Ox O2 Delivery O2 Flow Rate FiO2 11/10/16 08:04 70 11/10/16 07:34 98.1 18 121/58 93 11/10/16 04:17 Room Air Intake and Output 11/09/16 11/09/16 11/10/16 15:00 23:00 07:00 Output Total 1200 ml Balance -1200 ml Results Result Diagram: 11/10/16 0535 11/10/16 0535 Results 24 hrs Laboratory Tests Test 11/10/16 05:35 Anion Gap 14 Basophils # 0.0 Basophils % 0.3 Blood Urea Nitrogen 16 Calcium Level 8.4 Carbon Dioxide Level 25 Chloride Level 102 Creatinine 1.03 H Eosinophils # 0.1 Eosinophils % 0.7 Glucose Level 92 Hematocrit 30.5 L Hemoglobin 9.2 L INR International Normalized Ratio 1.91 Lymphocytes # 2.3 Lymphocytes % 19.4 Magnesium Level 2.2 Mean Corpuscular Hemoglobin 24.3 L Mean Corpuscular Hemoglobin Concent 30.2 L Mean Corpuscular Volume 80.7 L Mean Platelet Volume 10.7 H Monocytes # 1.8 H Monocytes % 15.0 H Neutrophils # 7.5 Neutrophils % 63.5 Nucleated Red Blood Cells # 0.0 Nucleated Red Blood Cells % 0.3 H Phosphorus Level 2.7 Platelet Count 522 H Potassium Level 3.9 Prothrombin Time 22.1 H Prothrombin Time Ratio 1.7 Red Blood Count 3.78 L Red Cell Distribution Width 21.7 H Sodium Level 137 White Blood Count 11.8 #H Medications Medications Current Medications Piperacillin Sod/ Tazobactam Sod (Zosyn 3.375gm/ 100 ml (Pmx)) 100 ml @ 200 mls /hr Q8 IVPB Last administered on 11/10/16 05:36; Admin Dose 200 MLS/HR; Start 11/09/16 at 06:00 Morphine Sulfate (morphine) 1 mg Q4H PRN IV PAIN Last administered on 03:35; Admin Dose 1 MG; Start 11/08/16 at 21:00 Acetaminophen (Tylenol Tab) 650 mg Q4H PRN PO PAIN AND OR ELEVATED TEMP Last administered on 11/09/16 09:13; Admin Dose 650 MG; Start 11/08/16 at 21:00 Alprazolam (Xanax) 0.25 mg Q6H PRN PO ANXIETY; Start 11/08/16 at 21:00 Atorvastatin Calcium (Lipitor) 10 mg HS PO Last administered on 11/09/16 19:44 ; Admin Dose 10 MG; Start 11/08/16 at 21:00 Benzonatate (Tessalon) 200 mg TID PO Last administered on 11/10/16 08:41; Admin Dose 200 MG; Start 11/08/16 at 21:00 Digoxin (Digoxin) 0.125 mg DAILY@13 PO Last administered on 11/09/16 13:38; Admin Dose 0.125 MG; Start 11/09/16 at 13:00 Diltiazem HCl (Cardizem Cd) 120 mg DAILY PO Last administered on 11/10/16 08: 42; Admin Dose 120 MG; Start 11/09/16 at 09:00 Docusate Sodium (Colace) 100 mg BID PRN PO CONSTIPATION; Start 11/08/16 at 21:00 Furosemide (Lasix) 20 mg DAILY PO Last administered on 11/10/16 08:41; Admin Dose 20 MG; Start 11/09/16 at 09:00 Guaifenesin/ Codeine Phosphate (Robitussin Ac Liquid Cup) 5 ml Q4H PRN PO COUGH Last administered on 11/10/16 05:36; Admin Dose 5 ML; Start 11/08/16 at 21 :00 Lansoprazole (Prevacid) 30 mg DAILY@06 PO Last administered on 11/10/16 05:36 ; Admin Dose 30 MG; Start 11/09/16 at 06:00 Latanoprost (Xalatan) 1 drop HS BOTH EYES Last administered on 11/09/16 21:34 ; Admin Dose 1 DROP; Start 11/08/16 at 21:00 Morphine Sulfate (morphine) 2 mg Q4H PRN IV SEVERE PAIN LEVEL 7-10 Last administered on 11/10/16 04:23; Admin Dose 2 MG; Start 11/08/16 at 21:00 Warfarin Sodium (Coumadin) 5 mg DAILY@17 PO Last administered on 11/09/16 17: 30; Admin Dose 5 MG; Start 11/09/16 at 17:00 Polyethylene Glycol (Miralax) 17 gm DAILY PRN PO CONSTIPATION; Start 11/08/16 at 21:00 Zolpidem Tartrate 5 mg 5 mg HS PRN PO INSOMNIA; Start 11/08/16 at 21:00 Potassium Chloride/Dextrose/ Sod Cl (D5-1/2ns + KCl 30 Meq) 1,000 ml @ 50 mls/ hr Q20H IV Last administered on 11/10/16 10:07; Admin Dose 50 MLS/HR; Start at 11:00 Ondansetron HCl (Zofran Inj) 4 mg Q6H PRN IV NAUSEA AND/OR VOMITING Last administered on 11/10/16 04:23; Admin Dose 4 MG; Start 11/09/16 at 21:00 TOSHA OLMOS MD Nov 10, 2016 11:14
[2016-11-10] MEDS: DIGOXIN 0.125 MG TAB PO SCH (13:04)
--- NOTE | 2016-11-10 14:08 | RADRPT ---
PROCEDURE: XR Abdomen. CLINICAL INDICATION: peforated bowel TECHNIQUE: AP abdomen x-ray. COMPARISON: CT abdomen and pelvis November 08 FINDINGS: There is a nonspecific bowel gas pattern with no evidence of obstruction or pneumoperitoneum. No ab normal abdominal or pelvic calcifications are noted. There is rotary dextroscoliosis of the lower l umbar spine. IMPRESSION: Nonspecific bowel gas pattern with no evidence of obstruction or pneumoperitoneum. Rotary dextroscoliosis lumbar spine. .Bishop Burnette MD, Date Time Electronically viewed and signed by .Bishop Burnette MD, on 11/10/2016 14:08 .A/
[2016-11-10] MEDS: WARFARIN 5 MG TAB PO SCH (16:14)
[2016-11-10] MEDS: ATORVASTATIN 10 MG TAB PO SCH (21:34)
[2016-11-10] MEDS: LATANOPROST 0.005% 2.5 ML OPH BOTH EYES SCH (22:36)
[2016-11-11] VITALS (13 sets, daily range): BP systolic 123–137; BP diastolic 57–67; PULSE 40–65; RESP 16–18
[2016-11-11] MEDS: D5W-0.45 NACL + KCL 30 MEQ 1,000 ML IV SCH ×2 (03:00→23:00)
[2016-11-11] MEDS: LANSOPRAZOLE 30 MG CAP PO SCH (05:44)
[2016-11-11] MEDS: PIPER-TAZO 3.375 GM IV (PMX) 100 ML IVPB SCH ×3 (05:44→21:15)
[2016-11-11 06:13] LABS: EOSINOPHILS # 0.1 10^3/ul (0.0-0.5); EOSINOPHILS % 1.3 % (0.0-7.0); HEMATOCRIT 29.6 % (37.0-47.0); HEMOGLOBIN 9.2 g/dl (12.0-16.0); LYMPHOCYTES # 1.5 10^3/ul (0.8-2.9); LYMPHOCYTES % 13.9 % (15.0-51.0); MEAN CORPUSCULAR HEMOGLOBIN 24.9 pg (29.0-33.0); MEAN CORPUSCULAR HGB CONC 30.9 g/dl (32.0-37.0); MEAN CORPUSCULAR VOLUME 80.4 fl (82.0-101.0); MONOCYTE # 1.5 10^3/ul (0.3-0.9); MONOCYTES % 13.6 % (0.0-11.0); NEUTROPHIL # 7.6 10^3/ul (1.6-7.5); NEUTROPHILS % 71.2 % (39.0-77.0); PLATELET COUNT 461 10^3/UL (140-440); RED BLOOD COUNT 3.69 10^6/ul (4.20-5.40); RED CELL DISTRIBUTION WIDTH 23.3 % (11.5-14.5); UNCORRECTED WBC 10.7 10^3/ul (4.8-10.8); WHITE BLOOD COUNT 10.7 10^3/ul (4.8-10.8)
[2016-11-11 06:18] LABS: INR 2.63; PROTIME 28.4 Sec (12.2-14.2); PT RATIO 2.2
[2016-11-11 06:25] LABS: CONDITION 1; LH ANALYZER COMMENTS 1; NUCLEATED RED BLOOD CELLS # 0.2 10^3/ul (0.0-0.0)
[2016-11-11 06:52] LABS: POTASSIUM 3.6 mmol/L (3.5-5.1)
[2016-11-11 06:55] LABS: CREATININE 0.98 mg/dl (0.44-1.00)
[2016-11-11 06:56] LABS: CALCIUM 8.6 mg/dl (8.4-10.2); MAGNESIUM 2.1 mg/dl (1.7-2.5); PHOSPHORUS 3.1 mg/dl (2.5-4.9)
[2016-11-11] MEDS: BENZONATATE 100 MG CAP PO SCH ×3 (09:14→21:14)
[2016-11-11] MEDS: FUROSEMIDE 20 MG TAB PO SCH (09:14)
[2016-11-11] MEDS: DILTIAZEM (CD) 120 MG CAP PO SCH (09:15)
--- NOTE | 2016-11-11 09:27 | CONS ---
DATE OF ADMISSION: 11/08/2016 DATE OF CONSULTATION: 11/08/2016 TYPE OF CONSULTATION: Surgical. REFERRING PHYSICIAN: Dr. Zurdo Keenan. CHIEF COMPLAINT: 1. Abdominal pain. 2. Micro-perforated diverticulitis. 3. Leukocytosis. 4. Anemia. HISTORY OF PRESENT ILLNESS: Lulu Albarran is a 71-year-old female with multiple comorbidities who initially presented to [facility] 2 weeks ago with progressive shortness of breath with lower extremity edema and a fall with facial trauma. A CT scan at that point had shown evidence of older infarct, left frontal lobe lacunar infarct. Carotid ultrasound and MRI were negative for any stenos es. She developed right temporal headaches with right blurry eye vision and was started on steroids by dermatology. She subsequently had a temporal artery biopsy which was negative for GCA. Steroids were discontinued. She was subsequently transferred to [facility] for physical therapy . However, the day prior to transfer to the acute hospital, she started having abdominal pain that became worse with leukocytosis. CT scan was obtained, which identified perforated sigmoid diverticu litis without a fluid collection. Now a surgical consult is obtained for further evaluation and karishma atment. She also has bilateral adnexal cysts measuring 10 cm. She denies any fevers or chills. So me nausea but no vomiting. No chest pain. No shortness of breath. No visual or neurologic changes that are acute. No cough. She is having bowel function. No dysuria. No vaginal discharge. PAST MEDICAL HISTORY: 1. History of chronic atrial fibrillation 2. History of old cerebrovascular accident. 3. Hypertension. 4. Glaucoma. 5. Liposarcoma history. 6. Micro-perforated diverticulitis. 7. Facial trauma on fall. 8. Shortness of breath. 9. Lower extremity edema. 10. Right blurry vision. 11. Nonoliguric kidney injury. 12. Electrolyte abnormalities with hyponatremia. 13. Neuropathy. 14. Chronic pain syndrome. 15. Anemia. 16. Anxiety disorder. 17. Dyslipidemia. 18. History of DVT and PE. PAST SURGICAL HISTORY: 1. Abdominal ____sarcoma excision at age 17 followed by irradiation. 2. Appendectomy. 3. Pelvic surgery. 4. Attempted cardioversion in June of 2015. ALLERGIES: PER CHART. SOCIAL HISTORY: No current alcohol, drugs or tobacco. FAMILY HISTORY: Noncontributory. REVIEW OF SYSTEMS: A 12-point review of system reported as per HPI, otherwise negative. PHYSICAL EXAMINATION: VITAL SIGNS: Temperature is 98.1, pulse 81, blood pressure 138/64, saturating 94% on room air. GENERAL: No acute distress, comfortable. HEENT: Pupils are equal, reactive. No scleral icterus. NECK: Supple, no crepitus, no JVD. PULMONARY: Normal respiratory effort. No wheezing. CARDIAC: S1, S2 present. ABDOMEN: Soft and tender in the lower quadrant. No rebound, no guarding, not rigid. EXTREMITIES: Minimal edema. VASCULAR: Capillary refill is 2 seconds. NEUROLOGIC: Alert, oriented, moves all 4 extremities grossly. LABORATORY DATA AND RADIOGRAPHIC: WBCs 15. CT noted. ASSESSMENT AND PLAN: Ms. Lulu Gauthier is a 71-year-old female with multiple significant comorbidit ies. 1. Micro-perforated diverticulitis with stable hemodynamics. This may have sealed. Continue antib iotics, supportive care and n.p.o. status. This may heal. The patient will benefit from eventual l aparoscopic resection of this site. However, the patient is not very eager for surgery even at this time. If she does not improve or worsens, she may require surgical intervention if she agrees to i t at that time. 2. 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 Defer to oncology. She currently has adnexal lesions which need to be also further evaluated with further imaging and oncology. 3. Acute left lacunar infarct with right-sided weakness. Currently stable. 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 4. Chronic atrial fibrillation. Continue medical optimization and rate control and anticoagulation . 5. Anemia without evidence of acute blood loss. Continue close observation. 6. Leukocytosis secondary to above. Thank you very much for consulting me in this patient's care. Dictated By: CRYS MANZANARES/AMADOU Conf#: [id number] DID#: [id number]
[2016-11-11] MEDS: ONDANSETRON 4 MG INJ IV PRN ×2 (09:28→21:29)
[2016-11-11] MEDS: morphine 2 MG INJ IV PRN ×2 (09:29→21:21)
--- NOTE | 2016-11-11 09:53 | RADRPT ---
PROCEDURE: XR Chest. CLINICAL INDICATION: Shortness of breath. TECHNIQUE: Single frontal view. COMPARISON: 11/06/2016. FINDINGS: There is mild atelectasis at the lung bases, slightly worse. The heart is enlarged. There is calcification in the aorta consistent with atherosclerosis. There is no pleural effusion. There is no pneumothorax. IMPRESSION: 1. Slightly worse appearance of the lung bases. 2. Cardiomegaly and atherosclerosis. RPTAT: QQ .Juice Gayle MD, MD Date Time Electronically viewed and signed by .Juice Gayle MD, MD on 11/11/2016 09:53 .R/
--- NOTE | 2016-11-11 12:09 | CONS ---
Date/Time of Note Date/Time of Note DATE: 11/11/16 TIME: 12:08 Consultation Date/Type/Reason Admit Date/Time Nov 08, 2016 at 19:30 Initial Consult Date 24 HR Interval Summary Free Text/Dictation Assessment/Plan 1. Atrial fibrillation, currently on heart rate control, anticoagulation with Coumadin 2. Perforated diverticulitis. 3. History of hypertension, under good control now. 4. Status post recent cerebrovascular accident and history of deep venous thrombosis and pulmonary embolus by her report. 5. Renal insufficiency. 6. Hypokalemia. 7. Hyponatremia. 8. History of liposarcoma, status post radiation and resection. 9. History of neuropathy, stable on Neurontin. 10. Chronic pain syndrome. 12. Dyslipidemia. 13. Anemia. 14. Anxiety disorder. RECOMMENDATIONS: The patient is already on anticoagulation with Coumadin. Coumadin to be adjusted as per internal medicine as long as it is okay with the surgical team. Digoxin and Cardizem will be continued for the heart rate control. Antibiotic is being managed as per internal medicine. Statin as tolerated will be continued. Exam/Review of Systems Vital Signs Vitals Vital Signs Date Time Temp Pulse Resp B/P Pulse Ox O2 Delivery O2 Flow Rate FiO2 11/11/16 12:00 55 11/11/16 11:38 97.6 18 123/57 96 11/10/16 20:00 Room Air Intake and Output 11/10/16 11/10/16 11/11/16 15:00 23:00 07:00 Intake Total 100 ml 900 ml 900 ml Output Total 1100 ml Balance 100 ml 900 ml -200 ml Results Result Diagram: 11/11/16 0525 11/11/16 0525 Results 24 hrs Laboratory Tests Test 11/11/16 05:25 Anion Gap 13 Basophils # 0.0 Basophils % 0.0 Blood Morphology Comment Blood Urea Nitrogen 13 Calcium Level 8.6 Carbon Dioxide Level 25 Chloride Level 102 Creatinine 0.98 Eosinophils # 0.1 Eosinophils % 1.3 Glucose Level 90 Hematocrit 29.6 L Hemoglobin 9.2 L INR International Normalized Ratio 2.63 Lymphocytes # 1.5 Lymphocytes % 13.9 L Magnesium Level 2.1 Mean Corpuscular Hemoglobin 24.9 L Mean Corpuscular Hemoglobin Concent 30.9 L Mean Corpuscular Volume 80.4 L Mean Platelet Volume 9.0 Monocytes # 1.5 H Monocytes % 13.6 H Neutrophils # 7.6 H Neutrophils % 71.2 Nucleated Red Blood Cells # 0.2 H Nucleated Red Blood Cells % 2.0 H Phosphorus Level 3.1 Platelet Count 461 H Potassium Level 3.6 Prothrombin Time 28.4 #H Prothrombin Time Ratio 2.2 Red Blood Count 3.69 L Red Cell Distribution Width 23.3 H Sodium Level 136 White Blood Count 10.7 Medications Medications Current Medications Piperacillin Sod/ Tazobactam Sod (Zosyn 3.375gm/ 100 ml (Pmx)) 100 ml @ 200 mls /hr Q8 IVPB Last administered on 11/11/16 05:44; Admin Dose 200 MLS/HR; Start 11/09/16 at 06:00 Morphine Sulfate (morphine) 1 mg Q4H PRN IV PAIN Last administered on 03:35; Admin Dose 1 MG; Start 11/08/16 at 21:00 Acetaminophen (Tylenol Tab) 650 mg Q4H PRN PO PAIN AND OR ELEVATED TEMP Last administered on 11/09/16 09:13; Admin Dose 650 MG; Start 11/08/16 at 21:00 Alprazolam (Xanax) 0.25 mg Q6H PRN PO ANXIETY; Start 11/08/16 at 21:00 Atorvastatin Calcium (Lipitor) 10 mg HS PO Last administered on 11/10/16 21:34 ; Admin Dose 10 MG; Start 11/08/16 at 21:00 Benzonatate (Tessalon) 200 mg TID PO Last administered on 11/11/16 09:14; Admin Dose 200 MG; Start 11/08/16 at 21:00 Digoxin (Digoxin) 0.125 mg DAILY@13 PO Last administered on 11/10/16 13:04; Admin Dose 0.125 MG; Start 11/09/16 at 13:00 Diltiazem HCl (Cardizem Cd) 120 mg DAILY PO Last administered on 11/11/16 09: 15; Admin Dose 120 MG; Start 11/09/16 at 09:00 Docusate Sodium (Colace) 100 mg BID PRN PO CONSTIPATION Last administered on 09:13; Admin Dose 100 MG; Start 11/08/16 at 21:00 Furosemide (Lasix) 20 mg DAILY PO Last administered on 11/11/16 09:14; Admin Dose 20 MG; Start 11/09/16 at 09:00 Guaifenesin/ Codeine Phosphate (Robitussin Ac Liquid Cup) 5 ml Q4H PRN PO COUGH Last administered on 11/10/16 05:36; Admin Dose 5 ML; Start 11/08/16 at 21 :00 Lansoprazole (Prevacid) 30 mg DAILY@06 PO Last administered on 11/11/16 05:44 ; Admin Dose 30 MG; Start 11/09/16 at 06:00 Latanoprost (Xalatan) 1 drop HS BOTH EYES Last administered on 11/10/16 22:36 ; Admin Dose 1 DROP; Start 11/08/16 at 21:00 Morphine Sulfate (morphine) 2 mg Q4H PRN IV SEVERE PAIN LEVEL 7-10 Last administered on 11/11/16 09:29; Admin Dose 2 MG; Start 11/08/16 at 21:00 Warfarin Sodium (Coumadin) 5 mg DAILY@17 PO Last administered on 11/10/16 16: 14; Admin Dose 5 MG; Start 11/09/16 at 17:00; Status Future Hold Polyethylene Glycol (Miralax) 17 gm DAILY PRN PO CONSTIPATION; Start 11/08/16 at 21:00 Zolpidem Tartrate 5 mg 5 mg HS PRN PO INSOMNIA; Start 11/08/16 at 21:00 Potassium Chloride/Dextrose/ Sod Cl (D5-1/2ns + KCl 30 Meq) 1,000 ml @ 50 mls/ hr Q20H IV Last administered on 11/11/16 03:00; Admin Dose 50 MLS/HR; Start at 11:00 Ondansetron HCl (Zofran Inj) 4 mg Q6H PRN IV NAUSEA AND/OR VOMITING Last administered on 11/11/16 09:28; Admin Dose 4 MG; Start 11/09/16 at 21:00 JORDYN HERNANDEZ MD Nov 11, 2016 12:09
--- NOTE | 2016-11-11 13:14 | CONS ---
Date/Time of Note Date/Time of Note DATE: 11/11/16 TIME: 13:11 Assessment/Plan Assessment/Plan Chief Complaint/Hosp Course ID PROGRESS NOTE TOTAL ABX DAY # Zosyn 24H INTERVAL SUMMARY * Micro-perforated diverticulitis=> overall improved on ABX, per notes patient prefers conservative Rx * (+)Chest congestion w/bronchial cough, not able to clear secretions right upper quad/thoracic rib pleuritic type "pain when I cough" * CXR 11/11/16: IMPRESSION: 1. Slightly worse appearance of the lung bases.2. Cardiomegaly and atherosclerosis. * No fevers, WBC downtrend * X-RAY TODAY: PROCEDURE: XR Abdomen. IMPRESSION: Nonspecific bowel gas pattern with no evidence of obstruction or pneumoperitoneum. Rotary dextroscoliosis lumbar spine. PHYSICAL EXAMINATION: GENERAL: VSS, NAD HEENT: Unremarkable NECK: Trach midline CHEST: Rise symmetrical - without dyspnea on observation HEART: RRR ABDOMEN: Soft, EXTREMITIES: Warm, ID ASSESSMENT: 71 yo F w/PMHx 1. MICRO-Perforated diverticulitis without drainable abscess as per CT of the abdomen. * Patient prefers conservative ABX treatment over Ex-Lap at this time 2. Urinary tract infection with urine culture on 11/05/2016 grew Escherichia coli. 3. Chronic atrial fibrillation. 4. History of cerebrovascular accident. 5. Acute kidney injury. 6. Pleuritic chest pain Right side w/congested cough-> CXR 11/11/16 (+)ATX BLL 7. Severe hepatic steatosis (-)MRSA Nares INVASIVES: *PIV ABX ALLERGIES: Flu Shot CURRENT ABX: Zosyn ID RECOMMENDATIONS: Continue Zosyn Repeat CXR worsening BLL ATx w/(+)bronchial cough, unable to clear secretions w/ right pleuritic type chest pain -> Monitor . Problems: Consultation Date/Type/Reason Admit Date/Time Nov 08, 2016 at 19:30 Exam/Review of Systems Vital Signs Vitals Vital Signs Date Time Temp Pulse Resp B/P Pulse Ox O2 Delivery O2 Flow Rate FiO2 11/11/16 12:00 55 11/11/16 11:38 97.6 18 123/57 96 11/10/16 20:00 Room Air Intake and Output 11/10/16 11/10/16 11/11/16 15:00 23:00 07:00 Intake Total 100 ml 900 ml 900 ml Output Total 1100 ml Balance 100 ml 900 ml -200 ml Results Result Diagram: 11/11/1625 11/11/1625 Results 24 hrs Laboratory Tests Test 11/11/16 05:25 Anion Gap 13 Basophils # 0.0 Basophils % 0.0 Blood Morphology Comment Blood Urea Nitrogen 13 Calcium Level 8.6 Carbon Dioxide Level 25 Chloride Level 102 Creatinine 0.98 Eosinophils # 0.1 Eosinophils % 1.3 Glucose Level 90 Hematocrit 29.6 L Hemoglobin 9.2 L INR International Normalized Ratio 2.63 Lymphocytes # 1.5 Lymphocytes % 13.9 L Magnesium Level 2.1 Mean Corpuscular Hemoglobin 24.9 L Mean Corpuscular Hemoglobin Concent 30.9 L Mean Corpuscular Volume 80.4 L Mean Platelet Volume 9.0 Monocytes # 1.5 H Monocytes % 13.6 H Neutrophils # 7.6 H Neutrophils % 71.2 Nucleated Red Blood Cells # 0.2 H Nucleated Red Blood Cells % 2.0 H Phosphorus Level 3.1 Platelet Count 461 H Potassium Level 3.6 Prothrombin Time 28.4 #H Prothrombin Time Ratio 2.2 Red Blood Count 3.69 L Red Cell Distribution Width 23.3 H Sodium Level 136 White Blood Count 10.7 Medications Medications Current Medications Piperacillin Sod/ Tazobactam Sod (Zosyn 3.375gm/ 100 ml (Pmx)) 100 ml @ 200 mls /hr Q8 IVPB Last administered on 11/11/16 05:44; Admin Dose 200 MLS/HR; Start 11/09/16 at 06:00 Morphine Sulfate (morphine) 1 mg Q4H PRN IV PAIN Last administered on 03:35; Admin Dose 1 MG; Start 11/08/16 at 21:00 Acetaminophen (Tylenol Tab) 650 mg Q4H PRN PO PAIN AND OR ELEVATED TEMP Last administered on 11/09/16 09:13; Admin Dose 650 MG; Start 11/08/16 at 21:00 Alprazolam (Xanax) 0.25 mg Q6H PRN PO ANXIETY; Start 11/08/16 at 21:00 Atorvastatin Calcium (Lipitor) 10 mg HS PO Last administered on 11/10/16 21:34 ; Admin Dose 10 MG; Start 11/08/16 at 21:00 Benzonatate (Tessalon) 200 mg TID PO Last administered on 11/11/16 09:14; Admin Dose 200 MG; Start 11/08/16 at 21:00 Digoxin (Digoxin) 0.125 mg DAILY@13 PO Last administered on 11/10/16 13:04; Admin Dose 0.125 MG; Start 11/09/16 at 13:00 Diltiazem HCl (Cardizem Cd) 120 mg DAILY PO Last administered on 11/11/16 09: 15; Admin Dose 120 MG; Start 11/09/16 at 09:00 Docusate Sodium (Colace) 100 mg BID PRN PO CONSTIPATION Last administered on 09:13; Admin Dose 100 MG; Start 11/08/16 at 21:00 Furosemide (Lasix) 20 mg DAILY PO Last administered on 11/11/16 09:14; Admin Dose 20 MG; Start 11/09/16 at 09:00 Guaifenesin/ Codeine Phosphate (Robitussin Ac Liquid Cup) 5 ml Q4H PRN PO COUGH Last administered on 11/10/16 05:36; Admin Dose 5 ML; Start 11/08/16 at 21 :00 Lansoprazole (Prevacid) 30 mg DAILY@06 PO Last administered on 11/11/16 05:44 ; Admin Dose 30 MG; Start 11/09/16 at 06:00 Latanoprost (Xalatan) 1 drop HS BOTH EYES Last administered on 11/10/16 22:36 ; Admin Dose 1 DROP; Start 11/08/16 at 21:00 Morphine Sulfate (morphine) 2 mg Q4H PRN IV SEVERE PAIN LEVEL 7-10 Last administered on 11/11/16 09:29; Admin Dose 2 MG; Start 11/08/16 at 21:00 Warfarin Sodium (Coumadin) 5 mg DAILY@17 PO Last administered on 11/10/16 16: 14; Admin Dose 5 MG; Start 11/09/16 at 17:00; Status Future Hold Polyethylene Glycol (Miralax) 17 gm DAILY PRN PO CONSTIPATION; Start 11/08/16 at 21:00 Zolpidem Tartrate 5 mg 5 mg HS PRN PO INSOMNIA; Start 11/08/16 at 21:00 Potassium Chloride/Dextrose/ Sod Cl (D5-1/2ns + KCl 30 Meq) 1,000 ml @ 50 mls/ hr Q20H IV Last administered on 11/11/16 03:00; Admin Dose 50 MLS/HR; Start at 11:00 Ondansetron HCl (Zofran Inj) 4 mg Q6H PRN IV NAUSEA AND/OR VOMITING Last administered on 11/11/16 09:28; Admin Dose 4 MG; Start 11/09/16 at 21:00 BRISEYDA TURK NP Nov 11, 2016 13:14
[2016-11-11] MEDS: DIGOXIN 0.125 MG TAB PO SCH (13:43)
--- NOTE | 2016-11-11 17:24 | QN ---
Documentation Comment Date: 11/09/16 SUBJECTIVE: Minimal abdominal pain slowly improving but persisting. Min flatus. No BM. She denies any fevers or chills. Some nausea but no vomiting. No chest pain. No shortness of breath. No visual or neurologic changes that are acute. No cough. No dysuria. No vaginal discharge. PHYSICAL EXAMINATION: VITAL SIGNS: AVSS GENERAL: No acute distress, comfortable. HEENT: Pupils are equal, reactive. No scleral icterus. NECK: Supple, no crepitus, no JVD. PULMONARY: Normal respiratory effort. No wheezing. CARDIAC: S1, S2 present. ABDOMEN: Soft and tender in the lower quadrant. No rebound, no guarding, not rigid. EXTREMITIES: Minimal edema. VASCULAR: Capillary refill is 2 seconds. NEUROLOGIC: Alert, oriented, moves all 4 extremities grossly. LABORATORY DATA AND RADIOGRAPHIC: Noted ASSESSMENT AND PLAN: Lulu Gauthier is a 71-year-old female with multiple significant comorbidities. 1. Micro-perforated diverticulitis with stable hemodynamics which has probably sealed. -antibiotics -supportive care -npo -ivf -pain control -eventual laparoscopic resection of this site as outpt 2. 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 Adnexal lesions. -oncology f/u. . -?further imaging 3. Acute left lacunar infarct with right-sided weakness. Currently stable. -physical therapy. -medical optimization 4. Chronic atrial fibrillation. -medical optimization, rate control, and anticoagulation. 5. Anemia without evidence of acute blood loss. Continue close observation. 6. Leukocytosis secondary to above. Improving Thank you, CRYS CORCORAN MD Nov 11, 2016 17:24
--- NOTE | 2016-11-11 17:27 | PN ---
Date/Time of Note Date/Time of Note DATE: 11/11/16 TIME: 17:25 Assessment/Plan Lines/Catheters IV [facility] (from [facility] Peripheral IV Assessment/Plan Chief Complaint/Hosp Course 1. Micro-perforated diverticulitis with stable hemodynamics which has probably sealed. Improving -antibiotics -supportive care -clears and advance as tolerated and with improved bowel function -ivf -eventual laparoscopic resection of this site as outpt 2. 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 Adnexal lesions. -oncology f/u. . -?further imaging 3. Acute left lacunar infarct with right-sided weakness. Currently stable. -physical therapy. -medical optimization 4. Chronic atrial fibrillation. -medical optimization, rate control, and anticoagulation. 5. Anemia without evidence of acute blood loss. Continue close observation. 6. Leukocytosis secondary to above. Improved Thank you, Problems: Subjective 24 Hr Interval Summary Flatus and BM. Leukocytosis resolved. Feeling better. Minimal abdominal pain slowly improving but persisting. She denies any fevers or chills. Some nausea but no vomiting. No chest pain. No shortness of breath. No visual or neurologic changes that are acute. No cough. No dysuria. No vaginal discharge. Exam/Review of Systems Vital Signs Vitals Vital Signs Date Time Temp Pulse Resp B/P Pulse Ox O2 Delivery O2 Flow Rate FiO2 11/11/16 15:48 98.0 50 18 126/57 96 11/10/16 20:00 Room Air Intake and Output 11/10/16 11/10/16 11/11/16 15:00 23:00 07:00 Intake Total 100 ml 900 ml 900 ml Output Total 1100 ml Balance 100 ml 900 ml -200 ml Exam Free Text/Dictation GENERAL: No acute distress, comfortable. HEENT: Pupils are equal, reactive. No scleral icterus. NECK: Supple, no crepitus, no JVD. PULMONARY: Normal respiratory effort. No wheezing. CARDIAC: S1, S2 present. ABDOMEN: Soft and tender in the lower quadrant. No rebound, no guarding, not rigid. EXTREMITIES: Minimal edema. VASCULAR: Capillary refill is 2 seconds. NEUROLOGIC: Alert, oriented, moves all 4 extremities grossly. Results Result Diagram: 11/11/16 0525 11/11/16 0525 CRYS CORCORAN MD Nov 11, 2016 17:27
[2016-11-11] MEDS: ATORVASTATIN 10 MG TAB PO SCH (21:13)
[2016-11-11] MEDS: LATANOPROST 0.005% 2.5 ML OPH BOTH EYES SCH (21:14)
[2016-11-12] VITALS (12 sets, daily range): BP systolic 121–151; BP diastolic 61–82; PULSE 49–80; RESP 15–65
[2016-11-12] MEDS: LANSOPRAZOLE 30 MG CAP PO SCH (05:39)
[2016-11-12] MEDS: PIPER-TAZO 3.375 GM IV (PMX) 100 ML IVPB SCH ×3 (05:40→22:00)
[2016-11-12 06:23] LABS: BASOPHILS % 0.1 % (0.0-2.0); EOSINOPHILS # 0.2 10^3/ul (0.0-0.5); EOSINOPHILS % 2.2 % (0.0-7.0); HEMATOCRIT 29.7 % (37.0-47.0); HEMOGLOBIN 9.4 g/dl (12.0-16.0); LYMPHOCYTES # 2.9 10^3/ul (0.8-2.9); LYMPHOCYTES % 29.8 % (15.0-51.0); MEAN CORPUSCULAR HEMOGLOBIN 25.3 pg (29.0-33.0); MEAN CORPUSCULAR HGB CONC 31.6 g/dl (32.0-37.0); MEAN CORPUSCULAR VOLUME 80.2 fl (82.0-101.0); MEAN PLATELET VOLUME 8.7 fl (7.4-10.4); MONOCYTE # 1.2 10^3/ul (0.3-0.9); NEUTROPHIL # 5.4 10^3/ul (1.6-7.5); NEUTROPHILS % 55.9 % (39.0-77.0); PLATELET COUNT 468 10^3/UL (140-440); RED BLOOD COUNT 3.71 10^6/ul (4.20-5.40); UNCORRECTED WBC 9.7 10^3/ul (4.8-10.8); WHITE BLOOD COUNT 9.7 10^3/ul (4.8-10.8)
[2016-11-12 06:24] LABS: INR 3.14; PROTIME 32.7 Sec (12.2-14.2); PT RATIO 2.6
[2016-11-12 06:32] LABS: CONDITION 1; LH ANALYZER COMMENTS 1; NUCLEATED RED BLOOD CELLS # 0.2 10^3/ul (0.0-0.0)
[2016-11-12 06:42] LABS: CREATININE 0.91 mg/dl (0.44-1.00)
[2016-11-12 06:43] LABS: CALCIUM 8.6 mg/dl (8.4-10.2); MAGNESIUM 1.9 mg/dl (1.7-2.5); PHOSPHORUS 3.1 mg/dl (2.5-4.9)
--- NOTE | 2016-11-12 07:00 | PN ---
DATE: 11/11/2016 SUBJECTIVE: The patient is currently stable. She continues to have abdominal pain though controlle d with pain medications and improving. The patient remains n.p.o. No other events noted. The js ent did speak with Dr. Coulter and does not wish to pursue any kind of surgical procedures. OBJECTIVE: VITAL SIGNS: Blood pressure is 131/67, respiration 18, pulse 63, temperature 98.1. HEENT: Head is normocephalic. NECK: Supple. HEART: Regular rate. LUNGS: Show diminished breath sounds at base. ABDOMEN: Soft, positive tenderness to palpation on deep palpation to right upper and lower quadrant s. No rebound. EXTREMITIES: Negative for clubbing, cyanosis, no edema. DERMATOLOGIC: No rashes. MUSCULOSKELETAL EXAMINATION: No joint effusions. NEUROLOGIC: No focal deficits. MEDICATIONS: The patient's medications were reviewed. LABORATORY DATA: Shows a BMP within normal limits. White count ____.7, hemoglobin 9.2, hematocrit of 29.6, platelet count is 461. IMAGING: The patient's KUB showed no evidence of pneumoperitoneum. ASSESSMENT AND PLAN: 1. Acute diverticulitis with perforated sigmoid colon. The patient is currently receiving conserva tive therapy and is n.p.o. on intravenous fluids, receiving morphine for pain control. The patient has been seen by the general surgeon, Dr. Coulter. There is no immediate need for surgery at this t [facility]. Additionally, the patient does not wish to pursue any surgery. At this point, we will continu e to monitor. We will discuss with Dr. Coulter if the patient could be started on a clear liquid di et. 2. Acute left lacunar infarct with right-sided weakness. The patient is currently stable. Continu e physical therapy/occupational therapy. 3. Right blurry vision. Etiology secondary to cerebrovascular accident. The patient was previously evaluated by ophthalmology in outpatient setting. Continue to monitor. 4. Nonoliguric acute kidney injury. Etiology is hemodynamics. Renal function has improved. Contin ue to monitor. Continue supportive care, renally dose all meds, avoid nephrotoxins. 5. Chronic atrial fibrillation. Currently, rate controlled. Continue medical management. Continu e Coumadin. INR is at goal. 6. History of liposarcoma. The patient is status post resection and chemotherapy. There is a poss ibility of recurrence, as the patient's CT scan and MRI show an adnexal mass. Continue to monitor. 7. Neuropathy. Continue Neurontin. 8. Chronic pain syndrome. Continue current pain regimen. 9. Dyslipidemia. Continue statin therapy. 10. Anemia. Continue to monitor hemoglobin and hematocrit levels. 11. Anxiety disorder. Continue Xanax. 12. Gastrointestinal and deep venous thrombosis prophylaxis. Continue proton pump inhibitor and Co umadin. Dictated By: CRISTIANO ALVAREZ/AMADOU Conf#: [id number] DID#: [id number]
[2016-11-12] MEDS: DILTIAZEM (CD) 120 MG CAP PO SCH (08:16)
[2016-11-12] MEDS: BENZONATATE 100 MG CAP PO SCH ×3 (08:17→21:40)
[2016-11-12] MEDS: FUROSEMIDE 20 MG TAB PO SCH (08:17)
[2016-11-12] MEDS ORDERED: FUROSEMIDE 20 MG TAB PO SCH (09:00)
--- NOTE | 2016-11-12 10:53 | PN ---
DATE: 11/12/2016 SUBJECTIVE: The patient is complaining about chills this morning, although noted to be normothermic . The patient continues to have abdominal pain, but has been placed on a clear liquid diet and is t olerating. No other events noted. OBJECTIVE: VITAL SIGNS: Blood pressure is 115/67, respirations 18, pulse 71, temperature 97.7. HEENT: Head is normocephalic. NECK: Supple. HEART: Regular rate. LUNGS: Show diminished breath sounds at base. ABDOMEN: Soft, nontender to palpation. No rebound or guarding. EXTREMITIES: Negative for clubbing, cyanosis, trace edema. DERMATOLOGIC: No rash. MUSCULOSKELETAL: No joint effusions. NEUROLOGIC: No change in exam. MEDICATIONS: The patient's medications have been reviewed. LABORATORY DATA: Shows white count 9.7, hemoglobin 9.4, hematocrit 29.7, platelet count is 468 and BMP within normal limits. ASSESSMENT AND PLAN: 1. Acute diverticulitis with perforated sigmoid colon. The patient was seen by general surgery, Dr Vince Coulter who recommends at this point conservative management, possible outpatient laparoscopic res ection the perforated site. We will continue current treatment plan. Continue to advance diet. Co ntinue IV antibiotics and monitor. 2. Acute left lacunar infarct with right-sided weakness. The patient is currently stable. Continu e physical therapy and occupational therapy. 3. Right blurry vision. Etiology secondary to cerebrovascular accident. The patient was seen by o phthalmology outpatient setting, continue to monitor. 4. Chronic atrial fibrillation, currently rate controlled. Continue medical management. Continue to hold Coumadin as INR is supratherapeutic. 5. History of liposarcoma status post resection, chemotherapy. There is a possibility of recurrenc e. A CT scan shows adnexal mass. Per patient did not wish to pursue evaluation at this time. Will eventually need outpatient oncology evaluation. 6. Neuropathy. Continue Neurontin. 7. Chronic pain syndrome. Continue current pain regimen. 8. Dyslipidemia. Continue statin therapy. 9. Anemia. Continue to monitor hemoglobin and hematocrit levels. 10. Anxiety disorder. Continue Xanax. 11. Gastrointestinal and deep venous thrombosis prophylaxis. The patient is on proton pump inhibit or and Coumadin. Dictated By: CRISTIANO ALVAREZ/AMADOU Conf#: [id number] DID#: [id number]
[2016-11-12] MEDS ORDERED: FUROSEMIDE 20 MG TAB PO ONE (13:00)
[2016-11-12] MEDS: DIGOXIN 0.125 MG TAB PO SCH (13:09)
[2016-11-12] MEDS: morphine 2 MG INJ IV PRN ×2 (13:17→21:30)
[2016-11-12] MEDS: ONDANSETRON 4 MG INJ IV PRN (14:18)
--- NOTE | 2016-11-12 15:28 | PN ---
DATE: 11/12/2016 INFECTIOUS DISEASE PROGRESS NOTE SUBJECTIVE: No acute changes. The patient is alert, looks comfortable. Denies pain, discomfort. Per RN patient had been having chills earlier today, but overall no fevers. WBC 9.7, no shift, no bands. BUN 10, creatinine 0.91. ANTIMICROBIALS: Zosyn. PHYSICAL EXAMINATION: GENERAL: Fragile, elderly woman who is alert, in no distress. HEENT: Head atraumatic, normocephalic. Sclerae anicteric. Buccal mucosa pink. NECK: Supple, trachea midline. CHEST: Rise symmetrical. Breath sounds clear. HEART: S1, S2. ABDOMEN: Soft, bowel tones present. EXTREMITIES: Without cyanosis. ASSESSMENT: 1. Systemic inflammatory response syndrome. 2. Micro perforated diverticulitis, surgery follows, overall improving. 3. Status post urinary tract infection. 4. 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 5. History of cerebrovascular accident. 6. Chronic atrial fibrillation. PLAN: The patient remains stable, overall improving, tolerates clear liquid diet. White blood cell count tracing down. Continue present care, antibiotics. Follow surgical recommendations. Dictated By: GARRICK PARKINSON [employer] SCENE PHOTOGRAPHER for DAVID GERONIMO/AMADOU Conf#: [id number] DID#: [id number]
--- NOTE | 2016-11-12 19:00 | PN ---
Date/Time of Note Date/Time of Note DATE: 11/12/16 TIME: 18:58 Assessment/Plan Lines/Catheters IV Catheter Type (from [facility]): Peripheral IV Assessment/Plan Chief Complaint/Hosp Course 1. Micro-perforated diverticulitis with stable hemodynamics which has probably sealed. Improving -antibiotics -supportive care -advance as tolerated and with improved bowel function -ivf -eventual laparoscopic resection of this site as outpt 2. 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 Adnexal lesions. -oncology f/u. . -?further imaging 3. Acute left lacunar infarct with right-sided weakness. Currently stable. -physical therapy. -medical optimization 4. Chronic atrial fibrillation. -medical optimization, rate control, and anticoagulation. 5. Anemia without evidence of acute blood loss. Continue close observation. 6. Leukocytosis secondary to above. Improved Thank you, Problems: Subjective 24 Hr Interval Summary Flatus and BM. Leukocytosis resolved. Feeling better. Minimal abdominal pain slowly improving but persisting. She denies any fevers or chills. Some nausea but no vomiting. No chest pain. No shortness of breath. No visual or neurologic changes that are acute. No cough. No dysuria. No vaginal discharge. Exam/Review of Systems Vital Signs Vitals Vital Signs Date Time Temp Pulse Resp B/P Pulse Ox O2 Delivery O2 Flow Rate FiO2 11/12/16 16:39 49 11/12/16 15:41 97.9 18 138/65 93 11/10/16 20:00 Room Air Intake and Output 11/11/16 11/11/16 11/12/16 15:00 23:00 07:00 Intake Total 100 ml 1400 ml 1200 ml Output Total 550 ml Balance 100 ml 1400 ml 650 ml Exam Free Text/Dictation GENERAL: No acute distress, comfortable. HEENT: Pupils are equal, reactive. No scleral icterus. NECK: Supple, no crepitus, no JVD. PULMONARY: Normal respiratory effort. No wheezing. CARDIAC: S1, S2 present. ABDOMEN: Soft and tender in the lower quadrant. No rebound, no guarding, not rigid. EXTREMITIES: Minimal edema. VASCULAR: Capillary refill is 2 seconds. NEUROLOGIC: Alert, oriented, moves all 4 extremities grossly. Results Result Diagram: 11/12/16 0555 11/12/16 0555 CRYS CORCORAN MD Nov 12, 2016 19:00
--- NOTE | 2016-11-12 20:09 | PN ---
DATE: 11/12/2016 SUBJECTIVE: Discussed with the staff. Rhythm strip was reviewed. The patient remains in atrial fi brillation. Heart rate under good control. Denies any chest pain or pressure to me. She has remai jennifer in atrial fibrillation. Heart rate has been on the low side, in fact. MEDICATIONS: Reviewed. PHYSICAL EXAMINATION: VITAL SIGNS: Temperature 97.9, heart rate of 50, blood pressure 138/65, respiratory rate of 18, sat urating 93%. HEENT: Normocephalic. Status post facial trauma. EYES: Pupils are equal and round. NECK: Supple. No stridor. CARDIOVASCULAR: Irregularly irregular. Systolic murmur. PULMONARY: No wheezes anteriorly. GASTROINTESTINAL: Soft. Mildly tender to palpation. No rebound, no guarding. EXTREMITIES: Trivial edema. NEUROLOGIC: Awake, responds appropriately. PSYCHIATRIC: Appeared to be calm and pleasant. LABORATORY: WBC of 9.7, hemoglobin 9.4, platelets of 468. Sodium 139, potassium 4, BUN of 10, crea tinine 0.91, glucose of 102. Magnesium is 1.9. IMAGING: Chest x-ray done from yesterday shows slightly worse appearance in lung bases, cardiomegal y. ASSESSMENT AND PLAN: 1. Atrial fibrillation, appeared to be chronic. Heart rate under control and on the low side. 2. Perforated diverticulitis. 3. History of hypertension, good control now. 4. History of cerebrovascular accident. 5. History of deep venous thrombosis and pulmonary embolus. 6. Renal insufficiency. 7. Electrolyte abnormality, has been corrected. 8. History of liposarcoma. 9. Neuropathy. 10. Chronic pain. 11. Anemia. RECOMMENDATIONS: Coumadin is being adjusted per Internal Medicine. I will discontinue the digoxin given her relatively bradycardic episodes. Antibiotic is managed as per Internal Medicine as well a s ID's recommendation. Continue to monitor on telemetry. Dictated By: OSMIN PERES/AMADOU Conf#: [id number] DID#: [id number] CC: CRISTIANO JJ DO;*EndCC*
[2016-11-12] MEDS: ATORVASTATIN 10 MG TAB PO SCH (21:40)
[2016-11-12] MEDS: LATANOPROST 0.005% 2.5 ML OPH BOTH EYES SCH (21:43)
[2016-11-13] VITALS (14 sets, daily range): BP systolic 134–147; BP diastolic 61–71; PULSE 40–130; RESP 16–20
[2016-11-13] MEDS: LANSOPRAZOLE 30 MG CAP PO SCH (05:32)
[2016-11-13] MEDS: PIPER-TAZO 3.375 GM IV (PMX) 100 ML IVPB SCH ×3 (05:32→22:07)
[2016-11-13] MEDS: DILTIAZEM (CD) 120 MG CAP PO SCH (08:42)
[2016-11-13] MEDS: ONDANSETRON 4 MG INJ IV PRN (08:44)
[2016-11-13] MEDS: BENZONATATE 100 MG CAP PO SCH ×3 (08:44→20:31)
[2016-11-13 08:57] LABS: BASOPHILS % 0.2 % (0.0-2.0); EOSINOPHILS % 0.5 % (0.0-7.0); HEMATOCRIT 32.9 % (37.0-47.0); HEMOGLOBIN 10.3 g/dl (12.0-16.0); LYMPHOCYTES # 3.2 10^3/ul (0.8-2.9); LYMPHOCYTES % 33.4 % (15.0-51.0); MEAN CORPUSCULAR HEMOGLOBIN 24.7 pg (29.0-33.0); MEAN CORPUSCULAR HGB CONC 31.2 g/dl (32.0-37.0); MEAN CORPUSCULAR VOLUME 79.3 fl (82.0-101.0); MEAN PLATELET VOLUME 8.4 fl (7.4-10.4); MONOCYTES % 10.3 % (0.0-11.0); NEUTROPHIL # 5.4 10^3/ul (1.6-7.5); NEUTROPHILS % 55.6 % (39.0-77.0); PLATELET COUNT 506 10^3/UL (140-440); POTASSIUM 3.4 mmol/L (3.5-5.1); RED BLOOD COUNT 4.15 10^6/ul (4.20-5.40); RED CELL DISTRIBUTION WIDTH 23.6 % (11.5-14.5); UNCORRECTED WBC 9.7 10^3/ul (4.8-10.8); WHITE BLOOD COUNT 9.7 10^3/ul (4.8-10.8)
[2016-11-13 09:00] LABS: CREATININE 0.91 mg/dl (0.44-1.00)
[2016-11-13] MEDS ORDERED: FUROSEMIDE 40 MG TAB PO SCH (09:00)
[2016-11-13 09:01] LABS: CONDITION 1; LH ANALYZER COMMENTS 1; MAGNESIUM 1.8 mg/dl (1.7-2.5); PHOSPHORUS 3.2 mg/dl (2.5-4.9)
[2016-11-13 09:14] LABS: INR 2.48; PROTIME 27.1 Sec (12.2-14.2); PT RATIO 2.1
[2016-11-13] MEDS ORDERED: POTASSIUM CHLORIDE (SR) 20 MEQ TAB PO STA (09:17)
[2016-11-13] MEDS ORDERED: MAGNESIUM CHLORIDE (SR) 64 MG TAB PO ONE (09:30)
[2016-11-13] MEDS ORDERED: MAGNESIUM OXIDE 400 MG TAB PO ONE (10:00)
--- NOTE | 2016-11-13 10:41 | PN ---
DATE: 11/13/2016 SUBJECTIVE: The patient is clinically improving. Pain is still present but improving. The patient is tolerating clear liquid diet. No other acute events noted. OBJECTIVE: VITAL SIGNS: Blood pressure 130/64, respirations 20, pulse 78, temperature 98.2. INTAKE AND OUTPUT O's: The patient had 75 in with 1 liter out. HEENT: Head is normocephalic. NECK: Supple. HEART: Regular rate. LUNGS: Show diminished breath sounds at the base. ABDOMEN: Soft. There is tenderness to palpation to the left lower quadrant. No rebound or guardin g. EXTREMITIES: Negative for clubbing, cyanosis. No edema. DERMATOLOGIC: No rashes. MUSCULOSKELETAL: No joint effusions. NEUROLOGIC: No change in exam. MEDICATIONS: The patient's medications have been reviewed. LABORATORY DATA: Shows white count 9.7, hemoglobin 10.3, hematocrit of 32.9, platelet count 506. S odium 140, potassium 3.4, BUN 9, creatinine 0.91. ASSESSMENT AND PLAN: 1. Acute diverticulitis with perforated sigmoid colon. The patient is clinically improving. Arie nue conservative management. Continue to advance diet as tolerated. Continue pain control. Apprec iate evaluation by Dr. Coulter. No plans for surgery at this time. 2. Acute left lacunar infarct with right-sided weakness. Patient is stable. Continue physical the rapy and occupational therapy. Continue medical management. 3. Chronic atrial fibrillation, currently rate controlled. Continue Coumadin. INR is at goal. 4. History of liposarcoma status post resection and chemotherapy. The patient may have possible re currence. Will continue to monitor. Will followed up in outpatient setting by oncology. 5. Neuropathy. Continue Neurontin. 6. Chronic pain syndrome. Continue current pain regimen. 7. Dyslipidemia. Continue statin therapy. 8. Anemia. Continue to monitor hemoglobin and hematocrit levels. 9. Anxiety disorder. Continue Xanax. 10. GI and deep venous thrombosis prophylaxis. Continue proton pump inhibitor and Coumadin. Dictated By: CRISTIANO ALVAREZ/AMADOU Conf#: [id number] DID#: [id number]
[2016-11-13] MEDS: morphine 2 MG INJ IV PRN ×2 (12:24→16:30)
--- NOTE | 2016-11-13 12:38 | CONS ---
Date/Time of Note Date/Time of Note DATE: 11/13/16 TIME: 12:37 Assessment/Plan Assessment/Plan Chief Complaint/Hosp Course SUBJECTIVE: No acute changes. The patient is alert, looks comfortable. Denies pain, discomfort. ANTIMICROBIALS: Zosyn. PHYSICAL EXAMINATION: GENERAL: Fragile, elderly woman who is alert, in no distress. HEENT: Head atraumatic, normocephalic. Sclerae anicteric. Buccal mucosa pink. NECK: Supple, trachea midline. CHEST: Rise symmetrical. Breath sounds clear. HEART: S1, S2. ABDOMEN: Soft, bowel tones present. EXTREMITIES: Without cyanosis. ASSESSMENT: 1. Systemic inflammatory response syndrome. 2. Micro perforated diverticulitis, surgery follows, overall improving. 3. Status post urinary tract infection. 4. 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 5. History of cerebrovascular accident. 6. Chronic atrial fibrillation. PLAN: Continues to improve. Continue present care, antibiotics. Follow surgical recommendations. DW staff Problems: Consultation Date/Type/Reason Admit Date/Time Nov 08, 2016 at 19:30 Initial Consult Date Type of Consultation: ID Exam/Review of Systems Vital Signs Vitals Vital Signs Date Time Temp Pulse Resp B/P Pulse Ox O2 Delivery O2 Flow Rate FiO2 11/13/16 12:05 74 11/13/16 11:24 98.5 20 147/68 95 11/10/16 20:00 Room Air Intake and Output 11/12/16 11/12/16 11/13/16 15:00 23:00 07:00 Intake Total 175 ml 600 ml 100 ml Output Total 700 ml 400 ml Balance 175 ml -100 ml -300 ml Results Result Diagram: 11/13/16 0835 11/13/16 0835 Results 24 hrs Laboratory Tests Test 11/13/16 08:35 Anion Gap 15 Basophils # 0.0 Basophils % 0.2 Blood Morphology Comment Blood Urea Nitrogen 9 Calcium Level 9.0 Carbon Dioxide Level 25 Chloride Level 103 Creatinine 0.91 Eosinophils # 0.0 Eosinophils % 0.5 Glucose Level 91 Hematocrit 32.9 L Hemoglobin 10.3 L INR International Normalized Ratio 2.48 Lymphocytes # 3.2 H Lymphocytes % 33.4 Magnesium Level 1.8 Mean Corpuscular Hemoglobin 24.7 L Mean Corpuscular Hemoglobin Concent 31.2 L Mean Corpuscular Volume 79.3 L Mean Platelet Volume 8.4 Monocytes # 1.0 H Monocytes % 10.3 Neutrophils # 5.4 Neutrophils % 55.6 Nucleated Red Blood Cells # 0.0 Nucleated Red Blood Cells % 0.0 Phosphorus Level 3.2 Platelet Count 506 H Potassium Level 3.4 L Prothrombin Time 27.1 H Prothrombin Time Ratio 2.1 Red Blood Count 4.15 L Red Cell Distribution Width 23.6 H Sodium Level 140 White Blood Count 9.7 Medications Medications Current Medications Piperacillin Sod/ Tazobactam Sod (Zosyn 3.375gm/ 100 ml (Pmx)) 100 ml @ 200 mls /hr Q8 IVPB Last administered on 11/13/16 05:32; Admin Dose 200 MLS/HR; Start 11/09/16 at 06:00 Morphine Sulfate (morphine) 1 mg Q4H PRN IV PAIN Last administered on 03:35; Admin Dose 1 MG; Start 11/08/16 at 21:00 Acetaminophen (Tylenol Tab) 650 mg Q4H PRN PO PAIN AND OR ELEVATED TEMP Last administered on 11/09/16 09:13; Admin Dose 650 MG; Start 11/08/16 at 21:00 Alprazolam (Xanax) 0.25 mg Q6H PRN PO ANXIETY; Start 11/08/16 at 21:00 Atorvastatin Calcium (Lipitor) 10 mg HS PO Last administered on 11/12/16 21:40 ; Admin Dose 10 MG; Start 11/08/16 at 21:00 Benzonatate (Tessalon) 200 mg TID PO Last administered on 11/13/16 08:44; Admin Dose 200 MG; Start 11/08/16 at 21:00 Diltiazem HCl (Cardizem Cd) 120 mg DAILY PO Last administered on 11/13/16 08: 42; Admin Dose 120 MG; Start 11/09/16 at 09:00 Docusate Sodium (Colace) 100 mg BID PRN PO CONSTIPATION Last administered on 09:13; Admin Dose 100 MG; Start 11/08/16 at 21:00 Guaifenesin/ Codeine Phosphate (Robitussin Ac Liquid Cup) 5 ml Q4H PRN PO COUGH Last administered on 11/10/16 05:36; Admin Dose 5 ML; Start 11/08/16 at 21 :00 Lansoprazole (Prevacid) 30 mg DAILY@06 PO Last administered on 11/13/16 05:32 ; Admin Dose 30 MG; Start 11/09/16 at 06:00 Latanoprost (Xalatan) 1 drop HS BOTH EYES Last administered on 11/12/16 21:43 ; Admin Dose 1 DROP; Start 11/08/16 at 21:00 Morphine Sulfate (morphine) 2 mg Q4H PRN IV SEVERE PAIN LEVEL 7-10 Last administered on 11/13/16 12:24; Admin Dose 2 MG; Start 11/08/16 at 21:00 Warfarin Sodium (Coumadin) 5 mg DAILY@17 PO Last administered on 11/10/16 16: 14; Admin Dose 5 MG; Start 11/09/16 at 17:00; Status Future hold Polyethylene Glycol (Miralax) 17 gm DAILY PRN PO CONSTIPATION; Start 11/08/16 at 21:00 Zolpidem Tartrate (Ambien) 5 mg HS PRN PO INSOMNIA; Start 11/08/16 at 21:00 Ondansetron HCl (Zofran Inj) 4 mg Q6H PRN IV NAUSEA AND/OR VOMITING Last administered on 11/13/16 08:44; Admin Dose 4 MG; Start 11/09/16 at 21:00 Furosemide (Lasix) 40 mg DAILY PO Last administered on 11/13/16 08:43; Admin Dose 40 MG; Start 11/13/16 at 09:00 GARRICK PARKINSON NP Nov 13, 2016 12:38
--- NOTE | 2016-11-13 16:27 | PN ---
DATE: 11/13/2016 CARDIOLOGY FOLLOWUP SUBJECTIVE: Discussed with the staff. Rhythm strip was reviewed. The patient remains in atrial fi brillation. Heart rate is mostly on the slow side, 50 to 60 but no long pauses noted. No syncope, no presyncope, no palpitation. Complains of mild abdominal discomfort and poor appetite. No chest pain or pressure. No bleeding. MEDICATIONS: Reviewed, which include: 1. Lasix 40 mg daily. 2. Digoxin has been discontinued. 3. Coumadin is still on hold. 4. Cardizem-CD. 5. Xanax. 6. Lipitor. PHYSICAL EXAMINATION: VITAL SIGNS: Temperature 98.6, heart rate of 72, blood pressure 142/62, respiratory rate of 20, sat urating 94%. HEENT: Normocephalic, status post facial trauma. CARDIOVASCULAR: Irregularly irregular. Systolic murmur. PULMONARY: With no wheezes anteriorly. GASTROINTESTINAL: Soft, mild tenderness to palpation. No rebound or guarding. EXTREMITIES: With trivial lower extremity edema. NEUROLOGIC: Awake, alert. PSYCHIATRIC: Calm and pleasant. LABORATORY: WBC of 9.7, hemoglobin 10.3, platelets of 506. INR is 2.48. Sodium 140, potassium 3.4 , BUN of 9, creatinine 0.91, glucose of 91. Magnesium is 1.8. ASSESSMENT AND PLAN: 1. Atrial fibrillation. Heart rate currently on the slow side. 2. Hypertension. 3. Status post cerebrovascular accident. 4. Diverticulitis and perforation. 5. History of liposarcoma, status post resection and radiation. 6. Neuropathy. 7. Anemia. RECOMMENDATIONS: Coumadin is being adjusted as per internal medicine. We will continue with the Ca rdizem. Digoxin has been discontinued. INR will be checked and adjusted. Continue to monitor on t elemetry. Followup with GI and surgery recommendations. Dictated By: OSMIN PERES/AMADOU Conf#: [id number] DID#: [id number] CC: CRISTIANO JJ DO;*EndCC*
[2016-11-13] MEDS: WARFARIN 5 MG TAB PO SCH (17:49)
[2016-11-13] MEDS: LATANOPROST 0.005% 2.5 ML OPH BOTH EYES SCH (20:31)
[2016-11-13] MEDS: ATORVASTATIN 10 MG TAB PO SCH (20:31)
--- NOTE | 2016-11-13 20:39 | PN ---
Date/Time of Note Date/Time of Note DATE: 11/13/16 TIME: 20:38 Assessment/Plan Lines/Catheters IV Catheter Type (from [facility]): Peripheral IV Assessment/Plan Chief Complaint/Hosp Course 1. Micro-perforated diverticulitis with stable hemodynamics which has probably sealed. Improving -antibiotics -supportive care -advance as tolerated and with improved bowel function -ivf -eventual laparoscopic resection of this site as outpt 2. 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 Adnexal lesions. -oncology f/u. . -?further imaging 3. Acute left lacunar infarct with right-sided weakness. Currently stable. -physical therapy. -medical optimization 4. Chronic atrial fibrillation. -medical optimization, rate control, and anticoagulation. 5. Anemia without evidence of acute blood loss. Continue close observation. 6. Leukocytosis secondary to above. Resolved Thank you, Problems: Subjective 24 Hr Interval Summary Flatus and BM. Feeling better. Minimal abdominal pain slowly improving but persisting. She denies any fevers or chills. Some nausea but no vomiting. No chest pain. No shortness of breath. No visual or neurologic changes that are acute. No cough. No dysuria. No vaginal discharge. Exam/Review of Systems Vital Signs Vitals Vital Signs Date Time Temp Pulse Resp B/P Pulse Ox O2 Delivery O2 Flow Rate FiO2 11/13/16 20:07 98 11/13/16 15:05 98.6 20 142/62 94 11/10/16 20:00 Room Air Intake and Output 11/12/16 11/12/16 11/13/16 15:00 23:00 07:00 Intake Total 175 ml 600 ml 100 ml Output Total 700 ml 400 ml Balance 175 ml -100 ml -300 ml Exam Free Text/Dictation GENERAL: No acute distress, comfortable. HEENT: Pupils are equal, reactive. No scleral icterus. NECK: Supple, no crepitus, no JVD. PULMONARY: Normal respiratory effort. No wheezing. CARDIAC: S1, S2 present. ABDOMEN: Soft and tender in the lower quadrant. No rebound, no guarding, not rigid. EXTREMITIES: Minimal edema. VASCULAR: Capillary refill is 2 seconds. NEUROLOGIC: Alert, oriented, moves all 4 extremities grossly. Results Result Diagram: 11/13/16 0835 11/13/16 0835 CRYS CORCORAN MD Nov 13, 2016 20:39
[2016-11-14] VITALS (11 sets, daily range): BP systolic 118–163; BP diastolic 54–72; PULSE 59–90; RESP 17–18
[2016-11-14] MEDS: LANSOPRAZOLE 30 MG CAP PO SCH (05:22)
[2016-11-14] MEDS: morphine 2 MG INJ IV PRN ×3 (05:22→13:47)
[2016-11-14] MEDS: PIPER-TAZO 3.375 GM IV (PMX) 100 ML IVPB SCH ×3 (05:22→20:58)
[2016-11-14 07:05] LABS: EOSINOPHILS # 0.1 10^3/ul (0.0-0.5); EOSINOPHILS % 0.8 % (0.0-7.0); LYMPHOCYTES # 2.6 10^3/ul (0.8-2.9); LYMPHOCYTES % 20.3 % (15.0-51.0); MEAN CORPUSCULAR HEMOGLOBIN 24.9 pg (29.0-33.0); MEAN CORPUSCULAR HGB CONC 31.3 g/dl (32.0-37.0); MEAN CORPUSCULAR VOLUME 79.5 fl (82.0-101.0); MEAN PLATELET VOLUME 8.7 fl (7.4-10.4); MONOCYTE # 1.1 10^3/ul (0.3-0.9); MONOCYTES % 8.6 % (0.0-11.0); NEUTROPHILS % 70.3 % (39.0-77.0); PLATELET COUNT 477 10^3/UL (140-440); RED BLOOD COUNT 4.03 10^6/ul (4.20-5.40); RED CELL DISTRIBUTION WIDTH 23.8 % (11.5-14.5); UNCORRECTED WBC 12.8 10^3/ul (4.8-10.8); WHITE BLOOD COUNT 12.8 10^3/ul (4.8-10.8)
[2016-11-14 07:12] LABS: CONDITION 1; LH ANALYZER COMMENTS 1
[2016-11-14 07:17] LABS: POTASSIUM 3.6 mmol/L (3.5-5.1)
[2016-11-14 07:19] LABS: CREATININE 0.97 mg/dl (0.44-1.00)
[2016-11-14 07:20] LABS: CALCIUM 8.8 mg/dl (8.4-10.2)
[2016-11-14 07:21] LABS: MAGNESIUM 1.9 mg/dl (1.7-2.5)
[2016-11-14 07:21] LABS: INR 2.57; PROTIME 27.9 Sec (12.2-14.2); PT RATIO 2.2
[2016-11-14] MEDS: BENZONATATE 100 MG CAP PO SCH ×3 (08:37→20:58)
[2016-11-14] MEDS: LISINOPRIL 10 MG TAB PO SCH (08:37)
[2016-11-14] MEDS: DILTIAZEM (CD) 120 MG CAP PO SCH (08:38)
--- NOTE | 2016-11-14 09:03 | PN ---
DATE: 11/14/2016 SUBJECTIVE: The patient is currently complaining of abdominal pain in the left lower quadrant. The patient was able to tolerate p.o.'s yesterday. No other events noted. No hemoptysis, hematemesis. OBJECTIVE: VITAL SIGNS: Blood pressure is 156/60, respirations 18, pulse 78, temperature 98.1. HEENT: Head is normocephalic. NECK: Supple. HEART: Regular rate. LUNGS: Show diminished breath sounds at the base. ABDOMEN: Soft, positive tenderness to palpation of the left lower quadrant. Positive voluntary gua rding. No rebound. DERMATOLOGIC: No rashes. MUSCULOSKELETAL: No joint effusions. NEUROLOGIC: No focal deficits. LABORATORY DATA: Shows a BMP within normal limits. White count 12.8, hemoglobin 10.0, hematocrit 3 2.0, platelet count is 477. ASSESSMENT AND PLAN: 1. Acute diverticulitis with a perforated sigmoid colon. The patient continues to have abdominal p ain controlled with pain medications. The patient is hemodynamically stable. No plan for intervent ion at this time. We will follow up with general surgeon, Dr. Coulter, for further recommendations. 2. Acute lacunar infarct, right-sided weakness. The patient is currently stable. Continue PT, OT. 3. Chronic atrial fibrillation, rate controlled. The patient's INR at goal. Continue Coumadin. 4. Hypertension. Blood pressure is elevated in part due to underlying pain. Continue pain regimen . Continue current blood pressure regimen. Adjust medications as needed. 5. History of liposarcoma status post resection chemotherapy. The patient may have underlying recu rrence. We will continue to monitor. Plan for outpatient oncology followup. 6. Neuropathy. Continue Neurontin. 7. Dyslipidemia. Continue statin therapy. 8. Anemia. Continue to monitor hemoglobin and hematocrit levels. 9. Anxiety disorder. Continue Xanax. 10. Gastrointestinal and deep venous thrombosis prophylaxis. Continue proton pump inhibitor and Co umadin. Dictated By: CRISTIANO ALVAREZ/AMADOU Conf#: [id number] DID#: [id number]
[2016-11-14] MEDS: FUROSEMIDE 20 MG TAB PO SCH (09:32)
--- NOTE | 2016-11-14 10:13 | PN ---
DATE: 11/14/2016 CARDIOLOGY FOLLOWUP SUBJECTIVE: Discussed with the staff. Rhythm strip was reviewed. The patient remains in atrial fi brillation. Heart rate on the low side but stable. Still complains of abdominal discomfort. No ch est pain or pressure. No palpitation. No bleeding. MEDICATIONS: Reviewed as per medical reconciliation, personally reviewed. PHYSICAL EXAMINATION: VITAL SIGNS: Temperature 98.1, heart rate of 71, blood pressure 150/60, respiration rate of 18, sat urating 94%. HEENT: Normocephalic, atraumatic. Pupils are equal. CARDIOVASCULAR: Irregularly irregular. Systolic murmur. PULMONARY: With no wheezes anteriorly. GASTROINTESTINAL: Soft, mild tenderness to palpation in the lower abdomen. No rebound or guarding. EXTREMITIES: With trivial lower extremity edema. NEUROLOGIC: Awake and alert. PSYCHIATRIC: Depressed mood, otherwise pleasant. LABORATORY: WBC of 12.8, hemoglobin 10.0 placement 477, sodium 141, potassium 3.6, BUN of 10, creat inine 0.97, glucose of 96. INR is 2.57. ASSESSMENT AND PLAN: 1. Atrial fibrillation, heart rate under good control. INR is therapeutic. 2. Micro perforated diverticulitis on antibiotic. 3. History of liposarcoma status post resection and radiation. 4. History of cerebrovascular accident. 5. Hypertension, under control. 6. Anemia, currently stable. RECOMMENDATIONS: We will continue with the current cardiac care. Antibiotic as per internal medici ne. I will start her on the low dose of FRANCIA inhibitor as well to control her blood pressure better. Follow up with surgery recommendations. Dictated By: OSMIN PERES/AMADOU Conf#: [id number] DID#: [id number]
[2016-11-14] MEDS ORDERED: WARFARIN 1 MG TAB PO SCH (17:00)
--- NOTE | 2016-11-14 17:08 | PN ---
Date/Time of Note Date/Time of Note DATE: 11/14/16 TIME: 17:07 Assessment/Plan Lines/Catheters IV Catheter Type (from [facility]): Saline Lock Assessment/Plan Chief Complaint/Hosp Course 1. Micro-perforated diverticulitis with stable hemodynamics which has probably sealed. Leukocytosis again. -abdominal series -antibiotics -supportive care -advance as tolerated and with improved bowel function -ivf -eventual laparoscopic resection of this site as outpt 2. 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 Adnexal lesions. -oncology f/u. . -?further imaging 3. Acute left lacunar infarct with right-sided weakness. Currently stable. -physical therapy. -medical optimization 4. Chronic atrial fibrillation. -medical optimization, rate control, and anticoagulation. 5. Anemia without evidence of acute blood loss. Continue close observation. 6. Leukocytosis secondary to above. -as above Thank you, Problems: Subjective 24 Hr Interval Summary Leukocytosis. Episode of pain today but improved now. Flatus and BM. She denies any fevers or chills. Some nausea but no vomiting. No chest pain. No shortness of breath. No visual or neurologic changes that are acute. No cough. No dysuria. No vaginal discharge. Exam/Review of Systems Vital Signs Vitals Vital Signs Date Time Temp Pulse Resp B/P Pulse Ox O2 Delivery O2 Flow Rate FiO2 11/14/16 16:02 59 11/14/16 15:35 98.1 18 118/54 96 11/10/16 20:00 Room Air Intake and Output 11/13/16 11/13/16 11/14/16 15:00 23:00 07:00 Intake Total 500 ml 220 ml Output Total 300 ml Balance 500 ml -80 ml Exam Free Text/Dictation GENERAL: No acute distress, comfortable. HEENT: Pupils are equal, reactive. No scleral icterus. NECK: Supple, no crepitus, no JVD. PULMONARY: Normal respiratory effort. No wheezing. CARDIAC: S1, S2 present. ABDOMEN: Soft and tender in the lower quadrant. No rebound, no guarding, not rigid. EXTREMITIES: Minimal edema. VASCULAR: Capillary refill is 2 seconds. NEUROLOGIC: Alert, oriented, moves all 4 extremities grossly. Results Result Diagram: 11/14/16 0610 11/14/16 0610 CRYS CORCORAN MD Nov 14, 2016 17:08
--- NOTE | 2016-11-14 18:46 | RADRPT ---
PROCEDURE: XR chest and abdomen. CLINICAL INDICATION: Abdominal pain TECHNIQUE: AP chest and 2 AP abdomen x-rays, supine and upright. COMPARISON: Chest x-ray 11/11/2016. Abdominal series 11/10/2016 FINDINGS: Bilateral lower lobe consolidation is similar to the prior study likely atelectasis. Cardiac silhoue tte enlargement is again seen. There is no evidence for free air below the diaphragm. The bowel gas pattern is normal. There is no evidence of obstruction. There are no abnormal calcific ations overlying the urinary tracts. Severe scoliosis, is the left is again noted. RPTAT:HJJR IMPRESSION: 1. Stable cardiomegaly and bilateral lower lobe consolidation likely atelectasis unchanged from 08/2017. 2. Nonspecific bowel gas pattern without evidence of acute intra-abdominal pathology, stable as com pared to 11/10/2016. 3. Severe levoscoliosis of the lumbar spine again noted. Physician Reymundo Date Time Electronically viewed and signed by Physician Reymundo on 11/14/2016 18:46 JR/
--- NOTE | 2016-11-14 20:21 | CONS ---
Date/Time of Note Date/Time of Note DATE: 11/14/16 TIME: 10:19 Assessment/Plan Assessment/Plan Chief Complaint/Hosp Course SUBJECTIVE: No acute changes. The patient is alert, c/o abdominal distention and increased pain, looks comfortable. No fevers ANTIMICROBIALS: Zosyn. PHYSICAL EXAMINATION: GENERAL: Fragile, elderly woman who is alert, in no distress. HEENT: Head atraumatic, normocephalic. Sclerae anicteric. Buccal mucosa pink. NECK: Supple, trachea midline. CHEST: Rise symmetrical. Breath sounds clear. HEART: S1, S2. ABDOMEN: Distended, soft, bowel tones present. EXTREMITIES: Without cyanosis. ASSESSMENT: 1. Systemic inflammatory response syndrome. 2. Micro perforated diverticulitis, surgery follows. 3. Status post urinary tract infection. 4. 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 5. History of cerebrovascular accident. 6. Chronic atrial fibrillation. PLAN: Clinically unchanged, with increased leukocytosis, no fevers, no dysuria. Continue antibiotics. Follow surgical recommendations. DW patient Problems: Consultation Date/Type/Reason Admit Date/Time Nov 08, 2016 at 19:30 Type of Consultation: ID Exam/Review of Systems Vital Signs Vitals Vital Signs Date Time Temp Pulse Resp B/P Pulse Ox O2 Delivery O2 Flow Rate FiO2 11/14/16 20:03 76 11/14/16 15:35 98.1 18 118/54 96 11/10/16 20:00 Room Air Intake and Output 11/13/16 11/13/16 11/14/16 15:00 23:00 07:00 Intake Total 500 ml 220 ml Output Total 300 ml Balance 500 ml -80 ml Results Result Diagram: 11/14/16 0610 11/14/16 0610 Results 24 hrs Laboratory Tests Test 11/14/16 06:00 11/14/16 06:10 INR International Normalized Ratio 2.57 Prothrombin Time 27.9 H Prothrombin Time Ratio 2.2 Anion Gap 15 Basophils # 0.0 Basophils % 0.0 Blood Morphology Comment Blood Urea Nitrogen 10 Calcium Level 8.8 Carbon Dioxide Level 25 Chloride Level 105 Creatinine 0.97 Eosinophils # 0.1 Eosinophils % 0.8 Glucose Level 96 Hematocrit 32.0 L Hemoglobin 10.0 L Lymphocytes # 2.6 Lymphocytes % 20.3 Magnesium Level 1.9 Mean Corpuscular Hemoglobin 24.9 L Mean Corpuscular Hemoglobin Concent 31.3 L Mean Corpuscular Volume 79.5 L Mean Platelet Volume 8.7 Monocytes # 1.1 H Monocytes % 8.6 Neutrophils # 9.0 H Neutrophils % 70.3 Nucleated Red Blood Cells # 0.0 Nucleated Red Blood Cells % 0.0 Phosphorus Level 3.0 Platelet Count 477 H Potassium Level 3.6 Red Blood Count 4.03 L Red Cell Distribution Width 23.8 H Sodium Level 141 White Blood Count 12.8 #H Medications Medications Current Medications Piperacillin Sod/ Tazobactam Sod (Zosyn 3.375gm/ 100 ml (Pmx)) 100 ml @ 200 mls /hr Q8 IVPB Last administered on 11/14/16 13:47; Admin Dose 200 MLS/HR; Start 11/09/16 at 06:00 Morphine Sulfate (morphine) 1 mg Q4H PRN IV PAIN Last administered on 03:35; Admin Dose 1 MG; Start 11/08/16 at 21:00 Acetaminophen (Tylenol Tab) 650 mg Q4H PRN PO PAIN AND OR ELEVATED TEMP Last administered on 11/09/16 09:13; Admin Dose 650 MG; Start 11/08/16 at 21:00 Alprazolam (Xanax) 0.25 mg Q6H PRN PO ANXIETY; Start 11/08/16 at 21:00 Atorvastatin Calcium (Lipitor) 10 mg HS PO Last administered on 11/13/16 20:31 ; Admin Dose 10 MG; Start 11/08/16 at 21:00 Benzonatate (Tessalon) 200 mg TID PO Last administered on 11/14/16 13:47; Admin Dose 200 MG; Start 11/08/16 at 21:00 Diltiazem HCl (Cardizem Cd) 120 mg DAILY PO Last administered on 11/14/16 08: 38; Admin Dose 120 MG; Start 11/09/16 at 09:00 Docusate Sodium (Colace) 100 mg BID PRN PO CONSTIPATION Last administered on 09:13; Admin Dose 100 MG; Start 11/08/16 at 21:00 Guaifenesin/ Codeine Phosphate (Robitussin Ac Liquid Cup) 5 ml Q4H PRN PO COUGH Last administered on 11/10/16 05:36; Admin Dose 5 ML; Start 11/08/16 at 21 :00 Lansoprazole (Prevacid) 30 mg DAILY@06 PO Last administered on 11/14/16 05:22 ; Admin Dose 30 MG; Start 11/09/16 at 06:00 Latanoprost (Xalatan) 1 drop HS BOTH EYES Last administered on 11/13/16 20:31 ; Admin Dose 1 DROP; Start 11/08/16 at 21:00 Morphine Sulfate (morphine) 2 mg Q4H PRN IV SEVERE PAIN LEVEL 7-10 Last administered on 11/14/16 13:47; Admin Dose 2 MG; Start 11/08/16 at 21:00 Polyethylene Glycol (Miralax) 17 gm DAILY PRN PO CONSTIPATION; Start 11/08/16 at 21:00 Zolpidem Tartrate (Ambien) 5 mg HS PRN PO INSOMNIA; Start 11/08/16 at 21:00 Ondansetron HCl (Zofran Inj) 4 mg Q6H PRN IV NAUSEA AND/OR VOMITING Last administered on 11/13/16 08:44; Admin Dose 4 MG; Start 11/09/16 at 21:00 Lisinopril (Zestril) 10 mg DAILY PO Last administered on 11/14/16 08:37; Admin Dose 10 MG; Start 11/14/16 at 09:00 Warfarin Sodium (Coumadin) 1 mg DAILY@17 PO Last administered on 11/14/16 17: 28; Admin Dose 1 MG; Start 11/14/16 at 17:00 Furosemide (Lasix) 20 mg DAILY PO Last administered on 11/14/16 09:32; Admin Dose 20 MG; Start 11/14/16 at 09:00 GARRICK PARKINSON NP Nov 14, 2016 20:21
[2016-11-14] MEDS: ATORVASTATIN 10 MG TAB PO SCH (20:58)
[2016-11-14] MEDS: LATANOPROST 0.005% 2.5 ML OPH BOTH EYES SCH (21:06)
[2016-11-15] VITALS (8 sets, daily range): BP systolic 122–155; BP diastolic 57–83; PULSE 52–81; RESP 18–19
[2016-11-15] MEDS: PIPER-TAZO 3.375 GM IV (PMX) 100 ML IVPB SCH ×2 (05:20→13:11)
[2016-11-15] MEDS: LANSOPRAZOLE 30 MG CAP PO SCH (05:20)
[2016-11-15 06:39] LABS: BASOPHILS % 0.1 % (0.0-2.0); EOSINOPHILS # 0.2 10^3/ul (0.0-0.5); HEMATOCRIT 30.9 % (37.0-47.0); HEMOGLOBIN 9.7 g/dl (12.0-16.0); LYMPHOCYTES # 1.8 10^3/ul (0.8-2.9); LYMPHOCYTES % 18.1 % (15.0-51.0); MEAN CORPUSCULAR HEMOGLOBIN 25.3 pg (29.0-33.0); MEAN CORPUSCULAR HGB CONC 31.5 g/dl (32.0-37.0); MEAN CORPUSCULAR VOLUME 80.3 fl (82.0-101.0); MEAN PLATELET VOLUME 8.5 fl (7.4-10.4); MONOCYTE # 1.5 10^3/ul (0.3-0.9); MONOCYTES % 14.4 % (0.0-11.0); NEUTROPHIL # 6.7 10^3/ul (1.6-7.5); NEUTROPHILS % 65.4 % (39.0-77.0); PLATELET COUNT 483 10^3/UL (140-440); RED BLOOD COUNT 3.84 10^6/ul (4.20-5.40); RED CELL DISTRIBUTION WIDTH 23.6 % (11.5-14.5); UNCORRECTED WBC 10.2 10^3/ul (4.8-10.8); WHITE BLOOD COUNT 10.2 10^3/ul (4.8-10.8)
[2016-11-15 06:42] LABS: INR 3.52; PROTIME 35.8 Sec (12.2-14.2); PT RATIO 2.8
[2016-11-15 07:00] LABS: CONDITION 1; LH ANALYZER COMMENTS 1; NUCLEATED RED BLOOD CELLS # 0.2 10^3/ul (0.0-0.0)
--- NOTE | 2016-11-15 08:25 | PN ---
DATE: 11/15/2016 CARDIOLOGY FOLLOWUP PROGRESS NOTE SUBJECTIVE: Discussed with the staff. Rhythm strip was reviewed. The patient remains in atrial fi brillation. Heart rate has been on the low side, but overall stable. No chest pain or pressure. S he has abdominal pain, but is slightly improved. MEDICATIONS: Reviewed as per medical reconciliation sheet which was personally reviewed. PHYSICAL EXAMINATION: VITAL SIGNS: Temperature 98.0, heart rate of 56, blood pressure of 139/62, respiratory rate of 18, saturating 98%. HEENT: Normocephalic, atraumatic. Pupils are equal. CARDIOVASCULAR: Irregularly irregular. Systolic murmur. PULMONARY: With no wheezes anteriorly. GASTROINTESTINAL: Soft, mild tenderness to palpation. EXTREMITIES: With positive lower extremity edema. NEUROLOGIC: Awake, responds appropriately. PSYCHIATRIC: Appears to be calm. SKIN: There have been no active bleeding sites old ecchymosis from the previous fall noted. LABORATORY: Showed WBC of 10.2, hemoglobin 9.8, platelets of 483. INR is 3.5. Abdominal x-ray don e yesterday shows stable cardiomegaly. Bilateral lower lobe consolidations, likely atelectasis, unc hanged, nonspecific bowel gas pattern. ASSESSMENT AND PLAN: 1. Atrial fibrillation, currently heart rate controlled, on anticoagulation. 2. History of cerebrovascular accident. 3. Microperforation of the diverticulum, currently on antibiotics. 4. History of liposarcoma status post resection and radiation. 5. Hypertension, under good control. 6. Anemia appeared to be stable. RECOMMENDATIONS: Coumadin is being adjusted. Continue with the statins. Blood pressure currently stable. Heart rate is currently under good control. We will continue with the current rate. Antib iotic as per ID's recommendation. Dictated By: OSMIN AGUIRRE MD AV/AMADOU Conf#: [id number] DID#: [id number] CC: CRISTIANO JJ DO;*EndCC*
[2016-11-15] MEDS: BENZONATATE 100 MG CAP PO SCH ×2 (08:43→13:11)
[2016-11-15] MEDS: LISINOPRIL 10 MG TAB PO SCH (08:43)
[2016-11-15] MEDS: FUROSEMIDE 20 MG TAB PO SCH (08:44)
[2016-11-15] MEDS: DILTIAZEM (CD) 120 MG CAP PO SCH (08:44)
[2016-11-15] MEDS: morphine 2 MG INJ IV PRN (10:05)
--- NOTE | 2016-11-15 12:41 | PN ---
DATE: 11/15/2016 SUBJECTIVE: The patient is doing better, looks comfortable, tolerates a regular diet. She had 2 lo ose stools this morning. She is sitting up in a chair in no distress. WBC 10.2, platelets 483, no shift. BUN 10, creatinine yesterday 0.97. ANTIMICROBIALS: The patient remains on Zosyn day #7. PHYSICAL EXAMINATION: GENERAL: This is a fragile, well-developed, elderly woman who is alert, in no distress. HEENT: Head atraumatic, normocephalic. Sclerae anicteric. Buccal mucosa pink. NECK: Supple, trachea midline. CHEST: Rise symmetrical. Breath sounds clear. HEART: S1, S2. ABDOMEN: Soft. Bowel tones present. EXTREMITIES: Without cyanosis. ASSESSMENT: 1. Systemic inflammatory response syndrome with resultant leukocytosis. 2. Micro-perforated diverticulitis, improving. Surgery on case. 3. Status post urinary tract infection. 4. Chronic atrial fibrillation. 5. History of cerebrovascular accident. PLAN: The patient remains stable, overall continues to improve, surgery on case, cardiology also fo llows. Plan to transfer her back to acute rehabilitation. Dictated By: GARRICK PARKINSON CADDYMASTER for DAVID GERONIMO/AMADOU Conf#: [id number] DID#: [id number]
== END 2016-11-15 17:00 | DRG 392 ==
LOC: TEL 19:30
PROVIDERS: ADMIT Hospitalist; ATTEND Hospitalist
DX: K57.20 Diverticulitis of large intestine with perforation and abscess without bleeding (principal); N17.9 Acute kidney failure, unspecified; I69.951 Hemiplegia and hemiparesis following unspecified cerebrovascular disease affecting right dominant side; K76.0 Fatty (change of) liver, not elsewhere classified; R65.10 Systemic inflammatory response syndrome (SIRS) of non-infectious origin without acute organ dysfunction; E87.1 Hypo-osmolality and hyponatremia; I48.2 Chronic atrial fibrillation; N39.0 Urinary tract infection, site not specified; G62.9 Polyneuropathy, unspecified; E78.5 Hyperlipidemia, unspecified; E87.6 Hypokalemia; Z66 Do not resuscitate; D64.9 Anemia, unspecified; Z85.9 Personal history of malignant neoplasm, unspecified; G89.4 Chronic pain syndrome; F41.9 Anxiety disorder, unspecified; Z79.01 Long term (current) use of anticoagulants; I69.998 Other sequelae following unspecified cerebrovascular disease; H53.8 Other visual disturbances; R07.81 Pleurodynia
CPT/HCPCS: 71010; 74000; 74010; 80048; 83735; 84100; 85025; 85610; 93306; 97116; 97162; 97530; J2270; J2405; J2543; J3480; J7042

== ENCOUNTER 2016-11-15 14:49 | Inpatient (IN) | payer MEDICARE, OTHER ==
[~2016-11-15] VITALS: Ht 160 cm; Wt 57.0 kg
[2016-11-15] MEDS ORDERED: GUAIFENESIN/CODEINE 5ML CUP PO PRN (19:30)
[2016-11-15] MEDS ORDERED: DOCUSATE SODIUM 100 MG CAP PO PRN (19:30)
[2016-11-15] MEDS ORDERED: ACETAMINOPHEN 325 MG TAB PO PRN (19:30)
[2016-11-15] MEDS ORDERED: morphine 2 MG INJ IV PRN (19:30)
[2016-11-15 20:00] VITALS: Ht 160 cm; Wt 57.0 kg
[2016-11-15] MEDS ORDERED: ONDANSETRON 4 MG INJ IV PRN (20:00)
[2016-11-15] MEDS ORDERED: ZOLPIDEM 5 MG TAB PO PRN (20:00)
[2016-11-15] MEDS ORDERED: POLYETHYLENE GLYCOL 17 GM PACKET PO PRN (20:00)
[2016-11-15 20:13] VITALS: BP 127/76; RESP 20
[2016-11-15] MEDS: ATORVASTATIN 10 MG TAB PO SCH (21:42)
[2016-11-15] MEDS: PIPER-TAZO 3.375 GM IV (PMX) 100 ML IVPB SCH (21:43)
[2016-11-15] MEDS: BENZONATATE 100 MG CAP PO SCH (21:49)
[2016-11-15] MEDS: LATANOPROST 0.005% 2.5 ML OPH BOTH EYES SCH (21:50)
[2016-11-15] MEDS: morphine 2 MG INJ IV PRN (21:53)
[2016-11-15] MEDS: ALPRAZOLAM 0.25 MG TAB PO PRN (22:06)
[2016-11-16 04:35] LABS: ADD UMIC YES; URINE BILIRUBIN (Dip) NEGATIVE (NEGATIVE); URINE BLOOD (Dip) 1+ (NEGATIVE); URINE COLOR LT. YELLOW (YELLOW); URINE GLUCOSE (Dip) NEGATIVE (NEGATIVE); URINE KETONES (Dip) TRACE (NEGATIVE); URINE LEUKOCYTE ESTERASE (Dip) 3+ (NEGATIVE); URINE NITRITE (Dip) NEGATIVE (NEGATIVE); URINE TOTAL PROTEIN (Dip) NEGATIVE (NEGATIVE); URINE UROBILINOGEN (Dip) 0.2 E.U./dL (0.1-1.0)
[2016-11-16 04:49] LABS: BACTERIA,URINE FEW; SQUAMOUS EPITHELIAL CELL,UR FEW
[2016-11-16] MEDS: PIPER-TAZO 3.375 GM IV (PMX) 100 ML IVPB SCH ×3 (05:37→21:33)
[2016-11-16] MEDS: LANSOPRAZOLE 30 MG CAP PO SCH (05:37)
[2016-11-16 06:36] LABS: BASOPHILS % 0.1 % (0.0-2.0); EOSINOPHILS # 0.2 10^3/ul (0.0-0.5); EOSINOPHILS % 1.7 % (0.0-7.0); HEMATOCRIT 28.8 % (37.0-47.0); HEMOGLOBIN 9.1 g/dl (12.0-16.0); LYMPHOCYTES # 1.8 10^3/ul (0.8-2.9); LYMPHOCYTES % 18.9 % (15.0-51.0); MEAN CORPUSCULAR HEMOGLOBIN 25.3 pg (29.0-33.0); MEAN CORPUSCULAR HGB CONC 31.7 g/dl (32.0-37.0); MEAN CORPUSCULAR VOLUME 79.8 fl (82.0-101.0); MEAN PLATELET VOLUME 8.4 fl (7.4-10.4); MONOCYTE # 1.2 10^3/ul (0.3-0.9); MONOCYTES % 11.9 % (0.0-11.0); NEUTROPHIL # 6.5 10^3/ul (1.6-7.5); NEUTROPHILS % 67.4 % (39.0-77.0); PLATELET COUNT 476 10^3/UL (140-440); RED BLOOD COUNT 3.61 10^6/ul (4.20-5.40); RED CELL DISTRIBUTION WIDTH 23.3 % (11.5-14.5); UNCORRECTED WBC 9.6 10^3/ul (4.8-10.8); WHITE BLOOD COUNT 9.6 10^3/ul (4.8-10.8)
[2016-11-16 06:53] LABS: CONDITION 1; LH ANALYZER COMMENTS 1; NUCLEATED RED BLOOD CELLS # 0.2 10^3/ul (0.0-0.0)
[2016-11-16 06:55] LABS: ALBUMIN 2.6 g/dl (3.3-4.9)
[2016-11-16 06:56] LABS: POTASSIUM 3.2 mmol/L (3.5-5.1)
[2016-11-16 06:58] LABS: ALBUMIN/GLOBULIN RATIO 0.92; BILIRUBIN,INDIRECT 0.3 mg/dl (0-1.1); BILIRUBIN,TOTAL 0.3 mg/dl (0.2-1.3); CREATININE 0.94 mg/dl (0.44-1.00); TOTAL PROTEIN 5.4 g/dl (6.1-8.1)
[2016-11-16 06:59] LABS: CALCIUM 8.4 mg/dl (8.4-10.2)
[2016-11-16 07:30] VITALS: BP 145/64; RESP 18
[2016-11-16] MEDS: BENZONATATE 100 MG CAP PO SCH ×4 (08:37→21:33)
[2016-11-16] MEDS: FUROSEMIDE 20 MG TAB PO SCH (08:38)
[2016-11-16] MEDS: DILTIAZEM (CD) 120 MG CAP PO SCH (08:38)
[2016-11-16] MEDS: LISINOPRIL 10 MG TAB PO SCH (08:38)
[2016-11-16] MEDS ORDERED: POTASSIUM CHLORIDE (SR) 20 MEQ TAB PO STA (09:23)
--- NOTE | 2016-11-16 10:11 | HP ---
DATE OF ADMISSION: 11/15/2016 CHIEF COMPLAINT: CVA, perforated diverticulitis. HISTORY OF PRESENT ILLNESS: This is a 71-year-old female with a past medical history of chronic atr ial fibrillation on Coumadin, history of hypertension, history of glaucoma, history of lymphosarcoma diagnosed at age 17, status post radiation therapy and surgical resection who was initially admitte d to [facility] approximately 4 weeks ago with shortness of breath. The patient during that time was noted to have weakness. During the course in [place] the patient had a CT scan of [facility] which showed evidence of an old infarct. The patient subsequently developed right-sided weakness during her hospital stay. A new MRI of the brain showed evidence of left frontal lobe lacunar infar ct. A carotid ultrasound and MRI was performed which was negative for any significant stenosis. Th e patient's hospital course was further complicated with right blurry vision and right temporal head ache. The patient was evaluated by rheumatology and had a biopsy performed which was negative for e vidence of GCA. The patient after being stabilized was then transferred over to [facility] for continued care. DESCRIPTION OF PROCEDURE: The patient was in [facility] acute rehab and after two or three days developed sudden abdominal pain. A CT scan was performed which showed evidence of a perforate d diverticulitis of the sigmoid colon. The patient was then subsequently transferred to telemetry w here she was placed on IV antibiotics, was seen by general surgeon, Dr. Coulter. The patient was tr eated with conservative care. No surgery was performed. The patient after being initially n.p.o., showed clinical improvement and was reintroduced on medications. The patient's abdominal pain is im proved. She was then subsequently transferred back to [facility] rehab for continued care. Upon my evaluation of patient at this time she is currently stable, abdominal pain is controlled. D enies any fevers, chills, nausea, vomiting. PAST MEDICAL HISTORY: As stated above, history of chronic AFib, history of old cerebrovascular acci dent, history of hypertension, history of glaucoma, history of liposarcoma. PAST SURGICAL HISTORY: Previous tumor resection. ALLERGIES: PATIENT IS ALLERGIC TO: 1. INFLUENZA VACCINE. 2. LACTULOSE. FAMILY HISTORY: No family history of kidney disease or heart disease. SOCIAL HISTORY: Does not drink, smoke or do drugs. MEDICATIONS: Patient's medications reviewed. REVIEW OF SYSTEMS: A 14-point review of systems was conducted. Pertinent positives in HPI, otherwi se negative. PHYSICAL EXAMINATION: VITAL SIGNS: Blood pressure is 130/70, respiration 18, pulse 90, temperature 98.0. HEENT: Head is normocephalic. Pupils are reactive to light. NECK: Supple. HEART: Irregularly irregular. LUNGS: Show diminished breath sounds at the base, otherwise clear. ABDOMEN: Soft, positive tenderness to palpation and deep palpation right lower quadrant. No reboun d or guarding. EXTREMITIES: Negative for clubbing, cyanosis, or edema. DERMATOLOGIC: No rashes. MUSCULOSKELETAL: No joint effusions. NEUROLOGIC: No focal deficits. LABORATORY DATA: Shows white count 9.6, hemoglobin 9.1, hematocrit 28.8, platelet count is 476. So dium 143, potassium 3.2, BUN 10, creatinine 0.94. ASSESSMENT AND PLAN: 1. Acute diverticulitis with perforated sigmoid colon. The patient is currently stable. Continue supportive care. Continue pain control. No plan for surgery at this time. We will follow up with Dr. Coulter for further recommendations. 2. Acute lacunar infarct with right-sided weakness. The patient is currently stable. Continue PT, OT. 3. Chronic atrial fibrillation, rate controlled. Continue medical management. The patient's INR i s currently at goal. Repeat INR is pending is very limited reviewed the patient's INR was suprather apeutic repeat INR is pending. Will dose Coumadin accordingly based on INR results. 4. Hypertension. Continue current blood pressure regimen. 5. History of episodes, status post . The patient may have underlying recurrence. We sae l continue to monitor. The patient will be followed up with outpatient oncologist. 6. Neuropathy. Continue Neurontin. 7. Dyslipidemia. Continue statin therapy. 8. Anemia. Continue to monitor hemoglobin and hematocrit levels. 9. Anxiety disorder. Continue Xanax. 10. Gastrointestinal and deep venous thrombosis prophylaxis. Continue proton pump inhibitor and Co umadin. Dictated By: CRISTIANO ALVAREZ/NTS Conf#: [id number] DID#: [id number]
[2016-11-16] MEDS: morphine 2 MG INJ IV PRN ×2 (11:13→21:41)
--- NOTE | 2016-11-16 12:42 | CONS ---
DATE OF ADMISSION: 11/15/2016 DATE OF CONSULTATION: 11/16/2016 REHABILITATION IMPAIRMENT CATEGORY: Left frontal lacunar infarct cerebrovascular accident with righ t-sided weakness. ACTIVE COMORBIDITIES: 1. Microperforation of diverticulitis. 2. History of lymphosarcoma of the abdomen. 3. Blunt head trauma with facial abrasions. 4. Sacral peripheral neuropathy. 5. Atrial fibrillation. 6. Hypertension. 7. History of cerebrovascular accident with good functional recovery. 8. History of myocardial infarction. 9. Impairments in self-care, mobility and cognition. HISTORY OF PRESENT ILLNESS: The patient is a 71-year-old right-handed female with a history of mult iple medical comorbidities who initially presented with increased shortness of breath and weakness a nd a fall with blunt head trauma and facial ecchymoses. Workup did include an MRI of the brain whic h demonstrated left frontal lobe acute lacunar infarct. She was eventually transferred to the rehab ilitation unit and was tolerating rehabilitative activities well. The patient was, however, noted t o have increased abdominal pain and was transferred to the acute hospital for acute abdomen. Workup was consistent with microperforation of diverticulitis. The patient was followed closely by shawn thompson and also followed for leukocytosis. The patient has now been cleared to return to the rehabilitat ion unit for comprehensive interdisciplinary rehabilitation. FUNCTIONAL HISTORY: Prior to recent events, she was independent in self-care tasks and mobility. Currently, the patient requires minimal to moderate assist for self-care and mobility tasks. I have reviewed the preadmission screen and the patient's current functional status is consistent wi th the preadmission screen. SOCIAL HISTORY: The patient lives at home and has a supportive family. PAST MEDICAL HISTORY: 1. Atrial fibrillation. 2. Hypertension. 3. Glaucoma. 4. History of myocardial infarction. 5. History of cerebrovascular accident with good functional recovery. 6. History of lymphosarcoma. 7. History of sacral peripheral neuropathy. CURRENT MEDICATIONS: 1. Morphine p.r.n. 2. Zosyn IV. 3. MiraLax p.r.n. 4. Coumadin, dose adjusted. 5. Xanax p.r.n. 6. Lipitor 10 mg p.o. at bedtime. 7. Tessalon 200 mg t.i.d. 8. Cardizem 120 p.o. daily. 9. Lasix 20 mg p.o. daily. 10. Prevacid 30 mg p.o. daily. 11. Xalatan eyedrops at bedtime. 12. Ambien p.r.n. ALLERGIES: THE PATIENT WITH NO KNOWN DRUG ALLERGIES. PHYSICAL EXAMINATION: VITAL SIGNS: The patient is currently afebrile with stable vital signs. HEENT: Extraocular motions intact. Oropharynx clear. Patient's right-sided facial ecchymoses cont inues to improve. NECK: Supple. LUNGS: Clear anteriorly. CARDIAC: S1, S2. ABDOMEN: Soft, nontender, positive bowel sounds. NEUROLOGIC: She is awake and alert. She is oriented to person. She will follow simple 1-step comm ands. She does have impaired short-term memory. She demonstrates antigravity strength and right up per and lower with improving fine finger movement in the right. She has good strength in the left u pper and lower extremity. PLAN: The patient has been admitted for comprehensive interdisciplinary acute rehab and is anticipa noni to tolerate 3 hours of daily therapy in divided doses for at least 5/7 days a week. Treatment p elis will include: 1. Physical therapy to focus on bed mobility, transfers, and household ambulation with the goal of having the patient reach a standby assist level. 2. Occupational therapy to focus on hygiene, grooming, dressing, bathing, and toileting activities with goal of having patient reach standby assist level. 3. Speech therapy for continued cognitive retraining with the goal of having patient return to base line cognition and for dysphagia management with the goal of having patient meet nutritional needs b y mouth. She is currently on mechanical soft diet. 4. Rehabilitation nursing for carryover of therapeutic interventions, the goal of continent of bird l and bladder, and the goal of patient and family education with regard to the aforementioned issues . REHABILITATION BARRIER: Abdominal pain. INTERVENTION FOR BARRIER: Close medical monitoring. ESTIMATED LENGTH OF STAY: 14 days. DISPOSITION GOAL: Home. I acknowledge that I performed a full physical examination on this patient within 24 hours of admiss ion to the rehabilitation unit. I believe the patient is a good candidate for comprehensive interdi sciplinary rehab care and is anticipated to tolerate 3 hours of daily therapy in divided doses for a t least 5/7 days a week. Dictated By: JEIMY VIVAS/AMADOU Conf#: [id number] [facility]#: [id number]
[2016-11-16 13:15] LABS: INR 3.14; PROTIME 32.7 Sec (12.2-14.2); PT RATIO 2.6
--- NOTE | 2016-11-16 13:16 | CONS ---
Date/Time of Note Date/Time of Note DATE: 11/16/16 TIME: 13:14 Assessment/Plan Assessment/Plan Chief Complaint/Hosp Course SUBJECTIVE: Tx to acute rehab, alert, feels good, no fevers, nad ANTIMICROBIALS: The patient remains on Zosyn day #8. PHYSICAL EXAMINATION: GENERAL: This is a fragile, well-developed, elderly woman who is alert, in no distress. HEENT: Head atraumatic, normocephalic. Sclerae anicteric. Buccal mucosa pink. NECK: Supple, trachea midline. CHEST: Rise symmetrical. Breath sounds clear. HEART: S1, S2. ABDOMEN: Soft. Bowel tones present. EXTREMITIES: Without cyanosis. ASSESSMENT: 1. Systemic inflammatory response syndrome . 2. Micro-perforated diverticulitis, improving. Surgery on case. 3. Status post urinary tract infection. 4. Chronic atrial fibrillation. 5. History of cerebrovascular accident. PLAN: The patient continues to improve, will keep on abx for 5 more days==> dw Dr Marylin JC pt Problems: Consultation Date/Type/Reason Admit Date/Time Nov 15, 2016 at 17:33 Initial Consult Date Type of Consultation: id Referring Provider: CRISTIANO JJ DO Exam/Review of Systems Vital Signs Vitals Vital Signs Date Time Temp Pulse Resp B/P Pulse Ox O2 Delivery O2 Flow Rate FiO2 11/16/16 07:30 98.6 68 18 145/64 93 Intake and Output 11/15/16 11/15/16 11/16/16 15:00 23:00 07:00 Intake Total 100 ml 340 ml Output Total 400 ml Balance 100 ml -60 ml Results Result Diagram: 11/16/16 0601 11/16/16 0601 Results 24 hrs Laboratory Tests Test 11/15/16 23:30 11/16/16 06:01 Urine Bacteria FEW Urine Bilirubin NEGATIVE Urine Clarity HAZY Urine Color LT. YELLOW Urine Glucose NEGATIVE Urine Hemoglobin 1+ H Urine Ketones TRACE H Urine Leukocyte Esterase 3+ H Urine Microscopic RBC 2-5 Urine Microscopic WBC >200 Urine Nitrite NEGATIVE Urine Specific [place] 1.020 Urine Squamous Epithelial Cells FEW Urine Total Protein NEGATIVE Urine Urobilinogen 0.2 E.U./dL Urine pH 6.0 Alanine Aminotransferase (ALT/SGPT) 32 Albumin 2.6 L Albumin/Globulin Ratio 0.92 Alkaline Phosphatase 131 H Anion Gap 14 Aspartate Amino Transf (AST/SGOT) 27 Basophils # 0.0 Basophils % 0.1 Blood Morphology Comment Blood Urea Nitrogen 10 Calcium Level 8.4 Carbon Dioxide Level 26 Chloride Level 106 Creatinine 0.94 Direct Bilirubin 0.00 Eosinophils # 0.2 Eosinophils % 1.7 Globulin 2.80 Glucose Level 87 Hematocrit 28.8 L Hemoglobin 9.1 L Indirect Bilirubin 0.3 Lymphocytes # 1.8 Lymphocytes % 18.9 Mean Corpuscular Hemoglobin 25.3 L Mean Corpuscular Hemoglobin Concent 31.7 L Mean Corpuscular Volume 79.8 L Mean Platelet Volume 8.4 Monocytes # 1.2 H Monocytes % 11.9 H Neutrophils # 6.5 Neutrophils % 67.4 Nucleated Red Blood Cells # 0.2 H Nucleated Red Blood Cells % 2.0 H Platelet Count 476 H Potassium Level 3.2 L Red Blood Count 3.61 L Red Cell Distribution Width 23.3 H Sodium Level 143 Total Bilirubin 0.3 Total Protein 5.4 L White Blood Count 9.6 Medications Medications Current Medications Acetaminophen (Tylenol Tab) 650 mg Q4H PRN PO PAIN AND OR ELEVATED TEMP; Start 11/15/16 at 19:30 Alprazolam (Xanax) 0.25 mg Q6H PRN PO ANXIETY Last administered on 11/15/16 22 :06; Admin Dose 0.25 MG; Start 11/15/16 at 19:30 Atorvastatin Calcium (Lipitor) 10 mg HS PO Last administered on 11/15/16 21:42 ; Admin Dose 10 MG; Start 11/15/16 at 21:00 Benzonatate (Tessalon) 200 mg TID PO Last administered on 11/16/16 08:37; Admin Dose 200 MG; Start 11/15/16 at 21:00 Diltiazem HCl (Cardizem Cd) 120 mg DAILY PO Last administered on 11/16/16 08: 38; Admin Dose 120 MG; Start 11/16/16 at 09:00 Docusate Sodium (Colace) 100 mg BID PRN PO CONSTIPATION; Start 11/15/16 at 19: 30 Furosemide (Lasix) 20 mg DAILY PO Last administered on 11/16/16 08:38; Admin Dose 20 MG; Start 11/16/16 at 09:00 Guaifenesin/ Codeine Phosphate (Robitussin Ac Liquid Cup) 5 ml Q4H PRN PO COUGH ; Start 11/15/16 at 19:30 Lansoprazole (Prevacid) 30 mg DAILY@06 PO Last administered on 11/16/16 05:37 ; Admin Dose 30 MG; Start 11/16/16 at 06:00 Latanoprost (Xalatan) 1 drop HS BOTH EYES Last administered on 11/15/16 21:50 ; Admin Dose 1 DROP; Start 11/15/16 at 21:00 Lisinopril (Zestril) 10 mg DAILY PO Last administered on 11/16/16 08:38; Admin Dose 10 MG; Start 11/16/16 at 09:00 Morphine Sulfate (morphine) 1 mg Q4H PRN IV PAIN; Start 11/15/16 at 19:30 Morphine Sulfate (morphine) 2 mg Q4H PRN IV SEVERE PAIN LEVEL 7-10 Last administered on 11/16/16 11:13; Admin Dose 2 MG; Start 11/15/16 at 20:00 Ondansetron HCl 4 mg 4 mg Q6H PRN IV NAUSEA AND/OR VOMITING; Start 11/15/16 at 20:00 Piperacillin Sod/ Tazobactam Sod (Zosyn 3.375gm/ 100 ml (Pmx)) 100 ml @ 200 mls /hr Q8 IVPB Last administered on 11/16/16 05:37; Admin Dose 200 MLS/HR; Start 11/15/16 at 22:00 Polyethylene Glycol (Miralax) 17 gm DAILY PRN PO CONSTIPATION; Start 11/15/16 at 20:00 Warfarin Sodium (Coumadin) 1 mg DAILY@17 PO ; Start 11/16/16 at 17:00 Zolpidem Tartrate (Ambien) 5 mg HS PRN PO INSOMNIA; Start 11/15/16 at 20:00 GARRICK PARKINSON NP Nov 16, 2016 13:16
--- NOTE | 2016-11-16 16:14 | PN ---
DATE: 11/16/2016 CARDIOLOGY FOLLOWUP PROGRESS NOTE SUBJECTIVE: Discussed with the staff. The patient has been transferred to acute rehab, doing isabella r with the physical therapy. Denies any chest pain or pressure to me. Denies any palpitation to me . Denies any bleeding to me. MEDICATIONS: Reviewed. PHYSICAL EXAMINATION: VITAL SIGNS: Temperature 98.6, heart rate of 68, blood pressure 145/64, respiration rate of 18. HEENT: Normocephalic, atraumatic. Pupils are equal. CARDIOVASCULAR: Irregularly irregular. Systolic murmur. PULMONARY: With no wheezes. GASTROINTESTINAL: Soft, nontender. EXTREMITIES: Trivial edema. NEUROLOGIC: Awake, responds appropriately. PSYCHIATRIC: Appears to be calm and pleasant. LABORATORY: WBC of 9.6, hemoglobin 9.1, platelets of 476. INR is 3.14. Sodium 143, potassium 3.2, BUN of 10, creatinine 0.94, glucose of 87. ASSESSMENT AND PLAN: 1. Atrial fibrillation, chronic. 2. History of cerebrovascular accident. 3. Microperforation diverticulitis. 4. Urinary tract infection. 5. Abdominal pain secondary to above. RECOMMENDATIONS: Coumadin is being adjusted. Electrolytes including potassium to be replaced. Con tinue physical therapy and rehabilitation. Blood pressure under good control with the current regim en. Heart rate under good control for now. Dictated By: OSMIN PERES/AMADOU Conf#: [id number] DID#: [id number] CC: CRISTIANO JJ DO;*EndCC*
[2016-11-16] MEDS: WARFARIN 1 MG TAB PO SCH (16:18)
[2016-11-16 20:00] VITALS: BP 126/69; RESP 18
[2016-11-16] MEDS: ATORVASTATIN 10 MG TAB PO SCH (21:33)
[2016-11-16] MEDS: ALPRAZOLAM 0.25 MG TAB PO PRN (21:33)
[2016-11-16] MEDS: LATANOPROST 0.005% 2.5 ML OPH BOTH EYES SCH (21:35)
[2016-11-17] MEDS: PIPER-TAZO 3.375 GM IV (PMX) 100 ML IVPB SCH ×3 (05:38→21:11)
[2016-11-17] MEDS: LANSOPRAZOLE 30 MG CAP PO SCH (05:38)
[2016-11-17 08:00] VITALS: BP 156/69; RESP 20
[2016-11-17 08:43] LABS: INR 2.98; PROTIME 31.4 Sec (12.2-14.2); PT RATIO 2.5
[2016-11-17 09:09] LABS: POTASSIUM 3.8 mmol/L (3.5-5.1)
[2016-11-17 09:10] LABS: HEMATOCRIT 32.2 % (37.0-47.0); HEMOGLOBIN 10.1 g/dl (12.0-16.0); MEAN CORPUSCULAR HEMOGLOBIN 24.9 pg (29.0-33.0); MEAN CORPUSCULAR HGB CONC 31.3 g/dl (32.0-37.0); MEAN CORPUSCULAR VOLUME 79.4 fl (82.0-101.0); MEAN PLATELET VOLUME 8.6 fl (7.4-10.4); PLATELET COUNT 543 10^3/UL (140-440); RED BLOOD COUNT 4.06 10^6/ul (4.20-5.40); RED CELL DISTRIBUTION WIDTH 23.2 % (11.5-14.5); UNCORRECTED WBC 9.8 10^3/ul (4.8-10.8); WHITE BLOOD COUNT 9.8 10^3/ul (4.8-10.8)
[2016-11-17 09:12] LABS: CREATININE 0.85 mg/dl (0.44-1.00); PHOSPHORUS 2.6 mg/dl (2.5-4.9)
[2016-11-17] MEDS: BENZONATATE 100 MG CAP PO SCH ×3 (09:12→21:10)
[2016-11-17] MEDS: DILTIAZEM (CD) 120 MG CAP PO SCH (09:12)
[2016-11-17] MEDS: LISINOPRIL 10 MG TAB PO SCH (09:12)
[2016-11-17] MEDS: FUROSEMIDE 20 MG TAB PO SCH (09:12)
[2016-11-17 09:13] LABS: CALCIUM 8.9 mg/dl (8.4-10.2)
[2016-11-17 09:18] LABS: CONDITION 1; LH ANALYZER COMMENTS 1; SUSPECT 1
--- NOTE | 2016-11-17 09:29 | CONS ---
Date/Time of Note Date/Time of Note DATE: 11/17/16 TIME: 09:27 Consult Date/Type/Reason Admit Date/Time Nov 15, 2016 at 17:33 Initial Consult Date Type of Consultation: im Ordering Provider: CRISTIANO JJ This is a 71-year-old female with a past medical history of chronic atrial fibrillation on Coumadin, history of hypertension, history of glaucoma, history of lymphosarcoma diagnosed at age 17, status post radiation therapy and surgical resection who was initially admitted to [facility] approximately 4 weeks ago with shortness of breath. The patient during that time was noted to have weakness. During the course in [place] the patient had a CT scan of brain which showed evidence of an old infarct. The patient subsequently developed right-sided weakness during her hospital stay. A new MRI of the brain showed evidence of left frontal lobe lacunar infarct. A carotid ultrasound and MRI was performed which was negative for any significant stenosis. The patient's hospital course was further complicated with right blurry vision and right temporal headache. The patient was evaluated by rheumatology and had a biopsy performed which was negative for evidence of GCA. The patient after being stabilized was then transferred over to [facility] for continued care. The patient was in [facility] acute rehab and after two or three days developed sudden abdominal pain. A CT scan was performed which showed evidence of a perforated diverticulitis of the sigmoid colon. The patient was then subsequently transferred to telemetry where she was placed on IV antibiotics, was seen by general surgeon, Dr. Coulter. The patient was treated with conservative care. No surgery was performed. The patient after being initially n.p.o., showed clinical improvement and was reintroduced on medications. The patient's abdominal pain is improved. She was then subsequently transferred back to [facility] acute rehab for continued care. she is currently stable, abdominal pain is controlled. Denies any fevers, chills, nausea, vomiting. HEENT: Head is normocephalic. Pupils are reactive to light. NECK: Supple. HEART: Irregularly irregular. LUNGS: Show diminished breath sounds at the base, otherwise clear. ABDOMEN: Soft, positive tenderness to palpation and deep palpation right lower quadrant. No rebound or guarding. EXTREMITIES: Negative for clubbing, cyanosis, or edema. DERMATOLOGIC: No rashes. MUSCULOSKELETAL: No joint effusions. NEUROLOGIC: No focal deficits. Objective Vital Signs Date Time Temp Pulse Resp B/P Pulse Ox O2 Delivery O2 Flow Rate FiO2 11/17/16 08:00 97.9 97 20 156/69 98 Intake and Output 11/16/16 11/16/16 11/17/16 15:00 23:00 07:00 Intake Total 340 ml 520 ml Output Total 1 ml Balance 339 ml 520 ml L Results/Medications Result Diagram: 11/17/16 0630 11/16/16 0601 Results 24 hrs Laboratory Tests Test 11/16/16 12:40 11/17/16 06:30 INR International Normalized Ratio 3.14 2.98 Prothrombin Time 32.7 H 31.4 H Prothrombin Time Ratio 2.6 2.5 Basophils # Basophils % Blood Morphology Comment Eosinophils # Eosinophils % Hematocrit 32.2 L Hemoglobin 10.1 L Lymphocytes # Lymphocytes % Mean Corpuscular Hemoglobin 24.9 L Mean Corpuscular Hemoglobin Concent 31.3 L Mean Corpuscular Volume 79.4 L Mean Platelet Volume 8.6 Monocytes # Monocytes % Neutrophils # Neutrophils % Nucleated Red Blood Cells # Nucleated Red Blood Cells % Platelet Count 543 H Red Blood Count 4.06 L Red Cell Distribution Width 23.2 H White Blood Count 9.8 Medications Current Medications Acetaminophen (Tylenol Tab) 650 mg Q4H PRN PO PAIN AND OR ELEVATED TEMP; Start 11/15/16 at 19:30 Alprazolam (Xanax) 0.25 mg Q6H PRN PO ANXIETY Last administered on 11/16/16 21 :33; Admin Dose 0.25 MG; Start 11/15/16 at 19:30 Atorvastatin Calcium (Lipitor) 10 mg HS PO Last administered on 11/16/16 21:33 ; Admin Dose 10 MG; Start 11/15/16 at 21:00 Benzonatate (Tessalon) 200 mg TID PO Last administered on 11/17/16 09:12; Admin Dose 200 MG; Start 11/15/16 at 21:00 Diltiazem HCl (Cardizem Cd) 120 mg DAILY PO Last administered on 11/17/16 09: 12; Admin Dose 120 MG; Start 11/16/16 at 09:00 Docusate Sodium (Colace) 100 mg BID PRN PO CONSTIPATION; Start 11/15/16 at 19: 30 Furosemide (Lasix) 20 mg DAILY PO Last administered on 11/17/16 09:12; Admin Dose 20 MG; Start 11/16/16 at 09:00 Guaifenesin/ Codeine Phosphate (Robitussin Ac Liquid Cup) 5 ml Q4H PRN PO COUGH ; Start 11/15/16 at 19:30 Lansoprazole (Prevacid) 30 mg DAILY@06 PO Last administered on 11/17/16 05:38 ; Admin Dose 30 MG; Start 11/16/16 at 06:00 Latanoprost (Xalatan) 1 drop HS BOTH EYES Last administered on 11/16/16 21:35 ; Admin Dose 1 DROP; Start 11/15/16 at 21:00 Lisinopril (Zestril) 10 mg DAILY PO Last administered on 11/17/16 09:12; Admin Dose 10 MG; Start 11/16/16 at 09:00 Morphine Sulfate (morphine) 1 mg Q4H PRN IV PAIN; Start 11/15/16 at 19:30 Morphine Sulfate (morphine) 2 mg Q4H PRN IV SEVERE PAIN LEVEL 7-10 Last administered on 11/16/16 21:41; Admin Dose 2 MG; Start 11/15/16 at 20:00 Ondansetron HCl 4 mg 4 mg Q6H PRN IV NAUSEA AND/OR VOMITING; Start 11/15/16 at 20:00 Piperacillin Sod/ Tazobactam Sod (Zosyn 3.375gm/ 100 ml (Pmx)) 100 ml @ 200 mls /hr Q8 IVPB Last administered on 11/17/16 05:38; Admin Dose 200 MLS/HR; Start 11/15/16 at 22:00 Polyethylene Glycol (Miralax) 17 gm DAILY PRN PO CONSTIPATION; Start 11/15/16 at 20:00 Warfarin Sodium (Coumadin) 1 mg DAILY@17 PO Last administered on 11/16/16 16: 18; Admin Dose 1 MG; Start 11/16/16 at 17:00 Zolpidem Tartrate (Ambien) 5 mg HS PRN PO INSOMNIA; Start 11/15/16 at 20:00 Assessment/Plan Chief Complaint/Hosp Course 1. Acute diverticulitis with perforated sigmoid colon. The patient is currently stable. Continue supportive care. Continue pain control. No plan for surgery at this time. We will follow up with Dr. Coulter for further recommendations. 2. Acute lacunar infarct with right-sided weakness. The patient is currently stable. Continue PT, OT. 3. Chronic atrial fibrillation, rate controlled. Continue medical management. The patient's INR is currently at goal. Repeat INR is pending is very limited reviewed the patient's INR was supratherapeutic repeat INR is pending. Will dose Coumadin accordingly based on INR results. 4. Hypertension. Continue current blood pressure regimen. 5. History of episodes, status post . The patient may have underlying recurrence. We will continue to monitor. The patient will be followed up with outpatient oncologist. 6. Neuropathy. Continue Neurontin. 7. Dyslipidemia. Continue statin therapy. 8. Anemia. Continue to monitor hemoglobin and hematocrit levels. 9. Anxiety disorder. Continue Xanax. 10. Gastrointestinal and deep venous thrombosis prophylaxis. Continue proton pump inhibitor and Coumadin. Problems: WIL BALDERAS MD Nov 17, 2016 09:29
[2016-11-17] MEDS: morphine 2 MG INJ IV PRN ×2 (09:31→21:20)
[2016-11-17 10:35] LABS: EOSINOPHILS # 0.4 10^3/ul (0.0-0.5); LYMPHOCYTES # 4.2 10^3/ul (0.8-2.9); MONOCYTE # 1.1 10^3/ul (0.3-0.9)
--- NOTE | 2016-11-17 14:36 | PN ---
Date/Time of Note Date/Time of Note DATE: 11/17/16 TIME: 14:31 Assessment/Plan VTE Prophylaxis VTE Prophylaxis Intervention: other (coumadin) Lines/Catheters IV Catheter Type (from Nrs): Saline Lock Urinary Cath still in place: No Assessment/Plan Assessment/Plan 1. Left frontal lacunar infarction with dominant right-sided weakness, impaired mobility/gait/ADLs. Continue PT/OT. Min assist for transfers and gait with FWW. Continue Secondary stroke prevention. 2. Microperforated diverticulitis. Medical management per general surgery and ID, following. Remains on antibiotics. Monitor clinically. 3. History of lymphosarcoma s/p surgical resection and RT. To follow up with oncology. 4. Blunt head trauma with facial abrasions. 5. Peripheral neuropathy. Continue neurontin. 6. Chronic Atrial fibrillation. Continue rate control and anticoagulation per cardiology. 7. Hypertension. BP in fair control. 8. History of prior cerebrovascular accident with good functional recovery. 9. Anemia. Hemoglobin/hematocrit improving on labs today, monitor. Subjective 24 Hr Interval Summary Free Text/Dictation Rehab progress note Subjective: Reports no new complaints. No acute overnight events per nursing staff. ROS: Denies chest pain, no shortness of breath, no nausea or vomiting, no constipation or dysuria, no chills, no current abdominal pain, no new weakness or new paresthesias. Exam/Review of Systems Vital Signs Vitals Vital Signs Date Time Temp Pulse Resp B/P Pulse Ox O2 Delivery O2 Flow Rate FiO2 11/17/16 08:00 97.9 97 20 156/69 98 Intake and Output 11/16/16 11/16/16 11/17/16 15:00 23:00 07:00 Intake Total 340 ml 520 ml Output Total 1 ml Balance 339 ml 520 ml Exam General: Awake, alert, no acute distress CV: Irregular rhythm, s1s2 Lungs: Diminished breath sounds bilaterally, no wheezing Abdomen soft, no rebound or guarding, +bowel sounds Extremities: Calves nontender, no cyanosis Neuro: Follows simple commands. Right sided weakness. Results Result Diagram: 11/17/16 0630 11/17/16 0630 Results 24 hrs Laboratory Tests Test 11/17/16 06:30 Anion Gap 16 Band Neutrophils % 1.0 Basophils # Basophils % Blood Morphology Comment Blood Urea Nitrogen 8 Calcium Level 8.9 Carbon Dioxide Level 24 Chloride Level 107 Creatinine 0.85 Eosinophils # 0.4 Eosinophils % 4.0 Glucose Level 80 Hematocrit 32.2 L Hemoglobin 10.1 L INR International Normalized Ratio 2.98 Lymphocytes # 4.2 H Lymphocytes % 43.0 Magnesium Level 2.0 Mean Corpuscular Hemoglobin 24.9 L Mean Corpuscular Hemoglobin Concent 31.3 L Mean Corpuscular Volume 79.4 L Mean Platelet Volume 8.6 Monocytes # 1.1 H Monocytes % 11.0 Neutrophils # 4.0 Neutrophils % 41.0 Nucleated Red Blood Cells # Nucleated Red Blood Cells % 1.0 H Phosphorus Level 2.6 Platelet Count 543 H Potassium Level 3.8 Prothrombin Time 31.4 H Prothrombin Time Ratio 2.5 Red Blood Count 4.06 L Red Cell Distribution Width 23.2 H Sodium Level 143 White Blood Count 9.8 Medications Medications Current Medications Acetaminophen (Tylenol Tab) 650 mg Q4H PRN PO PAIN AND OR ELEVATED TEMP; Start 11/15/16 at 19:30 Alprazolam (Xanax) 0.25 mg Q6H PRN PO ANXIETY Last administered on 11/16/16 21 :33; Admin Dose 0.25 MG; Start 11/15/16 at 19:30 Atorvastatin Calcium (Lipitor) 10 mg HS PO Last administered on 11/16/16 21:33 ; Admin Dose 10 MG; Start 11/15/16 at 21:00 Benzonatate (Tessalon) 200 mg TID PO Last administered on 11/17/16 09:12; Admin Dose 200 MG; Start 11/15/16 at 21:00 Diltiazem HCl (Cardizem Cd) 120 mg DAILY PO Last administered on 11/17/16 09: 12; Admin Dose 120 MG; Start 11/16/16 at 09:00 Docusate Sodium (Colace) 100 mg BID PRN PO CONSTIPATION; Start 11/15/16 at 19: 30 Furosemide (Lasix) 20 mg DAILY PO Last administered on 11/17/16 09:12; Admin Dose 20 MG; Start 11/16/16 at 09:00 Guaifenesin/ Codeine Phosphate (Robitussin Ac Liquid Cup) 5 ml Q4H PRN PO COUGH ; Start 11/15/16 at 19:30 Lansoprazole (Prevacid) 30 mg DAILY@06 PO Last administered on 11/17/16 05:38 ; Admin Dose 30 MG; Start 11/16/16 at 06:00 Latanoprost (Xalatan) 1 drop HS BOTH EYES Last administered on 11/16/16 21:35 ; Admin Dose 1 DROP; Start 11/15/16 at 21:00 Lisinopril (Zestril) 10 mg DAILY PO Last administered on 11/17/16 09:12; Admin Dose 10 MG; Start 11/16/16 at 09:00 Morphine Sulfate (morphine) 1 mg Q4H PRN IV PAIN; Start 11/15/16 at 19:30 Morphine Sulfate (morphine) 2 mg Q4H PRN IV SEVERE PAIN LEVEL 7-10 Last administered on 11/17/16 09:31; Admin Dose 2 MG; Start 11/15/16 at 20:00 Ondansetron HCl 4 mg 4 mg Q6H PRN IV NAUSEA AND/OR VOMITING; Start 11/15/16 at 20:00 Piperacillin Sod/ Tazobactam Sod (Zosyn 3.375gm/ 100 ml (Pmx)) 100 ml @ 200 mls /hr Q8 IVPB Last administered on 11/17/16 05:38; Admin Dose 200 MLS/HR; Start 11/15/16 at 22:00 Polyethylene Glycol (Miralax) 17 gm DAILY PRN PO CONSTIPATION; Start 11/15/16 at 20:00 Warfarin Sodium (Coumadin) 1 mg DAILY@17 PO Last administered on 11/16/16 16: 18; Admin Dose 1 MG; Start 11/16/16 at 17:00 Zolpidem Tartrate (Ambien) 5 mg HS PRN PO INSOMNIA; Start 11/15/16 at 20:00 RADHA BOOKER Nov 17, 2016 14:36
[2016-11-17] MEDS: WARFARIN 1 MG TAB PO SCH (16:59)
[2016-11-17 19:00] VITALS: BP 133/59; RESP 18
--- NOTE | 2016-11-17 20:14 | QN ---
Documentation Comment TYPE OF CONSULTATION: Surgical. DATE OF ADMISSION: 11/15/2016 DATE OF CONSULTATION: 11/15/2016 REFERRING PHYSICIAN: Dr. Zurdo Keenan. CHIEF COMPLAINT: 1. Abdominal pain, recent 2. Micro-perforated diverticulitis, recent 3. Leukocytosis, recent, resolved 4. Anemia. HISTORY OF PRESENT ILLNESS: Lulu Albarran is a 71-year-old female with multiple comorbidities who initially presented to [facility] few weeks ago with progressive shortness of breath with lower extremity edema and a fall with facial trauma. A CT scan at that point had shown evidence of older infarct , left frontal lobe lacunar infarct. Carotid ultrasound and MRI were negative for any stenoses. She developed right temporal headaches with right blurry eye vision and was started on steroids by dermatology. She subsequently had a temporal artery biopsy which was negative for GCA. Steroids were discontinued. She was subsequently transferred to [facility] for physical therapy. However, the day prior to transfer to the acute hospital , she started having abdominal pain that became worse with leukocytosis. CT scan was obtained, which identified perforated sigmoid diverticulitis without a fluid collection. She was transferred to [facility] and placed on abx. She recovered well from that and tolerated diet and having bowel functions. Pain improved. Now she is transferred back to Rehab and continued surgical follow up is requested. She also has bilateral adnexal cysts measuring 10 cm. She denies any fevers or chills. Some nausea but no vomiting. No chest pain. No shortness of breath. No visual or neurologic changes that are acute. No cough. She is having bowel function. No dysuria. No vaginal discharge. PAST MEDICAL HISTORY: 1. History of chronic atrial fibrillation 2. History of old cerebrovascular accident. 3. Hypertension. 4. Glaucoma. 5. Liposarcoma history. 6. Micro-perforated diverticulitis. 7. Facial trauma on fall. 8. Shortness of breath. 9. Lower extremity edema. 10. Right blurry vision. 11. Nonoliguric kidney injury. 12. Electrolyte abnormalities with hyponatremia. 13. Neuropathy. 14. Chronic pain syndrome. 15. Anemia. 16. Anxiety disorder. 17. Dyslipidemia. 18. History of DVT and PE. PAST SURGICAL HISTORY: 1. Abdominal lymphosarcoma excision at age 17 followed by irradiation. 2. Appendectomy. 3. Pelvic surgery. 4. Attempted cardioversion in June of 2015. ALLERGIES: PER CHART. SOCIAL HISTORY: No current alcohol, drugs or tobacco. FAMILY HISTORY: Noncontributory. REVIEW OF SYSTEMS: A 12-point review of system reported as per HPI, otherwise negative. PHYSICAL EXAMINATION: VITAL SIGNS: AVSS GENERAL: No acute distress, comfortable. HEENT: Pupils are equal, reactive. No scleral icterus. NECK: Supple, no crepitus, no JVD. PULMONARY: Normal respiratory effort. No wheezing. CARDIAC: S1, S2 present. ABDOMEN: Soft, NT, ND. No rebound, no guarding, not rigid. EXTREMITIES: Minimal edema. VASCULAR: Capillary refill is 2 seconds. NEUROLOGIC: Alert, oriented, moves all 4 extremities grossly. LABORATORY DATA AND RADIOGRAPHIC: Noted ASSESSMENT AND PLAN: Ms. Lulu Gauthier is a 71-year-old female with multiple significant comorbidities. 1. Micro-perforated diverticulitis sealed and healed. Diverticulosis. s/p Abx. -bowel regimen -eventual laparoscopic resection of this site as outpt 2. 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 Adnexal lesions. -oncology f/u. . 3. Left lacunar infarct with right-sided weakness. Currently stable. -physical therapy. -medical optimization 4. Chronic atrial fibrillation. -medical optimization, rate control, and anticoagulation. 5. Anemia without evidence of acute blood loss. Continue close observation. Thank you very much for consulting me in this patient's care. CRYS CORCORAN MD Nov 17, 2016 20:14
--- NOTE | 2016-11-17 20:16 | PN ---
Date/Time of Note Date/Time of Note DATE: 11/16/16 TIME: 20:14 Assessment/Plan Lines/Catheters IV Catheter Type (from [facility]): Saline Lock Ta in Place (from [facility]): No Assessment/Plan Chief Complaint/Hosp Course 1. Micro-perforated diverticulitis sealed and healed. Diverticulosis. s/p Abx. -bowel regimen -eventual laparoscopic resection of this site as outpt 2. 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 Adnexal lesions. -oncology f/u. . 3. Left lacunar infarct with right-sided weakness. Currently stable. -physical therapy. -medical optimization 4. Chronic atrial fibrillation. -medical optimization, rate control, and anticoagulation. 5. Anemia without evidence of acute blood loss. Continue close observation. Thank you, Late entry 11/16 Problems: Subjective 24 Hr Interval Summary No abdominal pain. Flatus and BM. She denies any fevers or chills. Some nausea but no vomiting. No chest pain. No shortness of breath. No visual or neurologic changes that are acute. No cough. No dysuria. No abnormal discharge. Exam/Review of Systems Vital Signs Vitals Vital Signs Date Time Temp Pulse Resp B/P Pulse Ox O2 Delivery O2 Flow Rate FiO2 11/17/16 19:00 98.1 96 18 133/59 96 Intake and Output 11/16/16 11/16/16 11/17/16 15:00 23:00 07:00 Intake Total 340 ml 520 ml Output Total 1 ml Balance 339 ml 520 ml Exam Free Text/Dictation GENERAL: No acute distress, comfortable. HEENT: Pupils are equal, reactive. No scleral icterus. NECK: Supple, no crepitus, no JVD. PULMONARY: Normal respiratory effort. No wheezing. CARDIAC: S1, S2 present. ABDOMEN: Soft and tender in the lower quadrant. No rebound, no guarding, not rigid. EXTREMITIES: Minimal edema. VASCULAR: Capillary refill is 2 seconds. NEUROLOGIC: Alert, oriented, moves all 4 extremities grossly. Results Result Diagram: 11/17/1630 11/17/16 0630 CRYS CORCORAN MD Nov 17, 2016 20:16
--- NOTE | 2016-11-17 20:16 | PN ---
Date/Time of Note Date/Time of Note DATE: 11/17/16 TIME: 20:16 Assessment/Plan Lines/Catheters IV Catheter Type (from [facility]): Saline Lock Ta in Place (from [facility]): No Assessment/Plan Chief Complaint/Hosp Course 1. Micro-perforated diverticulitis sealed and healed. Diverticulosis. s/p Abx. -bowel regimen -eventual laparoscopic resection of this site as outpt 2. 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 Adnexal lesions. -oncology f/u. . 3. Left lacunar infarct with right-sided weakness. Currently stable. -physical therapy. -medical optimization 4. Chronic atrial fibrillation. -medical optimization, rate control, and anticoagulation. 5. Anemia without evidence of acute blood loss. Continue close observation. Thank you, Problems: Subjective 24 Hr Interval Summary No abdominal pain. Flatus and BM. She denies any fevers or chills. Some nausea but no vomiting. No chest pain. No shortness of breath. No visual or neurologic changes that are acute. No cough. No dysuria. No abnormal discharge. Exam/Review of Systems Vital Signs Vitals Vital Signs Date Time Temp Pulse Resp B/P Pulse Ox O2 Delivery O2 Flow Rate FiO2 11/17/16 19:00 98.1 96 18 133/59 96 Intake and Output 11/16/16 11/16/16 11/17/16 15:00 23:00 07:00 Intake Total 340 ml 520 ml Output Total 1 ml Balance 339 ml 520 ml Exam Free Text/Dictation GENERAL: No acute distress, comfortable. HEENT: Pupils are equal, reactive. No scleral icterus. NECK: Supple, no crepitus, no JVD. PULMONARY: Normal respiratory effort. No wheezing. CARDIAC: S1, S2 present. ABDOMEN: Soft and tender in the lower quadrant. No rebound, no guarding, not rigid. EXTREMITIES: Minimal edema. VASCULAR: Capillary refill is 2 seconds. NEUROLOGIC: Alert, oriented, moves all 4 extremities grossly. Results Result Diagram: 11/17/1630 11/17/1630 CRYS CORCORAN MD Nov 17, 2016 20:16
[2016-11-17] MEDS: LATANOPROST 0.005% 2.5 ML OPH BOTH EYES SCH (21:08)
[2016-11-17] MEDS: ATORVASTATIN 10 MG TAB PO SCH (21:08)
[2016-11-18] MEDS: morphine 2 MG INJ IV PRN ×2 (01:36→21:16)
[2016-11-18] MEDS: LANSOPRAZOLE 30 MG CAP PO SCH (06:25)
[2016-11-18] MEDS: PIPER-TAZO 3.375 GM IV (PMX) 100 ML IVPB SCH ×3 (06:25→21:14)
[2016-11-18 07:30] VITALS: BP 137/65; RESP 18
[2016-11-18] MEDS: LISINOPRIL 10 MG TAB PO SCH (08:54)
[2016-11-18] MEDS: BENZONATATE 100 MG CAP PO SCH ×3 (08:54→21:14)
[2016-11-18] MEDS: FUROSEMIDE 20 MG TAB PO SCH (08:59)
[2016-11-18] MEDS: DILTIAZEM (CD) 120 MG CAP PO SCH (08:59)
--- NOTE | 2016-11-18 09:38 | CONS ---
Date/Time of Note Date/Time of Note DATE: 11/18/16 TIME: 09:36 Consult Date/Type/Reason Admit Date/Time Nov 15, 2016 at 17:33 Type of Consultation: im Ordering Provider: CRISTIANO JJ This is a 71-year-old female with a past medical history of chronic atrial fibrillation on Coumadin, history of hypertension, history of glaucoma, history of lymphosarcoma diagnosed at age 17, status post radiation therapy and surgical resection who was initially admitted to [facility] approximately 4 weeks ago with shortness of breath. The patient during that time was noted to have weakness. During the course in [place] the patient had a CT scan of brain which showed evidence of an old infarct. The patient subsequently developed right-sided weakness during her hospital stay. A new MRI of the brain showed evidence of left frontal lobe lacunar infarct. A carotid ultrasound and MRI was performed which was negative for any significant stenosis. The patient's hospital course was further complicated with right blurry vision and right temporal headache. The patient was evaluated by rheumatology and had a biopsy performed which was negative for evidence of GCA. The patient after being stabilized was then transferred over to [facility] for continued care. The patient was in [facility] acute rehab and after two or three days developed sudden abdominal pain. A CT scan was performed which showed evidence of a perforated diverticulitis of the sigmoid colon. The patient was then subsequently transferred to telemetry where she was placed on IV antibiotics, was seen by general surgeon, Dr. Coulter. The patient was treated with conservative care. No surgery was performed. The patient after being initially n.p.o., showed clinical improvement and was reintroduced on medications. The patient's abdominal pain is improved. She was then subsequently transferred back to [facility] acute rehab for continued care. she is currently stable, abdominal pain is controlled. Denies any fevers, chills, nausea, vomiting. HEENT: Head is normocephalic. Pupils are reactive to light. NECK: Supple. HEART: Irregularly irregular. LUNGS: Show diminished breath sounds at the base, otherwise clear. ABDOMEN: Soft, positive tenderness to palpation and deep palpation right lower quadrant. No rebound or guarding. EXTREMITIES: Negative for clubbing, cyanosis, or edema. DERMATOLOGIC: No rashes. MUSCULOSKELETAL: No joint effusions. NEUROLOGIC: No focal deficits. Objective Vital Signs Date Time Temp Pulse Resp B/P Pulse Ox O2 Delivery O2 Flow Rate FiO2 11/17/16 19:00 98.1 96 18 133/59 96 Intake and Output 11/17/16 11/17/16 11/18/16 15:00 23:00 07:00 Intake Total 680 ml 360 ml Balance 680 ml 360 ml Results/Medications Result Diagram: 11/17/1630 11/17/16 0630 Medications Current Medications Acetaminophen (Tylenol Tab) 650 mg Q4H PRN PO PAIN AND OR ELEVATED TEMP; Start 11/15/16 at 19:30 Alprazolam (Xanax) 0.25 mg Q6H PRN PO ANXIETY Last administered on 11/16/16 21 :33; Admin Dose 0.25 MG; Start 11/15/16 at 19:30 Atorvastatin Calcium (Lipitor) 10 mg HS PO Last administered on 11/17/16 21:08 ; Admin Dose 10 MG; Start 11/15/16 at 21:00 Benzonatate (Tessalon) 200 mg TID PO Last administered on 11/18/16 08:54; Admin Dose 200 MG; Start 11/15/16 at 21:00 Diltiazem HCl (Cardizem Cd) 120 mg DAILY PO Last administered on 11/18/16 08: 59; Admin Dose 120 MG; Start 11/16/16 at 09:00 Docusate Sodium (Colace) 100 mg BID PRN PO CONSTIPATION; Start 11/15/16 at 19: 30 Furosemide (Lasix) 20 mg DAILY PO Last administered on 11/18/16 08:59; Admin Dose 20 MG; Start 11/16/16 at 09:00 Guaifenesin/ Codeine Phosphate (Robitussin Ac Liquid Cup) 5 ml Q4H PRN PO COUGH ; Start 11/15/16 at 19:30 Lansoprazole (Prevacid) 30 mg DAILY@06 PO Last administered on 11/18/16 06:25 ; Admin Dose 30 MG; Start 11/16/16 at 06:00 Latanoprost (Xalatan) 1 drop HS BOTH EYES Last administered on 11/17/16 21:08 ; Admin Dose 1 DROP; Start 11/15/16 at 21:00 Lisinopril (Zestril) 10 mg DAILY PO Last administered on 11/18/16 08:54; Admin Dose 10 MG; Start 11/16/16 at 09:00 Morphine Sulfate (morphine) 1 mg Q4H PRN IV PAIN; Start 11/15/16 at 19:30 Morphine Sulfate (morphine) 2 mg Q4H PRN IV SEVERE PAIN LEVEL 7-10 Last administered on 11/18/16 01:36; Admin Dose 2 MG; Start 11/15/16 at 20:00 Ondansetron HCl 4 mg 4 mg Q6H PRN IV NAUSEA AND/OR VOMITING; Start 11/15/16 at 20:00 Piperacillin Sod/ Tazobactam Sod (Zosyn 3.375gm/ 100 ml (Pmx)) 100 ml @ 200 mls /hr Q8 IVPB Last administered on 11/18/16 06:25; Admin Dose 200 MLS/HR; Start 11/15/16 at 22:00 Polyethylene Glycol (Miralax) 17 gm DAILY PRN PO CONSTIPATION; Start 11/15/16 at 20:00 Warfarin Sodium (Coumadin) 1 mg DAILY@17 PO Last administered on 11/17/16 16: 59; Admin Dose 1 MG; Start 11/16/16 at 17:00 Zolpidem Tartrate (Ambien) 5 mg HS PRN PO INSOMNIA Last administered on 00:41; Admin Dose 5 MG; Start 11/15/16 at 20:00 Assessment/Plan Chief Complaint/Hosp Course 1. Acute diverticulitis with perforated sigmoid colon. The patient is currently stable. Continue supportive care. Continue pain control. No plan for surgery at this time. We will follow up with Dr. Coulter for further recommendations. 2. Acute lacunar infarct with right-sided weakness. The patient is currently stable. Continue PT, OT. 3. Chronic atrial fibrillation, rate controlled. Continue medical management. Will dose Coumadin accordingly based on INR results. 4. Hypertension. Continue current blood pressure regimen. 5. History of lymphosarcoma.. The patient may have underlying recurrence. We will continue to monitor. The patient will be followed up with outpatient oncologist. 6. Neuropathy. Continue Neurontin. 7. Dyslipidemia. Continue statin therapy. 8. Anemia. Continue to monitor hemoglobin and hematocrit levels. 9. Anxiety disorder. Continue Xanax. 10. Gastrointestinal and deep venous thrombosis prophylaxis. Continue proton pump inhibitor and Coumadin. Problems: WIL BALDERAS MD Nov 18, 2016 09:38
--- NOTE | 2016-11-18 10:46 | PN ---
Date/Time of Note Date/Time of Note DATE: 11/18/16 TIME: 10:44 Assessment/Plan VTE Prophylaxis VTE Prophylaxis Intervention: other (coumadin) Lines/Catheters IV Catheter Type (from Nrs): Saline Lock Urinary Cath still in place: No Assessment/Plan Assessment/Plan 1. Left frontal lobe lacunar infarction with right-sided dominant hemiparesis, impaired mobility/gait/ADLs. Continue PT/OT. Supervision for feeding and upper body bathing. Mod assist for lower body dressing Continue Secondary stroke prevention. 2. Microperforated diverticulitis. Treated conservatively per general surgery. Continue Medical management per general surgery and ID- remains on antibiotics per ID. 3. History of lymphosarcoma s/p surgical resection and RT. To follow up with oncology. 4. Blunt head trauma with facial abrasions. 5. Peripheral neuropathy. 6. Chronic Atrial fibrillation. Rate controlled. On anticoagulation with coumadin per cardiology and internal medicine. 7. Hypertension. BP controlled. 8. History of cerebrovascular accident with good functional recovery. 9. Anemia. Continue to monitor hemoglobin/hematocrit. Subjective 24 Hr Interval Summary Free Text/Dictation Rehab progress note Subjective: Reports some nausea earlier this morning, no vomiting. No abdominal pain. ROS: Denies headache, no shortness of breath, no chest pain, no dysuria, no chills. Exam/Review of Systems Vital Signs Vitals Vital Signs Date Time Temp Pulse Resp B/P Pulse Ox O2 Delivery O2 Flow Rate FiO2 11/18/16 07:30 98.2 80 18 137/65 92 Intake and Output 11/17/16 11/17/16 11/18/16 15:00 23:00 07:00 Intake Total 680 ml 360 ml Balance 680 ml 360 ml Exam General: Laying in bed in no acute distress, awake, alert CV: Irregularly irregular, s1s2 Lungs without wheezing, no crackles Abdomen soft, nontender to palpation Extremities without new swelling, no cyanosis Neuro: No new focal deficits. Results Result Diagram: 11/17/1630 11/17/16 0630 Medications Medications Current Medications Acetaminophen (Tylenol Tab) 650 mg Q4H PRN PO PAIN AND OR ELEVATED TEMP; Start 11/15/16 at 19:30 Alprazolam (Xanax) 0.25 mg Q6H PRN PO ANXIETY Last administered on 11/16/16t 21 :33; Admin Dose 0.25 MG; Start 11/15/16 at 19:30 Atorvastatin Calcium (Lipitor) 10 mg HS PO Last administered on 11/17/16 21:08 ; Admin Dose 10 MG; Start 11/15/16 at 21:00 Benzonatate (Tessalon) 200 mg TID PO Last administered on 11/18/16 08:54; Admin Dose 200 MG; Start 11/15/16 at 21:00 Diltiazem HCl (Cardizem Cd) 120 mg DAILY PO Last administered on 11/18/16 08: 59; Admin Dose 120 MG; Start 11/16/16 at 09:00 Docusate Sodium (Colace) 100 mg BID PRN PO CONSTIPATION; Start 11/15/16 at 19: 30 Furosemide (Lasix) 20 mg DAILY PO Last administered on 11/18/16 08:59; Admin Dose 20 MG; Start 11/16/16 at 09:00 Guaifenesin/ Codeine Phosphate (Robitussin Ac Liquid Cup) 5 ml Q4H PRN PO COUGH ; Start 11/15/16 at 19:30 Lansoprazole (Prevacid) 30 mg DAILY@06 PO Last administered on 11/18/16 06:25 ; Admin Dose 30 MG; Start 11/16/16 at 06:00 Latanoprost (Xalatan) 1 drop HS BOTH EYES Last administered on 11/17/16 21:08 ; Admin Dose 1 DROP; Start 11/15/16 at 21:00 Lisinopril (Zestril) 10 mg DAILY PO Last administered on 11/18/16 08:54; Admin Dose 10 MG; Start 11/16/16 at 09:00 Morphine Sulfate (morphine) 1 mg Q4H PRN IV PAIN; Start 11/15/16 at 19:30 Morphine Sulfate (morphine) 2 mg Q4H PRN IV SEVERE PAIN LEVEL 7-10 Last administered on 11/18/16 01:36; Admin Dose 2 MG; Start 11/15/16 at 20:00 Ondansetron HCl 4 mg 4 mg Q6H PRN IV NAUSEA AND/OR VOMITING; Start 11/15/16 at 20:00 Piperacillin Sod/ Tazobactam Sod (Zosyn 3.375gm/ 100 ml (Pmx)) 100 ml @ 200 mls /hr Q8 IVPB Last administered on 11/18/16 06:25; Admin Dose 200 MLS/HR; Start 11/15/16 at 22:00 Polyethylene Glycol (Miralax) 17 gm DAILY PRN PO CONSTIPATION; Start 11/15/16 at 20:00 Warfarin Sodium (Coumadin) 1 mg DAILY@17 PO Last administered on 11/17/16 16: 59; Admin Dose 1 MG; Start 11/16/16 at 17:00 Zolpidem Tartrate (Ambien) 5 mg HS PRN PO INSOMNIA Last administered on 00:41; Admin Dose 5 MG; Start 11/15/16 at 20:00 RADHA BOOKER Nov 18, 2016 10:46
[2016-11-18] MEDS: WARFARIN 1 MG TAB PO SCH (17:00)
--- NOTE | 2016-11-18 18:35 | PN ---
DATE: 11/18/2016 CARDIOLOGY FOLLOWUP SUBJECTIVE: Discussed with the staff. The patient with no chest pain or pressure. No palpitation. Slight abdominal pain. MEDICATIONS: Reviewed as per medical reconciliation, personally reviewed. PHYSICAL EXAMINATION: VITAL SIGNS: Temperature 98.2, heart rate of 80, blood pressure 137/65, respirations 18, saturating 92% to 96%. HEENT: Normocephalic, atraumatic. Pupils are equal. CARDIOVASCULAR: Irregularly irregular. PULMONARY: Anteriorly with no wheezes heard. GASTROINTESTINAL: Soft, nontender. EXTREMITIES: With trivial edema. NEUROLOGIC: Awake, responds appropriately. PSYCHIATRIC: Appears to be calm and pleasant. LABORATORY: Sodium 143, potassium 3.8, BUN of 8, creatinine 0.85, glucose of 80. INR was 2.98 as o f yesterday. ASSESSMENT AND PLAN: 1. Atrial fibrillation, heart rate controlled. 2. Status post cerebrovascular accident, anticoagulation. 3. Diverticulitis, on antibiotic. 4. Abdominal pain secondary to above. 5. Hypertension, under good control. 6. Debility, in rehabilitation. RECOMMENDATIONS: Continue with current care. Follow up INR tomorrow and adjust the Coumadin as nee ded. Dictated By: OSMIN AGUIRRE MD AV/NTS Conf#: [id number] DID#: [id number] CC: CRISTIANO JJ DO; JEIMY GARRETT MD;*EndCC*
[2016-11-18 19:27] VITALS: BP 130/69; RESP 18
--- NOTE | 2016-11-18 19:28 | CONS ---
Date/Time of Note Date/Time of Note DATE: 11/18/16 TIME: 19:26 Assessment/Plan Assessment/Plan Chief Complaint/Hosp Course SUBJECTIVE: No acute events per report, sleeping, no fevers, nad ANTIMICROBIALS: The patient remains on Zosyn day #10. PHYSICAL EXAMINATION: GENERAL: This is a fragile, well-developed, elderly woman who is alert, in no distress. HEENT: Head atraumatic, normocephalic. Sclerae anicteric. Buccal mucosa pink. NECK: Supple, trachea midline. CHEST: Rise symmetrical. Breath sounds clear. HEART: S1, S2. ABDOMEN: Soft. Bowel tones present. EXTREMITIES: Without cyanosis. ASSESSMENT: 1. Systemic inflammatory response syndrome . 2. Micro-perforated diverticulitis, improving. Surgery on case. 3. Status post urinary tract infection. 4. Chronic atrial fibrillation. 5. History of cerebrovascular accident. PLAN: The patient stable, completing abx, surgery on case i DW pt Problems: Consultation Date/Type/Reason Admit Date/Time Nov 15, 2016 at 17:33 Type of Consultation: ID Referring Provider: CRISTIANO JJ DO Exam/Review of Systems Vital Signs Vitals Vital Signs Date Time Temp Pulse Resp B/P Pulse Ox O2 Delivery O2 Flow Rate FiO2 11/18/16 07:30 98.2 80 18 137/65 92 Intake and Output 11/17/16 11/17/16 11/18/16 15:00 23:00 07:00 Intake Total 680 ml 360 ml Balance 680 ml 360 ml Results Result Diagram: 11/17/16 0630 11/17/16 0630 Medications Medications Current Medications Acetaminophen (Tylenol Tab) 650 mg Q4H PRN PO PAIN AND OR ELEVATED TEMP; Start 11/15/16 at 19:30 Alprazolam (Xanax) 0.25 mg Q6H PRN PO ANXIETY Last administered on 11/16/16 21 :33; Admin Dose 0.25 MG; Start 11/15/16 at 19:30 Atorvastatin Calcium (Lipitor) 10 mg HS PO Last administered on 11/17/16 21:08 ; Admin Dose 10 MG; Start 11/15/16 at 21:00 Benzonatate (Tessalon) 200 mg TID PO Last administered on 11/18/16 12:11; Admin Dose 200 MG; Start 11/15/16 at 21:00 Diltiazem HCl (Cardizem Cd) 120 mg DAILY PO Last administered on 11/18/16 08: 59; Admin Dose 120 MG; Start 11/16/16 at 09:00 Docusate Sodium (Colace) 100 mg BID PRN PO CONSTIPATION; Start 11/15/16 at 19: 30 Furosemide (Lasix) 20 mg DAILY PO Last administered on 11/18/16 08:59; Admin Dose 20 MG; Start 11/16/16 at 09:00 Guaifenesin/ Codeine Phosphate (Robitussin Ac Liquid Cup) 5 ml Q4H PRN PO COUGH ; Start 11/15/16 at 19:30 Lansoprazole (Prevacid) 30 mg DAILY@06 PO Last administered on 11/18/16 06:25 ; Admin Dose 30 MG; Start 11/16/16 at 06:00 Latanoprost (Xalatan) 1 drop HS BOTH EYES Last administered on 11/17/16 21:08 ; Admin Dose 1 DROP; Start 11/15/16 at 21:00 Lisinopril (Zestril) 10 mg DAILY PO Last administered on 11/18/16 08:54; Admin Dose 10 MG; Start 11/16/16 at 09:00 Morphine Sulfate (morphine) 1 mg Q4H PRN IV PAIN; Start 11/15/16 at 19:30 Morphine Sulfate (morphine) 2 mg Q4H PRN IV SEVERE PAIN LEVEL 7-10 Last administered on 11/18/16 01:36; Admin Dose 2 MG; Start 11/15/16 at 20:00 Ondansetron HCl 4 mg 4 mg Q6H PRN IV NAUSEA AND/OR VOMITING; Start 11/15/16 at 20:00 Piperacillin Sod/ Tazobactam Sod (Zosyn 3.375gm/ 100 ml (Pmx)) 100 ml @ 200 mls /hr Q8 IVPB Last administered on 11/18/16 13:13; Admin Dose 200 MLS/HR; Start 11/15/16 at 22:00 Polyethylene Glycol (Miralax) 17 gm DAILY PRN PO CONSTIPATION; Start 11/15/16 at 20:00 Warfarin Sodium (Coumadin) 1 mg DAILY@17 PO Last administered on 11/18/16 17: 00; Admin Dose 1 MG; Start 11/16/16 at 17:00 Zolpidem Tartrate (Ambien) 5 mg HS PRN PO INSOMNIA Last administered on t 00:41; Admin Dose 5 MG; Start 11/15/16 at 20:00 GARRICK PARKINSON NP Nov 18, 2016 19:27
[2016-11-18] MEDS ORDERED: FLUCONAZOLE 200 MG TAB PO ONE (19:30)
[2016-11-18] MEDS: ATORVASTATIN 10 MG TAB PO SCH (21:14)
[2016-11-18] MEDS: LATANOPROST 0.005% 2.5 ML OPH BOTH EYES SCH (21:14)
[2016-11-18] MEDS: ALPRAZOLAM 0.25 MG TAB PO PRN (22:37)
--- NOTE | 2016-11-18 23:30 | PN ---
Date/Time of Note Date/Time of Note DATE: 11/18/16 TIME: 23:29 Assessment/Plan Lines/Catheters IV Catheter Type (from [facility]): Saline Lock Ta in Place (from [facility]): No Assessment/Plan Chief Complaint/Hosp Course 1. Micro-perforated diverticulitis sealed and healed. Diverticulosis. s/p Abx. -bowel regimen -eventual laparoscopic resection of this site as outpt 2. 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 Adnexal lesions. -oncology f/u. . 3. Left lacunar infarct with right-sided weakness. Currently stable. -physical therapy. -medical optimization 4. Chronic atrial fibrillation. -medical optimization, rate control, and anticoagulation. 5. Anemia without evidence of acute blood loss. Continue close observation. Thank you, Problems: Subjective 24 Hr Interval Summary No abdominal pain. Flatus and BM. She denies any fevers or chills. Some nausea but no vomiting. No chest pain. No shortness of breath. No visual or neurologic changes that are acute. No cough. No dysuria. No abnormal discharge. Exam/Review of Systems Vital Signs Vitals Vital Signs Date Time Temp Pulse Resp B/P Pulse Ox O2 Delivery O2 Flow Rate FiO2 11/18/16 19:27 98.9 88 18 130/69 96 Intake and Output 11/17/16 11/17/16 11/18/16 15:00 23:00 07:00 Intake Total 680 ml 360 ml Balance 680 ml 360 ml Exam Free Text/Dictation GENERAL: No acute distress, comfortable. HEENT: Pupils are equal, reactive. No scleral icterus. NECK: Supple, no crepitus, no JVD. PULMONARY: Normal respiratory effort. No wheezing. CARDIAC: S1, S2 present. ABDOMEN: Soft and tender in the lower quadrant. No rebound, no guarding, not rigid. EXTREMITIES: Minimal edema. VASCULAR: Capillary refill is 2 seconds. NEUROLOGIC: Alert, oriented, moves all 4 extremities grossly. Results Result Diagram: 11/17/1662911/17/16629 CRYS CORCORAN MD Nov 18, 2016 23:30
[2016-11-19] MEDS: LANSOPRAZOLE 30 MG CAP PO SCH (05:58)
[2016-11-19] MEDS: PIPER-TAZO 3.375 GM IV (PMX) 100 ML IVPB SCH ×3 (05:58→21:03)
[2016-11-19] MEDS: ALPRAZOLAM 0.25 MG TAB PO PRN (06:00)
[2016-11-19 06:56] LABS: INR 2.3; PROTIME 25.6 Sec (12.2-14.2)
[2016-11-19 07:01] LABS: HEMATOCRIT 30.6 % (37.0-47.0); HEMOGLOBIN 9.6 g/dl (12.0-16.0); MEAN CORPUSCULAR HEMOGLOBIN 24.8 pg (29.0-33.0); MEAN CORPUSCULAR HGB CONC 31.5 g/dl (32.0-37.0); MEAN CORPUSCULAR VOLUME 78.8 fl (82.0-101.0); MEAN PLATELET VOLUME 8.6 fl (7.4-10.4); PLATELET COUNT 547 10^3/UL (140-440); RED BLOOD COUNT 3.88 10^6/ul (4.20-5.40); RED CELL DISTRIBUTION WIDTH 23.3 % (11.5-14.5)
[2016-11-19 07:06] LABS: POTASSIUM 3.5 mmol/L (3.5-5.1)
[2016-11-19 07:08] LABS: CREATININE 0.89 mg/dl (0.44-1.00)
[2016-11-19 07:09] LABS: ALBUMIN/GLOBULIN RATIO 0.96; BILIRUBIN,INDIRECT 0.4 mg/dl (0-1.1); BILIRUBIN,TOTAL 0.4 mg/dl (0.2-1.3); TOTAL PROTEIN 6.1 g/dl (6.1-8.1)
[2016-11-19 07:10] LABS: CALCIUM 9.1 mg/dl (8.4-10.2)
[2016-11-19 07:28] LABS: CONDITION 1; LH ANALYZER COMMENTS 1
[2016-11-19 07:30] VITALS: BP 141/66; RESP 18
[2016-11-19] MEDS: FUROSEMIDE 20 MG TAB PO SCH (08:52)
[2016-11-19] MEDS: DILTIAZEM (CD) 120 MG CAP PO SCH (08:53)
[2016-11-19] MEDS: LISINOPRIL 10 MG TAB PO SCH (08:55)
[2016-11-19] MEDS: BENZONATATE 100 MG CAP PO SCH ×3 (08:55→20:57)
--- NOTE | 2016-11-19 11:25 | CONS ---
Date/Time of Note Date/Time of Note DATE: 11/19/16 TIME: 11:24 Consult Date/Type/Reason Admit Date/Time Nov 15, 2016 at 17:33 Initial Consult Date Type of Consultation: ID Ordering Provider: CRISTIANO JJ DO Subjective Feeling better Objective HEENT- echymosis improving pulm- cta abd- soft Vital Signs Date Time Temp Pulse Resp B/P Pulse Ox O2 Delivery O2 Flow Rate FiO2 11/18/16 19:27 98.9 88 18 130/69 96 Intake and Output 11/18/16 11/18/16 11/19/16 15:00 23:00 07:00 Intake Total 200 ml 1440 ml 460 ml Output Total 3 ml Balance 200 ml 1437 ml 460 ml INTERDISCIPLINARY TEAM CONFERENCE BOWEL- Cont BLADDER-Cont SKIN- intact OT- DRESSING-min/mod BATHING-min/mod TOILETING-min/mod PT- BED MOBILITY-min TRANSFERS-min AMBULATION-min 75 feet SPEECH- COGNITION-s A/P- Interdisciplinary team conference held today. Please see interdisciplinary sheet. Working toward d.c. on 11/27 with post discharge follow up of physical therapy, occupational therapy. Results/Medications Result Diagram: 11/19/16 0555 11/19/16 0555 Results 24 hrs Laboratory Tests Test 11/19/16 05:55 Alanine Aminotransferase (ALT/SGPT) 32 Albumin 3.0 L Albumin/Globulin Ratio 0.96 Alkaline Phosphatase 161 H Anion Gap 16 Aspartate Amino Transf (AST/SGOT) 25 Blood Morphology Comment Blood Urea Nitrogen 7 Calcium Level 9.1 Carbon Dioxide Level 27 Chloride Level 107 Creatinine 0.89 Direct Bilirubin 0.00 Globulin 3.10 Glucose Level 80 Hematocrit 30.6 L Hemoglobin 9.6 L INR International Normalized Ratio 2.30 Indirect Bilirubin 0.4 Mean Corpuscular Hemoglobin 24.8 L Mean Corpuscular Hemoglobin Concent 31.5 L Mean Corpuscular Volume 78.8 L Mean Platelet Volume 8.6 Platelet Count 547 H Potassium Level 3.5 Prothrombin Time 25.6 H Prothrombin Time Ratio 2.0 Red Blood Count 3.88 L Red Cell Distribution Width 23.3 H Sodium Level 146 H Total Bilirubin 0.4 Total Protein 6.1 White Blood Count 9.0 Medications Current Medications Acetaminophen (Tylenol Tab) 650 mg Q4H PRN PO PAIN AND OR ELEVATED TEMP; Start 11/15/16 at 19:30 Alprazolam (Xanax) 0.25 mg Q6H PRN PO ANXIETY Last administered on 11/19/16 06 :00; Admin Dose 0.25 MG; Start 11/15/16 at 19:30 Atorvastatin Calcium (Lipitor) 10 mg HS PO Last administered on 11/18/16 21:14 ; Admin Dose 10 MG; Start 11/15/16 at 21:00 Benzonatate (Tessalon) 200 mg TID PO Last administered on 11/18/16 21:14; Admin Dose 200 MG; Start 11/15/16 at 21:00 Diltiazem HCl (Cardizem Cd) 120 mg DAILY PO Last administered on 11/19/16 08: 53; Admin Dose 120 MG; Start 11/16/16 at 09:00 Docusate Sodium (Colace) 100 mg BID PRN PO CONSTIPATION; Start 11/15/16 at 19: 30 Guaifenesin/ Codeine Phosphate (Robitussin Ac Liquid Cup) 5 ml Q4H PRN PO COUGH ; Start 11/15/16 at 19:30 Lansoprazole (Prevacid) 30 mg DAILY@06 PO Last administered on 11/19/16 05:58 ; Admin Dose 30 MG; Start 11/16/16 at 06:00 Latanoprost (Xalatan) 1 drop HS BOTH EYES Last administered on 11/18/16 21:14 ; Admin Dose 1 DROP; Start 11/15/16 at 21:00 Lisinopril (Zestril) 10 mg DAILY PO Last administered on 11/19/16 08:55; Admin Dose 10 MG; Start 11/16/16 at 09:00 Morphine Sulfate (morphine) 1 mg Q4H PRN IV PAIN; Start 11/15/16 at 19:30 Morphine Sulfate (morphine) 2 mg Q4H PRN IV SEVERE PAIN LEVEL 7-10 Last administered on 11/18/16 21:16; Admin Dose 2 MG; Start 11/15/16 at 20:00 Ondansetron HCl 4 mg 4 mg Q6H PRN IV NAUSEA AND/OR VOMITING; Start 11/15/16 at 20:00 Piperacillin Sod/ Tazobactam Sod (Zosyn 3.375gm/ 100 ml (Pmx)) 100 ml @ 200 mls /hr Q8 IVPB Last administered on 11/19/16 05:58; Admin Dose 200 MLS/HR; Start 11/15/16 at 22:00 Polyethylene Glycol (Miralax) 17 gm DAILY PRN PO CONSTIPATION; Start 11/15/16 at 20:00 Warfarin Sodium (Coumadin) 1 mg DAILY@17 PO Last administered on 11/18/16 17: 00; Admin Dose 1 MG; Start 11/16/16 at 17:00 Zolpidem Tartrate (Ambien) 5 mg HS PRN PO INSOMNIA Last administered on 00:41; Admin Dose 5 MG; Start 11/15/16 at 20:00 Furosemide (Lasix) 40 mg DAILY PO ; Start 11/20/16 at 09:00 JEIMY GARRETT MD Nov 19, 2016 11:25
[2016-11-19 11:27] LABS: EOSINOPHILS # 0.6 10^3/ul (0.0-0.5); LYMPHOCYTES # 2.7 10^3/ul (0.8-2.9); MONOCYTE # 1.4 10^3/ul (0.3-0.9); NEUTROPHIL # 4.3 10^3/ul (1.6-7.5)
[2016-11-19 11:28] LABS: ANISOCYTOSIS 3+; HYPOCHROMASIA 3+; MICROCYTOSIS 1+
--- NOTE | 2016-11-19 11:31 | RADRPT ---
PROCEDURE: XR Chest. CLINICAL INDICATION: Chest pain TECHNIQUE: Chest AP portable. COMPARISON: 11/11/2016 FINDINGS: The mediastinal structures are unremarkable. There is calcification of the thoracic aorta (consiste nt with atherosclerosis). There is mild cardiomegaly. The pulmonary vascularity is normal. There is mild bibasilar subsegmental atelectasis. The pleural spaces are unremarkable. There are senescent changes of the axial skeleton. IMPRESSION: Mild cardiomegaly Mild bibasilar subsegmental atelectasis RPTAT: HGDB .Greyson Diaz MD, Date Time Electronically viewed and signed by .Greyson Diaz MD, on 11/19/2016 11:31 .B/
--- NOTE | 2016-11-19 13:16 | PN ---
Date/Time of Note Date/Time of Note DATE: 11/19/16 TIME: 13:16 Assessment/Plan Lines/Catheters IV Catheter Type (from [facility]): Saline Lock Ta in Place (from [facility]): No Assessment/Plan Chief Complaint/Hosp Course 1. Micro-perforated diverticulitis sealed and healed. Diverticulosis. s/p Abx. -bowel regimen -eventual laparoscopic resection of this site as outpt 2. 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 Adnexal lesions. -oncology f/u. . 3. Left lacunar infarct with right-sided weakness. Currently stable. -physical therapy. -medical optimization 4. Chronic atrial fibrillation. -medical optimization, rate control, and anticoagulation. 5. Anemia without evidence of acute blood loss. Continue close observation. Thank you, Problems: Subjective 24 Hr Interval Summary No abdominal pain. Flatus and BM. She denies any fevers or chills. Some nausea but no vomiting. No chest pain. No shortness of breath. No visual or neurologic changes that are acute. No cough. No dysuria. No abnormal discharge. Exam/Review of Systems Vital Signs Vitals Vital Signs Date Time Temp Pulse Resp B/P Pulse Ox O2 Delivery O2 Flow Rate FiO2 11/19/16 07:30 98.5 72 18 141/66 93 Intake and Output 11/18/16 11/18/16 11/19/16 15:00 23:00 07:00 Intake Total 200 ml 1440 ml 460 ml Output Total 3 ml Balance 200 ml 1437 ml 460 ml Exam Free Text/Dictation GENERAL: No acute distress, comfortable. HEENT: Pupils are equal, reactive. No scleral icterus. NECK: Supple, no crepitus, no JVD. PULMONARY: Normal respiratory effort. No wheezing. CARDIAC: S1, S2 present. ABDOMEN: Soft and tender in the lower quadrant. No rebound, no guarding, not rigid. EXTREMITIES: Minimal edema. VASCULAR: Capillary refill is 2 seconds. NEUROLOGIC: Alert, oriented, moves all 4 extremities grossly. Results Result Diagram: 11/19/16 0555 11/19/16 0555 CRYS CORCORAN MD Nov 19, 2016 13:16
--- NOTE | 2016-11-19 13:22 | PN ---
DATE: 11/19/2016 SUBJECTIVE: Last night the patient had an episode of chest pain and shortness of breath. The patie nt was given oxygen pain medication with improvement in her symptoms. The patient's chest pain reso lved this morning. The patient states her pain is reproducible upon palpation of her sternum. No o ther events noted. OBJECTIVE: VITAL SIGNS: Blood pressure 130/69, respirations 18, pulse 88, temperature 98.9. HEENT: Head is normocephalic. NECK: Supple. HEART: Regular rate. LUNGS: Show diminished breath sounds at the base. CHEST: Positive tenderness to palpation along the costochondral region and sternum. ABDOMEN: Soft. Mild tenderness to palpation. EXTREMITIES: Negative for clubbing, cyanosis. Positive edema. DERMATOLOGIC: No rashes. MUSCULOSKELETAL: No joint effusions. NEUROLOGIC: No change in exam. LABORATORY DATA: Shows sodium 146, potassium 3.5, BUN 7, creatinine 0.89. White count 9.0, hemoglo bin 9.6, hematocrit 30.6, platelet count is 547. ASSESSMENT AND PLAN: 1. Acute diverticulitis with perforated sigmoid colon. The patient is currently stable. Continue supportive care, pain control. No plans for surgery. Appreciate Dr. Coulter's evaluation. 2. Chest pain, etiology is likely musculoskeletal. The patient's pain is reproducible on exam. Pl an, however, is to check a chest x-ray to rule out any acute cardiopulmonary process. Will continue pain medications, consider NSAID use. Will monitor closely. 3. Acute lacunar infarct with right-sided weakness. Continue current medical management. 4. Chronic atrial fibrillation, rate controlled. Continue current medical management. INR is at g oal. Appreciate senior data warehouse architect's evaluation. 5. Hypertension. Continue current blood pressure regimen. 6. History of lymphosarcoma. The patient is status post surgery and chemotherapy. The patient may have underlying recurrence. We will continue to monitor. 7. Neuropathy. Continue Neurontin. 8. Dyslipidemia. Continue statin therapy. 9. Anemia. Continue to monitor hemoglobin and hematocrit levels. 10. Anxiety disorder. Continue Xanax. 11. Gastrointestinal and deep venous thrombosis prophylaxis. Continue proton pump inhibitor and Co umadin. 12. Hypernatremia. Continue to encourage free water intake. Dictated By: CRISTIANO ALVAREZ/AMADOU Conf#: [id number] [facility]#: [id number]
[2016-11-19] MEDS: GABAPENTIN 100 MG CAP PO SCH ×2 (13:27→20:57)
[2016-11-19] MEDS: morphine 2 MG INJ IV PRN (13:28)
[2016-11-19] MEDS: WARFARIN 1 MG TAB PO SCH (17:34)
--- NOTE | 2016-11-19 18:16 | PN ---
DATE: 11/19/2016 SUBJECTIVE: Discussed with the staff. The patient with no chest pain or pressure. Has had mild ab dominal discomfort. No palpitations, no bleeding. MEDICATIONS: Reviewed. PHYSICAL EXAMINATION: VITAL SIGNS: Temperature 98.5, heart rate 72, blood pressure 140/66, respiratory rate 18, saturatin g 93%. HEENT: Normocephalic, atraumatic. No acute distress. Pupils are equal. CARDIOVASCULAR: Irregularly irregular. Systolic murmur. PULMONARY: No wheezes heard. CHEST: Positive reproducible chest wall tenderness. GASTROINTESTINAL: Soft. Mild tenderness to palpation. No rebound, no guarding. EXTREMITIES: Trivial lower extremity edema. NEUROLOGIC: Awake and alert. PSYCHIATRIC: Appeared to be calm, pleasant. LABORATORY: WBC of 9, hemoglobin 9.6, platelets of 547. INR is 2.3. Sodium 143, potassium 3.5, BU N of 7, creatinine 0.89, glucose of 80. ASSESSMENT AND PLAN: 1. Atrial fibrillation, chronic and heart rate controlled and is on anticoagulation. 2. History of cerebrovascular accident, currently anticoagulated. 3. Chest wall tenderness. 4. Abdominal pain and diverticulitis with microperforation, currently is improving. 5. Dyslipidemia. 6. Anemia. 7. Anxiety. RECOMMENDATIONS: Continue with physical therapy and rehab. Anticoagulation will be continued. INR is therapeutic. Will check intermittently and adjust it as needed. Dictated By: OSMIN PERES/AMADOU Conf#: [id number] DID#: [id number] CC: CRISTIANO JJ DO;*EndCC*
[2016-11-19 19:23] VITALS: BP 112/62; RESP 19
[2016-11-19] MEDS: LATANOPROST 0.005% 2.5 ML OPH BOTH EYES SCH (20:57)
[2016-11-19] MEDS: ATORVASTATIN 10 MG TAB PO SCH (20:57)
[2016-11-20] MEDS: morphine 2 MG INJ IV PRN ×2 (02:56→21:00)
[2016-11-20] MEDS: LANSOPRAZOLE 30 MG CAP PO SCH (06:10)
[2016-11-20] MEDS: PIPER-TAZO 3.375 GM IV (PMX) 100 ML IVPB SCH (06:10)
[2016-11-20 07:17] VITALS: BP 133/64; RESP 17
[2016-11-20] MEDS: BENZONATATE 100 MG CAP PO SCH ×3 (08:38→20:58)
[2016-11-20] MEDS: FUROSEMIDE 40 MG TAB PO SCH (08:39)
[2016-11-20] MEDS: DILTIAZEM (CD) 120 MG CAP PO SCH (08:40)
[2016-11-20] MEDS: LISINOPRIL 10 MG TAB PO SCH (08:40)
[2016-11-20] MEDS: GABAPENTIN 100 MG CAP PO SCH (08:40)
[2016-11-20 10:21] LABS: HEMATOCRIT 30.8 % (37.0-47.0); HEMOGLOBIN 9.6 g/dl (12.0-16.0); MEAN CORPUSCULAR HEMOGLOBIN 24.9 pg (29.0-33.0); MEAN CORPUSCULAR HGB CONC 31.3 g/dl (32.0-37.0); MEAN CORPUSCULAR VOLUME 79.6 fl (82.0-101.0); MEAN PLATELET VOLUME 8.6 fl (7.4-10.4); PLATELET COUNT 574 10^3/UL (140-440); RED BLOOD COUNT 3.87 10^6/ul (4.20-5.40)
[2016-11-20 10:25] LABS: CONDITION 1; INR 2.14; LH ANALYZER COMMENTS 1; PROTIME 24.1 Sec (12.2-14.2); PT RATIO 1.9
[2016-11-20 10:26] LABS: CREATININE 0.83 mg/dl (0.44-1.00)
[2016-11-20 10:27] LABS: PHOSPHORUS 2.5 mg/dl (2.5-4.9)
[2016-11-20 10:28] LABS: CALCIUM 8.9 mg/dl (8.4-10.2); MAGNESIUM 1.8 mg/dl (1.7-2.5)
[2016-11-20 10:29] LABS: POTASSIUM 2.9 mmol/L (3.5-5.1)
[2016-11-20 10:48] LABS: EOSINOPHILS # 0.4 10^3/ul (0.0-0.5); LYMPHOCYTES # 2.3 10^3/ul (0.8-2.9); MONOCYTE # 0.4 10^3/ul (0.3-0.9); NEUTROPHIL # 6.8 10^3/ul (1.6-7.5)
[2016-11-20] MEDS ORDERED: POTASSIUM CHLORIDE (SR) 10 MEQ TAB PO ONE (11:00)
[2016-11-20] MEDS ORDERED: POTASSIUM CHLORIDE (SR) 20 MEQ TAB PO SCH (11:30)
--- NOTE | 2016-11-20 12:01 | PN ---
DATE: 11/20/2016 SUBJECTIVE: The patient is clinically feeling better. No acute events overnight. No hemoptysis, h ematemesis or hematochezia. Chest pain is resolved. OBJECTIVE: VITAL SIGNS: Blood pressure is 133/64, respirations 19, pulse 79, temperature 97.8. HEENT: Head is normocephalic. NECK: Supple. HEART: Regular rate. LUNGS: Show diminished breath sounds at base. ABDOMEN: Soft, nontender to palpation. No rebound or guarding. EXTREMITIES: Negative for clubbing, cyanosis, no edema. DERMATOLOGIC: No rashes. MUSCULOSKELETAL: No joint effusions. NEUROLOGIC: No change in exam. MEDICATIONS: The patient's medications have been reviewed. LABORATORY DATA: Laboratory data has been reviewed. No new labs. IMAGING: Chest x-ray was reviewed, showed bilateral atelectasis. ASSESSMENT AND PLAN: 1. Acute diverticulitis with perforated sigmoid colon. The patient is currently stable. Continue treatment plan, supportive care. No plans for surgery. 2. Chest pain, etiology is musculoskeletal, resolved. Continue to monitor. 3. Acute lacunar infarct with right-sided weakness. Continue current medical management. 4. Chronic atrial fibrillation, well controlled. Continue current treatment plan. Follow up with Cardiology. 5. Hypertension, controlled. Continue current blood pressure regimen. 6. History of lymphosarcoma. The patient is status post surgery and chemotherapy. Continue to mon itor. The patient may have underlying recurrence. Workup will be done in outpatient setting. 7. Neuropathy. The patient is on Neurontin. Will increase dose to 300 mg b.i.d. 8. Dyslipidemia. Continue statin therapy. 9. Anemia. Continue to monitor hemoglobin and hematocrit levels. 10. Anxiety disorder. Continue Xanax. 11. Gastrointestinal and deep venous thrombosis prophylaxis. Continue PPI and Coumadin. 11. Hyponatremia. Continue current free water intake. Dictated By: CRSITIANO ALVAREZ/AMADOU Conf#: [id number] DID#: [id number]
--- NOTE | 2016-11-20 12:09 | CONS ---
Date/Time of Note Date/Time of Note DATE: 11/20/16 TIME: 12:07 Consult Date/Type/Reason Admit Date/Time Nov 15, 2016 at 17:33 Type of Consultation: ID Ordering Provider: CRISTIANO JJ DO Subjective reorts feeling much better since neurontin resumed Objective pulm- cta abd-soft min assist transfers and amb 60 feet Vital Signs Date Time Temp Pulse Resp B/P Pulse Ox O2 Delivery O2 Flow Rate FiO2 11/20/16 07:17 97.8 79 17 133/64 94 11/20/16 05:28 2.0 Intake and Output 11/19/16 11/19/16 11/20/16 14:59 22:59 06:59 Intake Total 100 ml 720 ml 450 ml Output Total 650 ml Balance 100 ml 720 ml -200 ml Results/Medications Result Diagram: 11/20/16 0939 11/20/16 0939 Results 24 hrs Laboratory Tests Test 11/20/16 09:39 Anion Gap 15 Band Neutrophils % 1.0 Blood Morphology Comment Blood Urea Nitrogen 9 Calcium Level 8.9 Carbon Dioxide Level 24 Chloride Level 106 Creatinine 0.83 Eosinophils # 0.4 Eosinophils % 4.0 Glucose Level 105 Hematocrit 30.8 L Hemoglobin 9.6 L INR International Normalized Ratio 2.14 Lymphocytes # 2.3 Lymphocytes % 23.0 Magnesium Level 1.8 Mean Corpuscular Hemoglobin 24.9 L Mean Corpuscular Hemoglobin Concent 31.3 L Mean Corpuscular Volume 79.6 L Mean Platelet Volume 8.6 Monocytes # 0.4 Monocytes % 4.0 Neutrophils # 6.8 Neutrophils % 68.0 Phosphorus Level 2.5 Platelet Count 574 H Potassium Level 2.9 *L Prothrombin Time 24.1 H Prothrombin Time Ratio 1.9 Red Blood Count 3.87 L Red Cell Distribution Width 24.0 H Sodium Level 142 White Blood Count 10.0 Medications Current Medications Acetaminophen (Tylenol Tab) 650 mg Q4H PRN PO PAIN AND OR ELEVATED TEMP; Start 11/15/16 at 19:30 Alprazolam (Xanax) 0.25 mg Q6H PRN PO ANXIETY Last administered on 11/19/16 06 :00; Admin Dose 0.25 MG; Start 11/15/16 at 19:30 Atorvastatin Calcium (Lipitor) 10 mg HS PO Last administered on 11/19/16 20:57 ; Admin Dose 10 MG; Start 11/15/16 at 21:00 Benzonatate (Tessalon) 200 mg TID PO Last administered on 11/20/16 08:38; Admin Dose 200 MG; Start 11/15/16 at 21:00 Diltiazem HCl (Cardizem Cd) 120 mg DAILY PO Last administered on 11/20/16 08: 40; Admin Dose 120 MG; Start 11/16/16 at 09:00 Docusate Sodium (Colace) 100 mg BID PRN PO CONSTIPATION; Start 11/15/16 at 19: 30 Guaifenesin/ Codeine Phosphate (Robitussin Ac Liquid Cup) 5 ml Q4H PRN PO COUGH Last administered on 11/20/16 02:55; Admin Dose 5 ML; Start 11/15/16 at 19:30 Lansoprazole (Prevacid) 30 mg DAILY@06 PO Last administered on 11/20/16 06:10 ; Admin Dose 30 MG; Start 11/16/16 at 06:00 Latanoprost (Xalatan) 1 drop HS BOTH EYES Last administered on 11/19/16 20:57 ; Admin Dose 1 DROP; Start 11/15/16 at 21:00 Lisinopril (Zestril) 10 mg DAILY PO Last administered on 11/20/16 08:40; Admin Dose 10 MG; Start 11/16/16 at 09:00 Morphine Sulfate (morphine) 1 mg Q4H PRN IV PAIN; Start 11/15/16 at 19:30 Morphine Sulfate (morphine) 2 mg Q4H PRN IV SEVERE PAIN LEVEL 7-10 Last administered on 11/20/16 02:56; Admin Dose 2 MG; Start 11/15/16 at 20:00 Ondansetron HCl 4 mg 4 mg Q6H PRN IV NAUSEA AND/OR VOMITING; Start 11/15/16 at 20:00 Piperacillin Sod/ Tazobactam Sod (Zosyn 3.375gm/ 100 ml (Pmx)) 100 ml @ 200 mls /hr Q8 IVPB Last administered on 11/20/16 06:10; Admin Dose 200 MLS/HR; Start 11/15/16 at 22:00 Polyethylene Glycol (Miralax) 17 gm DAILY PRN PO CONSTIPATION; Start 2/16/17 at 20:00 Warfarin Sodium (Coumadin) 1 mg DAILY@17 PO Last administered on 11/19/16 17: 34; Admin Dose 1 MG; Start 11/16/16 at 17:00 Zolpidem Tartrate (Ambien) 5 mg HS PRN PO INSOMNIA Last administered on 00:41; Admin Dose 5 MG; Start 11/15/16 at 20:00 Furosemide (Lasix) 40 mg DAILY PO Last administered on 11/20/16 08:39; Admin Dose 40 MG; Start 11/20/16 at 09:00 Gabapentin (Neurontin) 300 mg BID PO ; Start 11/20/16 at 21:00 Assessment/Plan Additional Assessment/Plan Rehab- Left frontal lacunar infarct cerebrovascular accident with right-sided weakness; BHT with improving facial echymosis; sacral peripheral neuropathy Increase activities as tolerated Microperforation of diverticulitis History of lymphosarcoma of the abdomen. Atrial fibrillation. Hypertension-monitor History of cerebrovascular accident with good functional recovery. History of myocardial infarction. JEIMY GARRETT MD Nov 20, 2016 12:09
--- NOTE | 2016-11-20 12:34 | PN ---
DATE: 11/20/2016 CARDIOLOGY FOLLOWUP PROGRESS NOTE SUBJECTIVE: Discussed with the staff. No new cardiac event. No chest pain or pressure. Abdominal pain has stabilized. MEDICATIONS: Reviewed. PHYSICAL EXAMINATION: VITAL SIGNS: Temperature 97.8, heart rate of 79, blood pressure 133/64, respirations 17, saturating 94%. HEENT: Normocephalic, atraumatic. Pupils are equal. CARDIOVASCULAR: Irregularly irregular. Systolic murmur. PULMONARY: With no wheezes. GASTROINTESTINAL: Soft, mild tenderness to palpation. EXTREMITIES: Trivial edema. NEUROLOGIC: Awake, responds appropriately. PSYCHIATRIC: Appears to be calm and pleasant. LABORATORY: WBC of 10, hemoglobin 9.6, platelets of 5.74. INR is 2.14. Sodium 142, potassium 2.9, BUN of 9, creatinine 0.83, glucose of 105. Magnesium is 1.8. ASSESSMENT AND PLAN: 1. Atrial fibrillation, chronic. 2. History of cerebrovascular accident. 3. Debility. 4. Abdominal pain, diverticulitis. 5. Electrolyte abnormalities. RECOMMENDATIONS: Potassium supplement has been ordered. We will continue with the current cardiac care including Cardizem and Lisinopril. Coumadin will be continued and adjusted as needed. Continu e physical therapy and rehabilitation. Dictated By: OSMIN PERES/AMADOU Conf#: [id number] DID#: [id number] CC: CRISTIANO JJ DO;*EndCC*
--- NOTE | 2016-11-20 13:05 | CONS ---
Date/Time of Note Date/Time of Note DATE: 11/20/16 TIME: 13:04 Assessment/Plan Assessment/Plan Chief Complaint/Hosp Course SUBJECTIVE: No acute events per report, no fevers, alert, feels good, no n/v/d nad ANTIMICROBIALS: The patient remains on Zosyn PHYSICAL EXAMINATION: GENERAL: This is a fragile, well-developed, elderly woman who is alert, in no distress. HEENT: Head atraumatic, normocephalic. Sclerae anicteric. Buccal mucosa pink. NECK: Supple, trachea midline. CHEST: Rise symmetrical. Breath sounds clear. HEART: S1, S2. ABDOMEN: Soft. Bowel tones present. EXTREMITIES: Without cyanosis. ASSESSMENT: 1. Systemic inflammatory response syndrome . 2. S/p Micro-perforated diverticulitis 3. Status post urinary tract infection. 4. Chronic atrial fibrillation. 5. History of cerebrovascular accident. PLAN: The patient stable, dc abx DW pt Problems: Consultation Date/Type/Reason Admit Date/Time Nov 15, 2016 at 17:33 Type of Consultation: ID Referring Provider: CRISTIANO JJ DO Exam/Review of Systems Vital Signs Vitals Vital Signs Date Time Temp Pulse Resp B/P Pulse Ox O2 Delivery O2 Flow Rate FiO2 11/20/16 07:17 97.8 79 17 133/64 94 11/20/16 05:28 2.0 Intake and Output 11/19/16 11/19/16 11/20/16 15:00 23:00 07:00 Intake Total 100 ml 720 ml 450 ml Output Total 650 ml Balance 100 ml 720 ml -200 ml Results Result Diagram: 11/20/16 0939 11/20/16 0939 Results 24 hrs Laboratory Tests Test 11/20/16 09:39 Anion Gap 15 Band Neutrophils % 1.0 Blood Morphology Comment Blood Urea Nitrogen 9 Calcium Level 8.9 Carbon Dioxide Level 24 Chloride Level 106 Creatinine 0.83 Eosinophils # 0.4 Eosinophils % 4.0 Glucose Level 105 Hematocrit 30.8 L Hemoglobin 9.6 L INR International Normalized Ratio 2.14 Lymphocytes # 2.3 Lymphocytes % 23.0 Magnesium Level 1.8 Mean Corpuscular Hemoglobin 24.9 L Mean Corpuscular Hemoglobin Concent 31.3 L Mean Corpuscular Volume 79.6 L Mean Platelet Volume 8.6 Monocytes # 0.4 Monocytes % 4.0 Neutrophils # 6.8 Neutrophils % 68.0 Phosphorus Level 2.5 Platelet Count 574 H Potassium Level 2.9 *L Prothrombin Time 24.1 H Prothrombin Time Ratio 1.9 Red Blood Count 3.87 L Red Cell Distribution Width 24.0 H Sodium Level 142 White Blood Count 10.0 Medications Medications Current Medications Acetaminophen (Tylenol Tab) 650 mg Q4H PRN PO PAIN AND OR ELEVATED TEMP; Start 11/15/16 at 19:30 Alprazolam (Xanax) 0.25 mg Q6H PRN PO ANXIETY Last administered on 11/19/16 06 :00; Admin Dose 0.25 MG; Start 11/15/16 at 19:30 Atorvastatin Calcium (Lipitor) 10 mg HS PO Last administered on 11/19/16 20:57 ; Admin Dose 10 MG; Start 11/15/16 at 21:00 Benzonatate (Tessalon) 200 mg TID PO Last administered on 11/20/16 08:38; Admin Dose 200 MG; Start 11/15/16 at 21:00 Diltiazem HCl (Cardizem Cd) 120 mg DAILY PO Last administered on 11/20/16 08: 40; Admin Dose 120 MG; Start 11/16/16 at 09:00 Docusate Sodium (Colace) 100 mg BID PRN PO CONSTIPATION; Start 11/15/16 at 19: 30 Guaifenesin/ Codeine Phosphate (Robitussin Ac Liquid Cup) 5 ml Q4H PRN PO COUGH Last administered on 11/20/16 02:55; Admin Dose 5 ML; Start 11/15/16 at 19:30 Lansoprazole (Prevacid) 30 mg DAILY@06 PO Last administered on 11/20/16 06:10 ; Admin Dose 30 MG; Start 11/16/16 at 06:00 Latanoprost (Xalatan) 1 drop HS BOTH EYES Last administered on 11/19/16 20:57 ; Admin Dose 1 DROP; Start 11/15/16 at 21:00 Lisinopril (Zestril) 10 mg DAILY PO Last administered on 11/20/16 08:40; Admin Dose 10 MG; Start 11/16/16 at 09:00 Morphine Sulfate (morphine) 1 mg Q4H PRN IV PAIN; Start 11/15/16 at 19:30 Morphine Sulfate (morphine) 2 mg Q4H PRN IV SEVERE PAIN LEVEL 7-10 Last administered on 11/20/16 02:56; Admin Dose 2 MG; Start 11/15/16 at 20:00 Ondansetron HCl 4 mg 4 mg Q6H PRN IV NAUSEA AND/OR VOMITING; Start 11/15/16 at 20:00 Piperacillin Sod/ Tazobactam Sod (Zosyn 3.375gm/ 100 ml (Pmx)) 100 ml @ 200 mls /hr Q8 IVPB Last administered on 11/20/16 06:10; Admin Dose 200 MLS/HR; Start 11/15/16 at 22:00 Polyethylene Glycol (Miralax) 17 gm DAILY PRN PO CONSTIPATION; Start 11/15/16 at 20:00 Warfarin Sodium (Coumadin) 1 mg DAILY@17 PO Last administered on 11/19/16 17: 34; Admin Dose 1 MG; Start 11/16/16 at 17:00 Zolpidem Tartrate (Ambien) 5 mg HS PRN PO INSOMNIA Last administered on 00:41; Admin Dose 5 MG; Start 11/15/16 at 20:00 Furosemide (Lasix) 40 mg DAILY PO Last administered on 11/20/16 08:39; Admin Dose 40 MG; Start 11/20/16 at 09:00 Gabapentin (Neurontin) 300 mg BID PO ; Start 11/20/16 at 21:00 GARRICK PARKINSON NP Nov 20, 2016 13:05
[2016-11-20] MEDS: WARFARIN 1 MG TAB PO SCH (17:10)
[2016-11-20 20:25] VITALS: BP 142/61; RESP 19
[2016-11-20] MEDS: ATORVASTATIN 10 MG TAB PO SCH (20:58)
[2016-11-20] MEDS: LATANOPROST 0.005% 2.5 ML OPH BOTH EYES SCH (20:58)
[2016-11-20] MEDS: GABAPENTIN 300 MG CAP PO SCH (20:58)
[2016-11-20] MEDS ORDERED: GABAPENTIN 100 MG CAP PO SCH (21:00)
--- NOTE | 2016-11-20 21:40 | PN ---
Date/Time of Note Date/Time of Note DATE: 11/20/16 TIME: 21:40 Assessment/Plan Lines/Catheters IV Catheter Type (from [facility]): Saline Lock Ta in Place (from [facility]): No Assessment/Plan Chief Complaint/Hosp Course 1. Micro-perforated diverticulitis sealed and healed. Diverticulosis. s/p Abx. -bowel regimen -eventual laparoscopic resection of this site as outpt 2. 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 Adnexal lesions. -oncology f/u. . 3. Left lacunar infarct with right-sided weakness. Currently stable. -physical therapy. -medical optimization 4. Chronic atrial fibrillation. -medical optimization, rate control, and anticoagulation. 5. Anemia without evidence of acute blood loss. Continue close observation. Thank you, Problems: Subjective 24 Hr Interval Summary Feeling better overall. No abdominal pain. Flatus and BM. She denies any fevers or chills. Some nausea but no vomiting. No chest pain. No shortness of breath. No visual or neurologic changes that are acute. No cough. No dysuria. No abnormal discharge. Exam/Review of Systems Vital Signs Vitals Vital Signs Date Time Temp Pulse Resp B/P Pulse Ox O2 Delivery O2 Flow Rate FiO2 11/20/16 20:25 97.5 83 19 142/61 95 11/20/16 05:28 2.0 Intake and Output 11/19/16 11/19/16 11/20/16 15:00 23:00 07:00 Intake Total 100 ml 720 ml 450 ml Output Total 650 ml Balance 100 ml 720 ml -200 ml Exam Free Text/Dictation GENERAL: No acute distress, comfortable. HEENT: Pupils are equal, reactive. No scleral icterus. NECK: Supple, no crepitus, no JVD. PULMONARY: Normal respiratory effort. No wheezing. CARDIAC: S1, S2 present. ABDOMEN: Soft and tender in the lower quadrant. No rebound, no guarding, not rigid. EXTREMITIES: Minimal edema. VASCULAR: Capillary refill is 2 seconds. NEUROLOGIC: Alert, oriented, moves all 4 extremities grossly. Results Result Diagram: 11/20/16 0939 11/20/16 0939 CRYS CORCORAN MD Nov 20, 2016 21:40
[2016-11-21] MEDS: LANSOPRAZOLE 30 MG CAP PO SCH (06:29)
[2016-11-21 08:00] VITALS: BP 120/70; PULSE 75; RESP 18
--- NOTE | 2016-11-21 09:20 | PN ---
DATE: 11/21/2016 CARDIOLOGY FOLLOWUP SUBJECTIVE: No new cardiac event. No chest pain or pressure. MEDICATIONS: Reviewed. PHYSICAL EXAMINATION: VITAL SIGNS: Temperature 97.5, heart rate of 83, blood pressure 140/60, respiration rate of 19, sat urating 95%. HEENT: Normocephalic, . CARDIOVASCULAR: Irregularly irregular. PULMONARY: With no wheezes. GASTROINTESTINAL: Soft. No rebound. EXTREMITIES: Trivial edema. NEUROLOGIC: Comfortably sleeping. ASSESSMENT AND PLAN: 1. Atrial fibrillation, chronic anticoagulation. 2. Diverticulitis. 3. Hypertension. 4. History of cerebrovascular accident. RECOMMENDATIONS: Continue with the Coumadin. Continue with the current heart rate controlled. Heart rate currently stable. Dictated By: OSMIN PERES/AMADOU Conf#: [id number] DID#: [id number] CC: CRISTIANO JJ DO;*EndCC*
[2016-11-21] MEDS: GABAPENTIN 300 MG CAP PO SCH (09:27)
[2016-11-21] MEDS: BENZONATATE 100 MG CAP PO SCH ×2 (09:27→16:53)
[2016-11-21] MEDS: DILTIAZEM (CD) 120 MG CAP PO SCH (09:28)
[2016-11-21] MEDS: LISINOPRIL 10 MG TAB PO SCH (09:28)
[2016-11-21] MEDS: FUROSEMIDE 40 MG TAB PO SCH (09:29)
[2016-11-21 09:30] VITALS: BP 125/75; PULSE 80; RESP 18
[2016-11-21] MEDS: morphine 2 MG INJ IV PRN (09:31)
--- NOTE | 2016-11-21 12:51 | CONS ---
Date/Time of Note Date/Time of Note DATE: 11/21/16 TIME: 12:50 Consult Date/Type/Reason Admit Date/Time Nov 15, 2016 at 17:33 Type of Consultation: ID Ordering Provider: CRISTIANO JJ DO Subjective c/o right sided chest pain this morning Objective pulm- cta ekg-afib Vital Signs Date Time Temp Pulse Resp B/P Pulse Ox O2 Delivery O2 Flow Rate FiO2 11/21/16 09:30 80 18 125/75 99 Room Air 11/21/16 08:00 98.2 11/21/16 06:29 2.0 Intake and Output 11/20/16 11/20/16 11/21/16 14:59 22:59 06:59 Intake Total 480 ml 500 ml Balance 480 ml 500 ml Results/Medications Result Diagram: 11/20/1693811/20/1639 Medications Current Medications Acetaminophen (Tylenol Tab) 650 mg Q4H PRN PO PAIN AND OR ELEVATED TEMP; Start 11/15/16 at 19:30 Alprazolam (Xanax) 0.25 mg Q6H PRN PO ANXIETY Last administered on 11/19/16 06 :00; Admin Dose 0.25 MG; Start 11/15/16 at 19:30 Atorvastatin Calcium (Lipitor) 10 mg HS PO Last administered on 11/20/16 20:58 ; Admin Dose 10 MG; Start 11/15/16 at 21:00 Benzonatate (Tessalon) 200 mg TID PO Last administered on 11/21/16 09:27; Admin Dose 200 MG; Start 11/15/16 at 21:00 Diltiazem HCl (Cardizem Cd) 120 mg DAILY PO Last administered on 11/21/16 09: 28; Admin Dose 120 MG; Start 11/16/16 at 09:00 Docusate Sodium (Colace) 100 mg BID PRN PO CONSTIPATION; Start 11/15/16 at 19: 30 Guaifenesin/ Codeine Phosphate (Robitussin Ac Liquid Cup) 5 ml Q4H PRN PO COUGH Last administered on 11/20/16 02:55; Admin Dose 5 ML; Start 11/15/16 at 19:30 Lansoprazole (Prevacid) 30 mg DAILY@06 PO Last administered on 11/21/16 06:29 ; Admin Dose 30 MG; Start 11/16/16 at 06:00 Latanoprost (Xalatan) 1 drop HS BOTH EYES Last administered on 11/20/16 20:58 ; Admin Dose 1 DROP; Start 11/15/16 at 21:00 Lisinopril (Zestril) 10 mg DAILY PO Last administered on 11/21/16 09:28; Admin Dose 10 MG; Start 11/16/16 at 09:00 Morphine Sulfate (morphine) 1 mg Q4H PRN IV PAIN Last administered on 14:46; Admin Dose 1 MG; Start 11/15/16 at 19:30 Morphine Sulfate (morphine) 2 mg Q4H PRN IV SEVERE PAIN LEVEL 7-10 Last administered on 11/21/16 09:31; Admin Dose 2 MG; Start 11/15/16 at 20:00 Ondansetron HCl (Zofran Inj) 4 mg Q6H PRN IV NAUSEA AND/OR VOMITING; Start at 20:00 Polyethylene Glycol (Miralax) 17 gm DAILY PRN PO CONSTIPATION; Start 11/15/16 at 20:00 Warfarin Sodium (Coumadin) 1 mg DAILY@17 PO Last administered on 11/20/16 17: 10; Admin Dose 1 MG; Start 11/16/16 at 17:00 Zolpidem Tartrate (Ambien) 5 mg HS PRN PO INSOMNIA Last administered on 00:41; Admin Dose 5 MG; Start 11/15/16 at 20:00 Furosemide (Lasix) 40 mg DAILY PO Last administered on 11/21/16 09:29; Admin Dose 40 MG; Start 11/20/16 at 09:00 Gabapentin (Neurontin) 300 mg BID PO Last administered on 11/21/16 09:27; Admin Dose 300 MG; Start 11/20/16 at 21:00 Assessment/Plan Additional Assessment/Plan Rehab- Left frontal lacunar infarct cerebrovascular accident with right-sided weakness; BHT with improving facial echymosis; sacral peripheral neuropathy Hold therapies due to chest pain CP- EKG, CXR, labs Microperforation of diverticulitis History of lymphosarcoma of the abdomen. Atrial fibrillation. Hypertension-monitor History of cerebrovascular accident with good functional recovery. History of myocardial infarction. JEIMY GARRETT MD Nov 21, 2016 12:51
--- NOTE | 2016-11-21 13:36 | RADRPT ---
PROCEDURE: XR Chest. CLINICAL INDICATION: Chest pain. TECHNIQUE: Single frontal view. COMPARISON: 11/19/2016. FINDINGS: There is mild atelectasis at the lung bases, unchanged. The lungs are otherwise clear. The heart is enlarged. There is calcification in the aorta consistent with atherosclerosis. There is no pleural effusion. There is no pneumothorax. IMPRESSION: 1. No change from 11/19/2016. RPTAT: QQ .Juice Gayle MD, MD Date Time Electronically viewed and signed by .Juice Gayle MD, MD on 11/21/2016 13:36 .R/
--- NOTE | 2016-11-21 14:15 | PN ---
DATE: 11/21/2016 SUBJECTIVE: This morning, the patient still working with physical therapy is complaining of left-si ded weakness, headaches and left visual diplopia. The patient after stopping physical therapy went to bed rest. The patient's symptoms clinically improved over the course of 5 minutes. She states h er blurred vision has resolved. Weakness has improved. No other acute events noted. No hemoptysis , hematemesis or hematochezia. OBJECTIVE: VITAL SIGNS: Blood pressure 120/75, respiration 18, pulse 80, temperature 98.2. HEENT: Head is normocephalic. NECK: Supple. HEART: Regular rate. LUNGS: Show diminished breath sounds at the base. ABDOMEN: Soft, nontender to palpation. No rebound or guarding. EXTREMITIES: Negative for clubbing, cyanosis, no edema. DERMATOLOGIC: No rashes. MUSCULOSKELETAL: No joint effusions. NEUROLOGIC: No change in exam. MEDICATIONS: The patient's medications have been reviewed. LABORATORY DATA: From 11/20/2016 showed sodium 142, potassium 2.9. White count 10.9, hemoglobin 9. 6, hematocrit 30.8, platelet count is 574. ASSESSMENT AND PLAN: 1. Acute left-sided weakness. Etiology may be secondary to transient ischemic attack versus a recu rrent stroke. Plan is to get a stat CT scan of the brain. We will continue Coumadin as patient's I NR is currently at goal. We will consider neurologic evaluation. The patient's symptoms have been i mproving. We will monitor closely. 2. Acute diverticulitis with perforated sigmoid colon. The patient is currently stable. Continue current treatment plan. The patient is status post antibiotic therapy. 3. Acute lacunar infarct with left-sided weakness. The patient may have experienced of recurrent c erebrovascular accident versus transient ischemic attack. Repeat CT scan is pending stated above. Continue current medical management. 4. Chronic atrial, well-controlled. The patient is on Coumadin. INR is at goal. 5. Hypertension. Blood pressure is controlled. Continue current blood pressure regimen. 6. 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 Continue to monit or. May have underlying recurrence per patient. We will workup as an outpatient study. 7. Neuropathy. Continue Neurontin at current dose. 8. Dyslipidemia. Continue statin therapy. 9. Continue to monitor H and H levels. 10. Anxiety disorder. Continue Xanax. 11. Hyponatremia, resolved. 12. GI and deep venous thrombosis prophylaxis. Continue proton pump inhibitor and Coumadin. Dictated By: CRISTIANO ALVAREZ/AMADOU Conf#: [id number] DID#: [id number]
--- NOTE | 2016-11-21 15:30 | RADRPT ---
Vent Rate: 84 bpm RR Interval: 0 msec RI Interval: 0 msec QRS Duration: 74 msec QT Interval: 334 msec QTC Interval: 394 msec P-R-T [place]: 0 - -26 - 35 degrees Atrial fibrillation with a competing junctional pacemaker Abnormal ECG Electronically Signed By: Fabien Sykes [id number]
[2016-11-21 16:14] LABS: POTASSIUM 3.4 mmol/L (3.5-5.1)
[2016-11-21 16:16] LABS: CREATININE 0.96 mg/dl (0.44-1.00)
[2016-11-21 16:18] LABS: CALCIUM 9.2 mg/dl (8.4-10.2)
[2016-11-21 16:26] LABS: HEMATOCRIT 30.8 % (37.0-47.0); HEMOGLOBIN 9.6 g/dl (12.0-16.0); MEAN CORPUSCULAR HEMOGLOBIN 24.4 pg (29.0-33.0); MEAN CORPUSCULAR HGB CONC 31.1 g/dl (32.0-37.0); MEAN CORPUSCULAR VOLUME 78.6 fl (82.0-101.0); MEAN PLATELET VOLUME 8.6 fl (7.4-10.4); PLATELET COUNT 617 10^3/UL (140-440); RED BLOOD COUNT 3.93 10^6/ul (4.20-5.40); RED CELL DISTRIBUTION WIDTH 23.3 % (11.5-14.5); UNCORRECTED WBC 12.7 10^3/ul (4.8-10.8); WHITE BLOOD COUNT 12.7 10^3/ul (4.8-10.8)
[2016-11-21 16:36] LABS: CONDITION 1; LH ANALYZER COMMENTS 1
[2016-11-21] MEDS: WARFARIN 1 MG TAB PO SCH (16:54)
[2016-11-21] MEDS ORDERED: HYDROmorphONE 1 MG/ML SYG IV PRN (17:00)
[2016-11-21] MEDS ORDERED: HYDROmorphONE 1 MG/ML SYG IM PRN ×2 (17:00→21:00)
[2016-11-21 17:30] LABS: ANISOCYTOSIS 3+; EOSINOPHILS # 0.1 10^3/ul (0.0-0.5); MICROCYTOSIS 1+; NEUTROPHIL # 10.5 10^3/ul (1.6-7.5); POIKILOCYTOSIS 2+
[2016-11-21 17:31] LABS: HYPOCHROMASIA 3+; PLATELET ESTIMATE PLT APPEAR INCREASED
--- NOTE | 2016-11-21 17:40 | RADRPT ---
PROCEDURE: CT Brain without contrast. CLINICAL INDICATION: Stroke TECHNIQUE: A CT of the brain was performed on a [employer] 64-slice CT scanner utilizing axial imaging from the skull base through the vertex without IV contrast. Multiplanar reformatted images were made. Images were reviewed on a PACS workstation. The CTDIvol is 50.08 mGy and the DLP is 817 .78 mGycm. One of the following 3 dose reduction techniques were used: Automated exposure control; adjustment of the mA and/or kV according to patient size; or use of iterative reconstruction technique. COMPARISON: None available FINDINGS: There is no intracranial hemorrhage, mass effect, or midline shift. No extra-axial fluid collection is seen. The ventricles and sulci are age appropriate. Mild diffuse volume loss is present. Decre ased attenuation is present in the bilateral subcortical white matter, bilateral centrum semiovale, and bilateral periventricular white matter compatible with mild chronic microvascular ischemic disea se. A wedge-shaped area of decreased attenuation is present in the right parietal deep white matter concerning for an acute non hemorrhagic infarct. Recommend brain MRI with diffusion to further kanwal luate. Vascular calcifications are present of the intracranial internal carotid arteries. The visualized scalp and calvarium are normal. The bilateral orbits are normal. The bilateral para nasal sinuses, mastoid air cells and middle ear cavities are clear. IMPRESSION: 1. Acute appearing non hemorrhagic right parietal lobe deep white matter infarct. Recommend diffusi on weighted MRI to further evaluate. 2. Mild chronic microvascular ischemic disease and mild diffuse volume loss. 3. Mild atherosclerotic vascular disease A call report was made to patient's nurse, Faith Polo, at 11/21/2016 5:31:56 PM following the comp letion of the examination by the undersigned. RPTAT: HDC .Nancy Mckeon MD, MD Date Time Electronically viewed and signed by .Nancy Mckeon MD, MD on 11/21/2016 17:40 .C/
[2016-11-21 18:00] VITALS: BP 130/78; RESP 18
[2016-11-21 19:00] VITALS: BP 128/70; PULSE 88; RESP 17
--- NOTE | 2016-11-21 19:19 | PN ---
DATE: PSYCHOLOGY -- INDIVIDUAL SESSION -- [id number] This is a followup on a patient who was originally seen on 11/07/2016. The patient had been transfe rred off of the acute rehabilitation unit to the medical floor and has been returned back. The js ent was seen in bed. The patient was on oxygen. The patient said that she felt fine until this mor pamela but then had a racing heart, and then she said she feels like she may have had another small st roke. The patient was concerned about this and frightened that she is not getting better. The js ent does want to return home and wants to leave the hospital but also knows that she is not able to do so at the present time. The patient is motivated to help herself, and she does want to get out o f the hospital as soon as it is possible. I worked with the patient supportively to try to help enc ourage her to continue to try and work on her emotional issues as well as the physical issues to be able to recover and be discharged from the program. Dictated By: MARTINE BRYAN PHD TOM/AMADOU Conf#: [id number] DID#: [id number]
--- NOTE | 2016-11-29 10:58 | DS ---
DATE OF ADMISSION: 11/15/2016 DATE OF DISCHARGE: 11/21/2016 ADMISSION DIAGNOSES: 1. Left frontal lacunar infarct cerebrovascular accident with right-sided weakness. 2. Microperforation of diverticulitis. 3. History of lymphosarcoma of the abdomen. 4. Blunt head trauma with facial abrasions. 5. Peripheral neuropathy. 6. Atrial fibrillation. 7. Hypertension. 8. History of cerebrovascular accident with good functional recovery. 9. History of myocardial infarction. 10. Impairments in self-care, mobility and cognition. DISCHARGE DIAGNOSES: 1. New cerebrovascular accident. 2. Left frontal lacunar infarct cerebrovascular accident with right-sided weakness. 3. Microperforation of diverticulitis. 4. History of lymphosarcoma of the abdomen. 5. Blunt head trauma with facial abrasions. 6. Peripheral neuropathy. 7. Atrial fibrillation. 8. Hypertension. 9. History of cerebrovascular accident with good functional recovery. 10. History of myocardial infarction. 11. Impairments in self-care, mobility and cognition. HOSPITAL COURSE: The patient was admitted for comprehensive interdisciplinary acute rehab and was m aking steady functional gains during the course of the stay. The patient progressed from an initial moderate assist for self-care and mobility tasks and progressed to the point of minimal to contact guard assist for self-care and mobility tasks. On the day of discharge, the patient was, however, n oted to have some right-sided chest pain in addition to increased general weakness. A head CT was p erformed and did demonstrate a new CVA in the right parietal lobe. The patient was transferred to [facility] for further care and workup. CONDITION ON DISCHARGE: Serious. Dictated By: JEIMY VIVAS/AMADOU Conf#: [id number] DID#: [id number]
== END 2016-11-21 20:55 | disposition short-term general hospital (02) | DRG 65 ==
LOC: VRC 17:33
PROVIDERS: ADMIT Physical Medicine & Rehabilitation; ATTEND Internal Medicine Nephrology
PROC: F07Z5ZZ Bed Mobility Treatment (ICD-10-PCS; principal; 2016-11-15)
PROC: F07Z8ZZ Transfer Training Treatment (ICD-10-PCS; 2016-11-15)
PROC: F07Z9ZZ Gait Training/Functional Ambulation Treatment (ICD-10-PCS; 2016-11-15)
PROC: F08Z0ZZ Bathing/Showering Techniques Treatment (ICD-10-PCS; 2016-11-15)
PROC: F08Z1ZZ Dressing Techniques Treatment (ICD-10-PCS; 2016-11-15)
PROC: F08Z2ZZ Grooming/Personal Hygiene Treatment (ICD-10-PCS; 2016-11-15)
DX: I63.8 Other cerebral infarction (principal); G81.91 Hemiplegia, unspecified affecting right dominant side; N17.9 Acute kidney failure, unspecified; R65.10 Systemic inflammatory response syndrome (SIRS) of non-infectious origin without acute organ dysfunction; G62.9 Polyneuropathy, unspecified; N39.0 Urinary tract infection, site not specified; K57.20 Diverticulitis of large intestine with perforation and abscess without bleeding; E87.1 Hypo-osmolality and hyponatremia; I48.2 Chronic atrial fibrillation; G81.94 Hemiplegia, unspecified affecting left nondominant side; G89.4 Chronic pain syndrome; E78.5 Hyperlipidemia, unspecified; I10 Essential (primary) hypertension; I25.2 Old myocardial infarction; D64.9 Anemia, unspecified; F41.9 Anxiety disorder, unspecified; H40.9 Unspecified glaucoma; H53.2 Diplopia; S09.90XD Unspecified injury of head, subsequent encounter; X58.XXXD Exposure to other specified factors, subsequent encounter; S00.81XD Abrasion of other part of head, subsequent encounter; R07.89 Other chest pain; R53.81 Other malaise; R60.0 Localized edema; R51 Headache; Z85.72 Personal history of non-Hodgkin lymphomas; Z86.718 Personal history of other venous thrombosis and embolism; Z86.711 Personal history of pulmonary embolism; Z92.3 Personal history of irradiation; Z79.01 Long term (current) use of anticoagulants
CPT/HCPCS: 70450; 71010; 80048; 80053; 81001; 81003; 83735; 84100; 85025; 85610; 87081; 87086; 92507; 92610; 93005; 95852; 97110; 97112; 97116; 97163; 97167; 97530; 97535; 97542; J1170; J2270; J2543

== ENCOUNTER 2016-11-21 21:30 | Inpatient (IN) | payer MEDICARE, OTHER ==
[~2016-11-21] VITALS: Ht 160 cm; Wt 57.8 kg
[2016-11-21 21:00] VITALS: BP 134/53; PULSE 95; RESP 18
[2016-11-21 21:22] VITALS: Ht 160 cm; Wt 57.8 kg
[~2016-11-21 21:30] MED LIST changes: -COU75 PO
[2016-11-21 21:34] VITALS: PULSE 83
[2016-11-21] MEDS ORDERED: POLYETHYLENE GLYCOL 17 GM PACKET PO PRN (23:00)
[2016-11-21] MEDS ORDERED: ONDANSETRON 4 MG INJ IV PRN (23:00)
[2016-11-21] MEDS: BENZONATATE 100 MG CAP PO SCH (23:16)
[2016-11-21] MEDS ORDERED: DOCUSATE SODIUM 100 MG CAP PO PRN (23:30)
[2016-11-21] MEDS ORDERED: ACETAMINOPHEN 325 MG TAB PO PRN (23:30)
[2016-11-21] MEDS ORDERED: GUAIFENESIN/CODEINE 5ML CUP PO PRN (23:30)
[2016-11-21] MEDS: GABAPENTIN 300 MG CAP PO SCH (23:49)
[2016-11-21] MEDS: LATANOPROST 0.005% 2.5 ML OPH BOTH EYES SCH (23:49)
[2016-11-21] MEDS: ATORVASTATIN 10 MG TAB PO SCH (23:49)
[2016-11-21] MEDS: HYDROmorphONE 1 MG/ML SYG IM PRN (23:57)
[2016-11-22] VITALS (11 sets, daily range): BP systolic 125–156; BP diastolic 64–78; PULSE 83–170; RESP 18–20
[2016-11-22] MEDS: LANSOPRAZOLE 30 MG CAP PO SCH (05:23)
[2016-11-22] MEDS: HYDROmorphONE 1 MG/ML SYG IM PRN (05:24)
[2016-11-22] MEDS: LISINOPRIL 10 MG TAB PO SCH (08:53)
[2016-11-22] MEDS: DILTIAZEM (CD) 120 MG CAP PO SCH (08:54)
[2016-11-22] MEDS: BENZONATATE 100 MG CAP PO SCH ×3 (08:58→20:32)
[2016-11-22] MEDS: GABAPENTIN 300 MG CAP PO SCH ×2 (08:58→20:31)
[2016-11-22] MEDS: CLOPIDOGREL 75 MG TAB PO SCH (08:58)
[2016-11-22] MEDS ORDERED: FUROSEMIDE 40 MG TAB PO SCH (09:00)
[2016-11-22] MEDS ORDERED: DIGOXIN 500 MCG INJ IV ONE (09:00)
--- NOTE | 2016-11-22 09:13 | PN ---
DATE: 11/22/2016 CARDIOLOGY FOLLOWUP SUBJECTIVE: Discussed with the staff, discussed with Dr. Keenan. The rhythm strip was reviewed an d noted. The patient with episodes of CVA. Had right arm numbness and weakness yesterday followed by headache. Seems to have improved now. Denies any chest pain or pressure, denies any palpitation s to me. MEDICATIONS: Reviewed. PHYSICAL EXAMINATION: VITAL SIGNS: Temperature 98.1, heart rate of 95, blood pressure 125/69, respiration rate of 20, sat urating 98%. HEENT: Normocephalic, atraumatic. Pupils are equal. CARDIOVASCULAR: Irregularly irregular. PULMONARY: No wheezes, no rhonchi. GASTROINTESTINAL: Soft, nontender. EXTREMITIES: Trivial edema. NEUROLOGIC: Awake, responds appropriately. PSYCHIATRIC: Appears to be calm and pleasant. LABORATORY: WBC of 12.7, hemoglobin 9.6, platelet 617. Sodium 143, potassium 3.4, BUN of 57, creat inine 0.[address] yesterday shows acute appearing nonhemorrhagic right parietal lobe deep white matter infarc t. ASSESSMENT AND PLAN: 1. Acute cerebrovascular accident and recurrent cerebrovascular accident. 2. Atrial fibrillation. 3. Hypertension. 4. Debility. 5. Dyslipidemia. RECOMMENDATIONS: We will continue with the statin. I will hold the blood pressure medication for b lood pressure less than 140 to 150 given her acute CVA as well for permissive hypertension. We will discontinue the Lasix for now for the same reason. We will continue with the Coumadin and adjust I NR. We will continue the Coumadin and adjust Coumadin based on the INR level. Dictated By: OSMIN PERES/AMADOU Conf#: [id number] DID#: [id number] CC: CRISTIANO KEENAN DO;*EndCC*
[2016-11-22 10:00] LABS: POTASSIUM 3.9 mmol/L (3.5-5.1)
[2016-11-22 10:02] LABS: BASOPHIL # 0.1 10^3/ul (0.0-0.1); BASOPHILS % 0.7 % (0.0-2.0); CREATININE 0.79 mg/dl (0.44-1.00); EOSINOPHILS # 0.3 10^3/ul (0.0-0.5); EOSINOPHILS % 2.9 % (0.0-7.0); HEMATOCRIT 32.2 % (37.0-47.0); HEMOGLOBIN 9.5 g/dl (12.0-16.0); LYMPHOCYTES # 2.7 10^3/ul (0.8-2.9); LYMPHOCYTES % 23.2 % (15.0-51.0); MEAN CORPUSCULAR HEMOGLOBIN 23.8 pg (29.0-33.0); MEAN CORPUSCULAR HGB CONC 29.5 g/dl (32.0-37.0); MEAN CORPUSCULAR VOLUME 80.5 fl (82.0-101.0); MONOCYTE # 1.8 10^3/ul (0.3-0.9); MONOCYTES % 15.1 % (0.0-11.0); NEUTROPHIL # 6.6 10^3/ul (1.6-7.5); NEUTROPHILS % 56.9 % (39.0-77.0); NUCLEATED RED BLOOD CELLS # 0.1 10^3/ul (0.0-0.0); NUCLEATED RED BLOOD CELLS% 0.4 /100WBC (0.0-0.0); RED CELL DISTRIBUTION WIDTH 23.4 % (11.5-14.5); WHITE BLOOD COUNT 11.6 10^3/ul (4.8-10.8)
[2016-11-22 10:03] LABS: CALCIUM 9.6 mg/dl (8.4-10.2)
[2016-11-22 10:13] LABS: PLATELET COUNT 705 10^3/UL (140-415)
--- NOTE | 2016-11-22 10:46 | HP ---
DATE OF ADMISSION: 11/21/2016 CHIEF COMPLAINT: Sudden right-sided weakness, possible acute cerebrovascular accident. HISTORY OF PRESENT ILLNESS: This is a 71-year-old female with a past medical history of chronic atr ial fibrillation, on Coumadin, a history of hypertension, a history of glaucoma, a history of liposa rcoma diagnosed at age 17, status post radiation therapy and surgical resection, who was initially a dmitted to [facility] approximately 4 to 5 weeks ago for shortness of breath. At that t [facility] the patient was admitted. During her stay she developed sudden weakness on her right side. A C T scan of the brain that was initially done showed evidence of an old infarct. The patient, however , had a new MRI of the brain which showed evidence of left frontal lobe lacunar infarct. Carotid ul trasound and MRA was performed, which was negative for any significant stenosis. The patient's hosp ital course at that time was further complicated with right blurry vision and right temporal headach es. The patient was evaluated by rheumatology. A biopsy was performed, but was negative for eviden ce of temporal arteritis. The patient was subsequently stabilized and transferred over to [facility] for continued care. While at [facility] acute rehab the patient suddenly developed abdominal pain. A CT scan was performed, which showed evidence of a perforated diverticulitis of the sigmoid colon. T he patient was subsequently transferred to telemetry, where she was placed on IV antibiotics and see n by general surgeon, Dr. Coulter. The patient was treated with conservative care, no surgery perfo rmed. The patient clinically improved and was transferred back to [facility] acute rehab t o continue rehabilitation. While at [facility] the patient was clinically stable until yesterday, when she developed a sudden headache, right-sided weakness, numbness, and slurred speech. The patient oliver d a stat CT scan of the brain which showed an acute-appearing nonhemorrhagic right parietal lobe inf arct. Given these findings, in the setting the patient's clinical presentation, concern was for a n ew stroke. The patient was transferred to telemetry for further evaluation. Upon my evaluation of the patient at this time, the patient is complaining of a mild headache. She states her numbness an d weakness on her right side has improved significantly. Denies any hemoptysis, hemetemesis or darius tochezia. PAST MEDICAL HISTORY: As stated above, a history of chronic atrial fibrillation, a history of CVA, hypertension, history of glaucoma, a history of liposarcoma. PAST SURGICAL HISTORY: Previous tumor resection. ALLERGIES: PATIENT IS ALLERGIC TO: 1. INFLUENZA VACCINE. 2. LACTULOSE. FAMILY HISTORY: No family history of kidney disease or heart disease. SOCIAL HISTORY: She does not drink, smoke or do drugs. MEDICATIONS: The patient's medications have been reviewed. REVIEW OF SYSTEMS: A 14-point review of systems was conducted. Pertinent positives as stated in th e HPI, otherwise negative. PHYSICAL EXAMINATION: VITAL SIGNS: Blood pressure 125/69, respirations 20, pulse 96, temperature 98.1. HEENT: Head is normocephalic. Pupils are reactive to light. NECK: Supple. HEART: Irregularly irregular. LUNGS: Showed diminished breath sounds at the base. ABDOMEN: Soft, nontender to palpation. No rebound or guarding. EXTREMITIES: Negative for clubbing or cyanosis. No edema. DERMATOLOGIC: No rashes. MUSCULOSKELETAL: Have no joint effusion. NEUROLOGIC: The patient has right-sided weakness. LABORATORY DATA: Currently pending. ASSESSMENT AND PLAN: This is a 71-year-old female who presents with: 1. Possible acute cerebrovascular accident. The patient had sudden onset of right-sided weakness. A CT scan of the brain shows acute nonhemorrhagic right parietal lobe deep white matter infarct. T he patient is currently stable. Plan at this point is to get MRI/MRA of the brain and a neurology c onsultation will be placed. The patient has been on Coumadin. Will continue. Goal INR is between 2 to 3. Plavix has been added by the data abstractor, Dr. Garcia. Will continue to monitor closely. Continue neuro checks q.6h. 2. Acute diverticulitis, with a perforated sigmoid colon. The patient is clinically improving. Co ntinue to monitor. 3. Recent cerebrovascular accident of the left frontal lobe. Will continue the current medical man agement. The patient may have suffered a new stroke. Will continue workup as stated above. 4. Hypertension. Continue the current blood pressure regimen. 5. Chronic atrial fibrillation. Continue the current medical management. The patient's INR is at goal. Continue Coumadin. 6. History of liposarcoma. The patient is status post surgical resection and chemotherapy. Contin ue to monitor. Recurrence may be present. Will continue workup in the outpatient setting. 7. Dyslipidemia. Continue statin therapy. 8. Anxiety disorder. Continue Xanax. 9. Neuropathy. Continue Neurontin. 10. Gastrointestinal and deep venous thrombosis prophylaxis. Continue PPI and Coumadin. Dictated By: CRISTIANO ALVAREZ/AMADOU Conf#: [id number] DID#: [id number]
--- NOTE | 2016-11-22 11:25 | CONS ---
Date/Time of Note Date/Time of Note DATE: 11/22/16 TIME: 11:12 Assessment/Plan Assessment/Plan Chief Complaint/Hosp Course 71 year old female with history of afib on Coumadin, recent admission few weeks ago to outside hospital for left frontal lobe infarct now with sub-acute appearing right post central gyrus infarct. Yesterday she complained of right sided numbness and headaches, now resolved. -MRI Brain w/o contrast, MRA Head/Neck ordered -Recheck fasting lipid panel and hemoglobin a1c for optimization of secondary risk factors -ECHO with bubble study -maintain normotension, based on Head CT appearance infarction is likely more sub-acute -may continue on antiplatelet now on plavix and Coumadin, adjust to therapeutic dosing -DVT ppx on Coumadin continue PT/OT therapies -will continue to follow Problems: Consultation Date/Type/Reason Admit Date/Time Nov 21, 2016 at 22:57 Date of Consultation: Nov 22, 2016 Type of Consultation: Neurology Reason for Consultation evaluate for new CVA Referring Provider: CRISTIANO JJ DO Hx of Present Illness 71 year old female with history of chronic afib on Coumadin, HTN, 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 She also reported right blurred vision and right sided headaches evaluated for temporal arteritis and seen by rheumatology, tx to [facility] OF FRONT [facility] for further care. During admission to acute rehab she developed abdominal pain dx with perforated diverticulitis managed conservatively did not require surgical intervention. Yesterday she complained of right sided numbness sensation on her arm followed by headaches, she reports symptoms were similar to her previous presentation of stroke. MRI Brain is pending to r/o possibility of new infarction. INR from 11/[address] showed hypodensity likely subacute infarction right post central gyrus region. right sided headaches right arm numbness Past Medical History reported history of DVT, PE, Afib glaucoma Social History Smoking Status: Never smoker Exam/Review of Systems Vital Signs Vitals Vital Signs Date Time Temp Pulse Resp B/P Pulse Ox O2 Delivery O2 Flow Rate FiO2 11/22/16 08:06 95 11/22/16 08:03 98.1 20 125/69 98 11/21/16 21:00 Nasal Cannula 2.0 Exam awake and alert oriented to self and examiner NAD names and repeats follows 3 step commands no aphasia CN: MIRIAN, VFF blinks to threat appropriately, V1-V3 reportedly decreased on right sided of her face smiles symmetric palate upgoing uvula midline scm/trap 5/5 strength tongue midline Motor: lifts arms and legs full strength 5/5 no drift noted in extremities Sensory: intact to DSS intact throughout to all modalities Coordination: no FTN ataxia Reflexes 2+ UE absent KJ and AJ toes are downgoing Results Result Diagram: 11/22/1692811/22/16928 Results 24 hrs Laboratory Tests Test 11/22/16 09:29 Anion Gap 18 H Basophils # 0.1 Basophils % 0.7 Blood Urea Nitrogen 11 Calcium Level 9.6 Carbon Dioxide Level 26 Chloride Level 104 Creatinine 0.79 Eosinophils # 0.3 Eosinophils % 2.9 Glucose Level 93 Hematocrit 32.2 L Hemoglobin 9.5 L Lymphocytes # 2.7 Lymphocytes % 23.2 Mean Corpuscular Hemoglobin 23.8 L Mean Corpuscular Hemoglobin Concent 29.5 L Mean Corpuscular Volume 80.5 L Mean Platelet Volume 10.0 Monocytes # 1.8 H Monocytes % 15.1 H Neutrophils # 6.6 Neutrophils % 56.9 Nucleated Red Blood Cells # 0.1 H Nucleated Red Blood Cells % 0.4 H Platelet Count 705 #H Potassium Level 3.9 Red Blood Count 4.00 L Red Cell Distribution Width 23.4 H Sodium Level 144 White Blood Count 11.6 H Medications Medications Current Medications Hydralazine HCl (Apresoline) 50 mg Q6H PRN PO ELEVATED BLOOD PRESSURE; Start at 23:00 Ondansetron HCl (Zofran Inj) 4 mg Q6H PRN IV NAUSEA AND/OR VOMITING; Start at 23:00 Polyethylene Glycol (Miralax) 17 gm DAILY PRN PO CONSTIPATION; Start 11/21/16 at 23:00 Warfarin Sodium (Coumadin) 1 mg DAILY@17 PO ; Start 11/22/16 at 17:00 Zolpidem Tartrate (Ambien) 5 mg HS PRN PO INSOMNIA; Start 11/21/16 at 23:00 Gabapentin (Neurontin) 300 mg BID PO Last administered on 11/22/16t 08:58; Admin Dose 300 MG; Start 11/21/16 at 23:11 Guaifenesin/ Codeine Phosphate (Robitussin Ac Liquid Cup) 5 ml Q4H PRN PO COUGH ; Start 11/21/16 at 23:30 Lansoprazole (Prevacid) 30 mg DAILY@06 PO Last administered on 11/22/16 05:23 ; Admin Dose 30 MG; Start 11/22/16 at 06:00 Latanoprost (Xalatan) 1 drop QHS BOTH EYES Last administered on 11/21/16 23:49 ; Admin Dose 1 DROP; Start 11/21/16 at 23:13 Lisinopril (Zestril) 10 mg DAILY PO ; Start 11/22/16 at 09:00 Acetaminophen (Tylenol Tab) 650 mg Q4H PRN PO PAIN AND OR ELEVATED TEMP; Start 11/21/16 at 23:30 Alprazolam (Xanax) 0.25 mg Q6H PRN PO ANXIETY; Start 11/21/16 at 23:00 Atorvastatin Calcium (Lipitor) 10 mg DAILY@21 PO Last administered on 23:49; Admin Dose 10 MG; Start 11/21/16 at 23:16 Benzonatate (Tessalon) 200 mg TID PO Last administered on 11/22/16 08:58; Admin Dose 200 MG; Start 11/21/16 at 23:16 Diltiazem HCl (Cardizem Cd) 120 mg DAILY PO ; Start 11/22/16 at 09:00 Docusate Sodium (Colace) 100 mg BID PRN PO CONSTIPATION; Start 11/21/16 at 23: 30 Hydromorphone HCl (Dilaudid) 0.5 mg Q4H PRN IV PAIN; Start 11/22/16 at 05:40 Clopidogrel Bisulfate (plaVIX) 75 mg DAILY PO Last administered on 11/22/16 08 :58; Admin Dose 75 MG; Start 11/22/16 at 09:00 MERI MONCADA MD Nov 22, 2016 11:25
--- NOTE | 2016-11-22 16:42 | RADRPT ---
PROCEDURE: MRA Neck without contrast. CLINICAL INDICATION: CVA. TECHNIQUE: An MRA of the major cervical arteries was performed utilizing axial 2D time of flight, 3-D pjlq-yx-[id number] through the carotid bifurcations, and dynamic contrast enhanced 3-D MR angiograph y technique. Source and MIP images were reviewed. COMPARISON: No prior studies are available for comparison. FINDINGS: The origins of the great vessels off the aortic arch are patent without significant stenosis. The c ommon carotid and internal carotid arteries are patent without hemodynamically significant stenosis by NASCET criteria. Direct measurements of vessel diameters was made in reference to measurements of the distal internal carotid artery diameter. the left vertebral artery is dominant. Bilateral isabella tebral arteries are patent without high-grade stenosis. IMPRESSION: 1. Patent major neck arteries. RPTAT: HH .Demetrio Peña MD, MD Date Time Electronically viewed and signed by .Demetrio Peña MD, MD on 11/22/2016 16:42 .N/
[2016-11-22] MEDS ORDERED: WARFARIN 1 MG TAB PO SCH (17:00)
--- NOTE | 2016-11-22 17:15 | RADRPT ---
PROCEDURE: MRA Brain. CLINICAL INDICATION: CVA. TECHNIQUE: An MRA of the brain was performed with and without intravenous contrast utilizing the f ollowing sequences: 3-D iidz-am-sopwtq images through the intracranial vasculature with post process ed maximal intensity projections in multiple planes. Following the uneventful administration of 10 c c Magnevist. Post processed and maximal intensity projections were obtained and all images were rev iewed on a [employer] PACS system. COMPARISON: Brain MRI of the same day. FINDINGS: The petrous, cavernous, and supraclinoid internal carotid artery segments are normal in caliber with out evidence of significant stenosis. The A2 segment of left anterior cerebral arteries is small in caliber likely hypoplastic. The proximal anterior cerebral and middle cerebral arteries are patent without significant stenosis. There is predominant origin of right posterior cerebral artery with hypoplastic right P1 segment. The intradural vertebral arteries, basilar artery and posterio r cerebral arteries are patent without evidence of significant focal stenosis. No aneurysms are iden tified. IMPRESSION: 1. The A2 segment of left anterior cerebral arteries is small in caliber likely hypoplastic. 2. Predominant origin of right posterior cerebral artery with hypoplastic right P1 segment, a natomical variation. 3. Otherwise patent major intracranial arteries. RPTAT: HH .Demetrio Peña MD, Date Time Electronically viewed and signed by .Demetrio Peña MD, MD on 11/22/2016 16:49 .N/
--- NOTE | 2016-11-22 17:15 | RADRPT ---
PROCEDURE: MRI Brain without and with contrast. CLINICAL INDICATION: CVA. TECHNIQUE: An MRI of the brain was performed utilizing the following sequences: Sagittal T1-weigh noni, axial T2-weighted, axial FLAIR, axial T1, coronal GRE axial diffusion-weighted with ADC mapping . Following the uneventful administration of 10 cc Magnevist, postcontrast axial and coronal T1-weig hted images were obtained. Images were viewed on a PACS workstation. COMPARISON: Brain CT 11/21/2016. FINDINGS: There is 2 mm focus of restricted diffusion in the left pre central gyrus consistent with acute/rece nt infarct. There is old wedge-shape infarct likely in the right parietal lobe in right MCA / QUARTZ MOUNTER wa tershed distribution. There is no intracranial hemorrhage, mass effect, or midline shift. No extra-axial fluid collection is seen. The ventricles and sulci are moderately enlarged indicative of volume loss. There are moderate foci of T2 and FLAIR hyperintensity in the periventricular, deep, and subcortical white matter, which are nonspecific in etiology but likely reflect chronic small vessel ischemic ch anges. The gradient echo images reveal no areas of susceptibility artifact to suggest blood degrada tion products or abnormal calcification. No abnormal intraparenchymal, meningeal or ependymal enhan cement is seen. No abnormal intracranial vascular flow voids are noted. The pituitary and sella reveal no abnormali ty. The suprasellar cistern is clear. The visualized paranasal sinuses are clear. The mastoid air cells are clear. IMPRESSION: 1. Acute/recent 2 mm infarct in the left pre central gyrus. 2. Old wedge-shape infarct in the right parietal lobe likely in right MCA / QUARTZ MOUNTER watershed distribut ion. 3. No acute intracranial hemorrhage or mass. No intracranial enhancing abnormality. 4. Moderate chronic small vessel ischemic changes. 5. Moderate generalized cerebral volume loss. Critical result: A call report was made and above findings were discussed and acknowledged by CLEMENTINE antoine on 11/22/2016 4:52 PM. RPTAT: HH .Demetrio Peña MD, MD Date Time Electronically viewed and signed by .Demetrio Peña MD, MD on 11/22/2016 16:59 .N/
[2016-11-22] MEDS: ATORVASTATIN 10 MG TAB PO SCH (20:31)
[2016-11-22] MEDS: LATANOPROST 0.005% 2.5 ML OPH BOTH EYES SCH (20:32)
--- NOTE | 2016-11-22 21:41 | RADRPT ---
PROCEDURE: CT brain without contrast CLINICAL INDICATION: Worsening of weakness, recent stroke. Patient on Coumadin TECHNIQUE: A CT of the brain was performed utilizing axial sections from the skull base through th e vertex without contrast. Sagittal and coronal images were also reformatted. The exam CTDIvol = 49. 35 mGy and DLP = 681.76 mGy-cm. COMPARISON: MRI 11/22/2016. CT 11/21/2016 FINDINGS: No acute intracranial hemorrhage is identified. There is no mass effect or midline shift. No extra -axial fluid collection is seen. The ventricles and sulci are larger in size and configuration for the patient's provided age of 71 years consistent with advanced generalized atrophy. Diffuse low at tenuation of the periventricular white matter likely reflects chronic small vessel ischemia. Enceph alomalacia within the right parietal lobe at the convexity is consistent with an old infarct. The t iny 2 mm lacunar infarct in the left pre central gyrus seen on the MRI is not evident. Randhawa-white d ifferentiation is preserved with no findings to suggest an acute ischemic infarct. Chronic lacunar infarct in the superior left cerebral hemisphere. No acute density alteration withi n the gemma or right cerebellar hemisphere. The fourth ventricle is midline.. The osseous structures are unremarkable. The mastoid air cells and visualized paranasal sinuses are clear. Moderate atherosclerotic calcification of the cavernous internal carotid arteries is present RPTAT:HJJR IMPRESSION: 1. Advanced atrophy for the patient's provided age with no evidence of acute intracranial abnormalit y or mass effect. 2. Tiny ischemic infarct seen on the MRI within the left precentral gyrus is not evident on the CT. 3. Extensive chronic small vessel ischemic disease of the cerebral white matter with chronic right parietal and left superior cerebellar hemispheric infarcts again noted. Physician Reymundo Date Time Electronically viewed and signed by Physician Reymundo on 11/22/2016 21:40 /
[2016-11-22] MEDS: HYDROmorphONE 1 MG/ML SYG IV PRN (22:28)
[2016-11-23] VITALS (13 sets, daily range): BP systolic 115–162; BP diastolic 56–90; PULSE 80–157; RESP 16–19
[2016-11-23] MEDS ORDERED: DIPHENHYDRAMINE 50 MG INJ IV PRN
[2016-11-23] MEDS: LANSOPRAZOLE 30 MG CAP PO SCH (05:34)
[2016-11-23 07:22] LABS: ADD SCAN DIFF NO
[2016-11-23 07:34] LABS: ABNORMAL IP MESSAGE 1; BASOPHIL # 0.1 10^3/ul (0.0-0.1); BASOPHILS % 0.9 % (0.0-2.0); EOSINOPHILS # 0.6 10^3/ul (0.0-0.5); EOSINOPHILS % 5.3 % (0.0-7.0); HEMATOCRIT 31.4 % (37.0-47.0); HEMOGLOBIN 9.2 g/dl (12.0-16.0); LYMPHOCYTES # 2.9 10^3/ul (0.8-2.9); LYMPHOCYTES % 26.5 % (15.0-51.0); MEAN CORPUSCULAR HEMOGLOBIN 23.5 pg (29.0-33.0); MEAN CORPUSCULAR HGB CONC 29.3 g/dl (32.0-37.0); MEAN CORPUSCULAR VOLUME 80.3 fl (82.0-101.0); MEAN PLATELET VOLUME 10.9 fl (7.4-10.4); MONOCYTE # 1.5 10^3/ul (0.3-0.9); MONOCYTES % 13.6 % (0.0-11.0); NEUTROPHIL # 5.8 10^3/ul (1.6-7.5); NUCLEATED RED BLOOD CELLS% 0.4 /100WBC (0.0-0.0); PLATELET COUNT 579 10^3/UL (140-415); RED BLOOD COUNT 3.91 10^6/ul (4.20-5.40); RED CELL DISTRIBUTION WIDTH 23.9 % (11.5-14.5)
[2016-11-23 07:55] LABS: INR 1.61; PROTIME 19.3 Sec (12.2-14.2); PT RATIO 1.5
[2016-11-23 07:56] LABS: POTASSIUM 3.6 mmol/L (3.5-5.1)
[2016-11-23 07:58] LABS: CREATININE 0.65 mg/dl (0.44-1.00)
[2016-11-23 07:59] LABS: ALBUMIN/GLOBULIN RATIO 0.96; BILIRUBIN,INDIRECT 0.2 mg/dl (0-1.1); BILIRUBIN,TOTAL 0.2 mg/dl (0.2-1.3); CALCIUM 9.1 mg/dl (8.4-10.2); TOTAL PROTEIN 6.1 g/dl (6.1-8.1)
[2016-11-23 08:00] LABS: MAGNESIUM 1.9 mg/dl (1.7-2.5)
[2016-11-23] MEDS: LISINOPRIL 10 MG TAB PO SCH (08:40)
[2016-11-23] MEDS: GABAPENTIN 300 MG CAP PO SCH ×2 (08:47→20:01)
[2016-11-23] MEDS: BENZONATATE 100 MG CAP PO SCH ×3 (08:47→20:01)
[2016-11-23] MEDS: CLOPIDOGREL 75 MG TAB PO SCH (08:47)
[2016-11-23] MEDS: DILTIAZEM (CD) 120 MG CAP PO SCH (08:48)
[2016-11-23 09:56] LABS: CHOL/HDL RATIO 3.6 RATIO
[2016-11-23 10:01] LABS: CK-MB 0.27 ng/ml (0.0-2.4)
--- NOTE | 2016-11-23 10:04 | CONS ---
Date/Time of Note Date/Time of Note DATE: 11/23/16 TIME: 09:59 Consult Date/Type/Reason Admit Date/Time Nov 21, 2016 at 22:57 Initial Consult Date 11/22/16 Type of Consultation: Neurology Ordering Provider: CRISTIANO JJ DO Subjective Headache, more weakness last night, repeated CT negative for acute changes Objective Vital Signs Date Time Temp Pulse Resp B/P Pulse Ox O2 Delivery O2 Flow Rate FiO2 11/23/16 08:51 98.1 93 18 141/83 96 11/23/16 08:08 Room Air 11/22/16 19:00 2.0 Intake and Output 11/22/16 11/22/16 11/23/16 15:00 23:00 07:00 Intake Total 450 ml Balance 450 ml Exam awake and alert O x 3 NAD names and repeats follows 3 step commands no aphasia CN: MIRIAN, VFF blinks to threat appropriately, normal sensation smiles symmetric palate upgoing uvula midline scm/trap 5/5 strength tongue midline Motor: lifts arms and legs full strength 5/5 no drift noted in extremities Sensory: intact to touch intact throughout to all modalities Coordination: no FTN ataxia Reflexes 2+ UE absent KJ and AJ toes are downgoing Results/Medications Result Diagram: 11/23/16 0639 11/23/16 0639 Results 24 hrs Laboratory Tests Test 11/23/16 05:00 11/23/16 06:39 Phosphorus Level 3.2 Alanine Aminotransferase (ALT/SGPT) 34 Albumin 3.0 L Albumin/Globulin Ratio 0.96 Alkaline Phosphatase 178 H Anion Gap 16 Aspartate Amino Transf (AST/SGOT) 40 Basophils # 0.1 Basophils % 0.9 Blood Urea Nitrogen 9 Calcium Level 9.1 Carbon Dioxide Level 23 Chloride Level 108 Creatinine 0.65 Direct Bilirubin 0.00 Eosinophils # 0.6 H Eosinophils % 5.3 Globulin 3.10 Glucose Level 77 Hematocrit 31.4 L Hemoglobin 9.2 L INR International Normalized Ratio 1.61 Indirect Bilirubin 0.2 Lymphocytes # 2.9 Lymphocytes % 26.5 Magnesium Level 1.9 Mean Corpuscular Hemoglobin 23.5 L Mean Corpuscular Hemoglobin Concent 29.3 L Mean Corpuscular Volume 80.3 L Mean Platelet Volume 10.9 H Monocytes # 1.5 H Monocytes % 13.6 H Neutrophils # 5.8 Neutrophils % 53.0 Nucleated Red Blood Cells # 0.0 Nucleated Red Blood Cells % 0.4 H Platelet Count 579 H Potassium Level 3.6 Prothrombin Time 19.3 H Prothrombin Time Ratio 1.5 Red Blood Count 3.91 L Red Cell Distribution Width 23.9 H Sodium Level 143 Total Bilirubin 0.2 Total Protein 6.1 White Blood Count 11.0 H Medications Current Medications Hydralazine HCl (Apresoline) 50 mg Q6H PRN PO ELEVATED BLOOD PRESSURE; Start at 23:00 Ondansetron HCl (Zofran Inj) 4 mg Q6H PRN IV NAUSEA AND/OR VOMITING; Start at 23:00 Polyethylene Glycol (Miralax) 17 gm DAILY PRN PO CONSTIPATION; Start 11/21/16 at 23:00 Zolpidem Tartrate (Ambien) 5 mg HS PRN PO INSOMNIA; Start 11/21/16 at 23:00 Gabapentin (Neurontin) 300 mg BID PO Last administered on 11/23/16 08:47; Admin Dose 300 MG; Start 11/21/16 at 23:11 Guaifenesin/ Codeine Phosphate (Robitussin Ac Liquid Cup) 5 ml Q4H PRN PO COUGH ; Start 11/21/16 at 23:30 Lansoprazole (Prevacid) 30 mg DAILY@06 PO Last administered on 11/23/16 05:34 ; Admin Dose 30 MG; Start 11/22/16 at 06:00 Latanoprost (Xalatan) 1 drop QHS BOTH EYES Last administered on 11/22/16 20:32 ; Admin Dose 1 DROP; Start 11/21/16 at 23:13 Lisinopril (Zestril) 10 mg DAILY PO ; Start 11/22/16 at 09:00 Acetaminophen (Tylenol Tab) 650 mg Q4H PRN PO PAIN AND OR ELEVATED TEMP; Start 11/21/16 at 23:30 Alprazolam (Xanax) 0.25 mg Q6H PRN PO ANXIETY; Start 11/21/16 at 23:00 Atorvastatin Calcium (Lipitor) 10 mg DAILY@21 PO Last administered on 20:31; Admin Dose 10 MG; Start 11/21/16 at 23:16 Benzonatate (Tessalon) 200 mg TID PO Last administered on 11/23/16 08:47; Admin Dose 200 MG; Start 11/21/16 at 23:16 Diltiazem HCl (Cardizem Cd) 120 mg DAILY PO Last administered on 11/23/16 08: 48; Admin Dose 120 MG; Start 11/22/16 at 09:00 Docusate Sodium (Colace) 100 mg BID PRN PO CONSTIPATION; Start 11/21/16 at 23: 30 Hydromorphone HCl (Dilaudid) 0.5 mg Q4H PRN IV PAIN Last administered on 22:28; Admin Dose 0.5 MG; Start 11/22/16 at 05:40 Clopidogrel Bisulfate (plaVIX) 75 mg DAILY PO Last administered on 11/23/16 08 :47; Admin Dose 75 MG; Start 11/22/16 at 09:00 Diphenhydramine HCl (Benadryl) 25 mg Q6H PRN IV ITCHING; Start 11/23/16 at 00: 00 Warfarin Sodium (Coumadin) 5 mg DAILY@17 PO ; Start 11/23/16 at 17:00 Assessment/Plan Chief Complaint/Hosp Course A/P: Acute ischemic CVA history of afib on Coumadin. -ECHO with bubble study keep normotensive, euglycemic, cont plavix/coumadin, statin, keep therapeutic INR continue PT/OT therapies Problems: MATILDE JUNIOR MD Nov 23, 2016 10:04
[2016-11-23 10:05] LABS: CREATINE KINASE < 20 IU/L (23-200)
[2016-11-23 10:06] LABS: TROPONIN-I < 0.010 ng/ml (0.00-0.12)
--- NOTE | 2016-11-23 10:47 | PN ---
DATE: 11/23/2016 SUBJECTIVE: The patient is feeling better. Weakness is improving. She had an episode of nausea ye sterday. No other events noted. No hemoptysis, hematemesis or hematochezia. OBJECTIVE: VITAL SIGNS: Blood pressure 141/83, respirations 18, pulse 93, temperature 98.1. HEENT: Head is normocephalic. NECK: Supple. HEART: Regular rate. LUNGS: Show diminished breath sounds at the bases. ABDOMEN: Soft, nontender to palpation. No rebound or guarding. EXTREMITIES: Negative for clubbing, cyanosis. No edema. DERMATOLOGIC: No rashes. MUSCULOSKELETAL: No joint effusions. NEUROLOGIC: No change in exam. MEDICATIONS: The patient's medications have been reviewed. IMAGING: MRI of the brain shows acute left precentral gyrus infarct, an old wedge-shaped right mary ellen etal lobe watershed distribution infarct. MRA showed patent arteries. LABORATORY DATA: Showed a sodium 143, potassium 3.6, BUN 9, creatinine 0.64. White count 11.0, hem oglobin 9.2, hematocrit 31.4, platelet count is 579. ASSESSMENT AND PLAN: 1. Acute left precentral gyrus cerebrovascular accident with right-sided weakness. The patient cli nically improving. Weakness and numbness are resolving. The patient continues to have intermittent headaches. Plan at this point is to continue Coumadin. We will increase dose to 5 mg. Goal INR i s 2 to 3. Continue Plavix. We will follow up with neurology for further recommendations. Continue statin therapy. Monitor blood pressures closely, enabling permissive hypertension. 2. Right parietal lobe infarct. We will continue current medical management. 3. Acute diverticulitis with perforated sigmoid colon. The patient is clinically improved. Contin ue to monitor. Status post antibiotics. 4. Leukocytosis. Etiology may be due to stress demargination. Continue to monitor. The patient i s off antibiotic therapy. 5. Hypertension. Continue current blood pressure regimen. 6. Chronic atrial fibrillation. Continue current medical management. INR is currently subtherapeu tic. We will increase Coumadin and monitor. 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 Contin ue to monitor. 8. Dyslipidemia. Continue statin therapy. 9. Anxiety disorder. Continue Xanax. 10. Neuropathy. Continue Neurontin. 11. Gastrointestinal and deep venous thrombosis prophylaxis. Continue proton pump inhibitor and Co umadin. 12. Anemia. Continue to monitor hemoglobin and hematocrit levels. 13. Thrombocytosis, etiology is likely reactive. Continue to monitor. Dictated By: CRISTIANO ALVAREZ/AMADOU Conf#: [id number] DID#: [id number]
[2016-11-23 13:22] LABS: INR 1.48; PT RATIO 1.4
[2016-11-23] MEDS: WARFARIN 5 MG TAB PO SCH (16:26)
[2016-11-23] MEDS: HYDROmorphONE 1 MG/ML SYG IV PRN (16:27)
[2016-11-23] MEDS ORDERED: DIGOXIN 500 MCG INJ IV ONE (19:30)
[2016-11-23] MEDS: ATORVASTATIN 10 MG TAB PO SCH (20:01)
[2016-11-23] MEDS: LATANOPROST 0.005% 2.5 ML OPH BOTH EYES SCH (20:02)
[2016-11-24] VITALS (12 sets, daily range): BP systolic 120–140; BP diastolic 60–85; PULSE 71–171; RESP 19–20
[2016-11-24] MEDS: HYDROmorphONE 1 MG/ML SYG IV PRN ×3 (01:36→19:29)
[2016-11-24] MEDS: LANSOPRAZOLE 30 MG CAP PO SCH (05:52)
[2016-11-24 07:48] LABS: ADD SCAN DIFF NO
[2016-11-24 07:52] LABS: ABNORMAL IP MESSAGE 1; BASOPHIL # 0.1 10^3/ul (0.0-0.1); BASOPHILS % 0.8 % (0.0-2.0); EOSINOPHILS # 0.4 10^3/ul (0.0-0.5); EOSINOPHILS % 4.2 % (0.0-7.0); HEMATOCRIT 30.6 % (37.0-47.0); HEMOGLOBIN 9.1 g/dl (12.0-16.0); LYMPHOCYTES # 2.9 10^3/ul (0.8-2.9); LYMPHOCYTES % 34.3 % (15.0-51.0); MEAN CORPUSCULAR HEMOGLOBIN 23.9 pg (29.0-33.0); MEAN CORPUSCULAR HGB CONC 29.7 g/dl (32.0-37.0); MEAN CORPUSCULAR VOLUME 80.3 fl (82.0-101.0); MONOCYTE # 1.1 10^3/ul (0.3-0.9); MONOCYTES % 13.3 % (0.0-11.0); NEUTROPHILS % 46.2 % (39.0-77.0); NUCLEATED RED BLOOD CELLS% 0.4 /100WBC (0.0-0.0); PLATELET COUNT 703 10^3/UL (140-415); RED BLOOD COUNT 3.81 10^6/ul (4.20-5.40); RED CELL DISTRIBUTION WIDTH 23.3 % (11.5-14.5); WHITE BLOOD COUNT 8.6 10^3/ul (4.8-10.8)
--- NOTE | 2016-11-24 07:57 | PN ---
DATE: 11/23/2016 SUBJECTIVE: Discussed with the staff. ____ in atrial fibrillation____ response, complained of head ache intermittently, currently is better. MEDICATIONS: Reviewed. OBJECTIVE VITAL SIGNS: Temperature 98.6, heart rate of 90, blood pressure 130/58, respiration rate of 19. HEENT: Normocephalic, atraumatic. Pupils are equal. CARDIOVASCULAR: Irregularly irregular. Systolic murmur. PULMONARY: No wheezes heard. GASTROINTESTINAL: Soft, nontender. EXTREMITIES: Trivial edema. NEUROLOGIC: Awake, responds appropriately. PSYCHIATRIC: Appears to be calm and pleasant. DIAGNOSTIC DATA: Bubble study was negative. LABORATORY: WBC 11.4, hemoglobin 9.2, platelets of 579. Sodium 143, potassium 3.6, BUN of 9, creat inine 0.65, glucose 77. INR has been 12.61. BRAIN MAGNETIC RESONANCE IMAGING: Shows acute, recent, 2-mm infarct in the left precentral gyrus. ASSESSMENT AND PLAN 1. Acute cerebrovascular accident. 2. Atrial fibrillation. 3. Hypertension. 4. ____. 5. Dyslipidemia. RECOMMENDATIONS: Coumadin will be adjusted as per internal medicine. We will allow for permissive hypertension. We will restart digoxin as well to control the heart rate better. Continue to monito r on telemetry. Dictated By: OSMIN PERES/AMADOU Conf#: [id number] DID#: [id number]
[2016-11-24 08:21] LABS: POTASSIUM 4.9 mmol/L (3.5-5.1)
[2016-11-24 08:23] LABS: CREATININE 0.8 mg/dl (0.44-1.00)
[2016-11-24 08:24] LABS: CALCIUM 9.4 mg/dl (8.4-10.2); PHOSPHORUS 3.6 mg/dl (2.5-4.9)
[2016-11-24] MEDS: CLOPIDOGREL 75 MG TAB PO SCH (08:52)
[2016-11-24] MEDS: LISINOPRIL 10 MG TAB PO SCH (08:52)
[2016-11-24] MEDS: GABAPENTIN 300 MG CAP PO SCH ×2 (08:52→21:56)
[2016-11-24] MEDS: BENZONATATE 100 MG CAP PO SCH ×3 (08:53→21:56)
[2016-11-24] MEDS: DILTIAZEM (CD) 120 MG CAP PO SCH (08:53)
--- NOTE | 2016-11-24 10:18 | PN ---
DATE: 11/24/2016 SUBJECTIVE: The patient is stable, no acute events overnight. No fever, chills, nausea, vomiting, shortness of breath. OBJECTIVE: VITAL SIGNS: Blood pressure 132/64, respiration , pulse 62, temperature 98.0. HEENT: Head is normocephalic. NECK: Supple. HEART: Regular rate. LUNGS: Show diminished breath sounds at base. ABDOMEN: Soft, nontender to palpation. No rebound or guarding. EXTREMITIES: Negative for clubbing, cyanosis, or edema. DERMATOLOGIC: No rashes. MUSCULOSKELETAL: No joint effusions. NEUROLOGIC: No change in exam. MEDICATIONS: The patient's medications have been reviewed. LABORATORY DATA: Shows a BMP within normal limits. White count 8.6, hemoglobin 9.1, hematocrit 30. 6, platelet count . INR is pending. ASSESSMENT AND PLAN: 1. Acute left precentral gyrus cerebrovascular accident with right-sided hemiparesis. The patient is clinically improving. Continue current medical management. Continue Plavix, continue Coumadin. INR is not yet at goal. We will follow up INR today and adjust Coumadin dose appropriately. 2. Previous history of right parietal lobe infarct. Continue medical management. 3. Acute diverticulitis with perforated sigmoid colon The patient clinically improving, tolerating p.o. 4. Leukocytosis, resolved. 5. Hypertension. Continue current blood pressure regimen. 6. Chronic atrial fibrillation. Continue current medical management. Follow up with cardiology. 7. 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 Continue to monitor. 8. Dyslipidemia. Continue statin therapy. 9. Anxiety disorder. Continue Xanax. 10. Neuropathy. Continue Neurontin. 11. Anemia. Continue to monitor hemoglobin and hematocrit levels. 12. Thrombocytosis, reactive in nature. Continue to monitor. 13. Gastrointestinal and deep venous thrombosis prophylaxis. Continue proton pump inhibitor and Co umadin. Dictated By: CRISTIANO ALVAREZ/AMADOU Conf#: [id number] DID#: [id number]
[2016-11-24 10:59] LABS: INR 2.84; PROTIME 30.2 Sec (12.2-14.2); PT RATIO 2.4
[2016-11-24] MEDS: DIGOXIN 0.125 MG TAB PO SCH (12:38)
[2016-11-24] MEDS: WARFARIN 5 MG TAB PO SCH (17:20)
[2016-11-24] MEDS ORDERED: HYDROmorphONE 1 MG/ML SYG IV STA (20:18)
[2016-11-24] MEDS: LATANOPROST 0.005% 2.5 ML OPH BOTH EYES SCH (21:00)
[2016-11-24] MEDS: ALPRAZOLAM 0.25 MG TAB PO PRN (21:56)
[2016-11-24] MEDS: ATORVASTATIN 10 MG TAB PO SCH (21:56)
[2016-11-24] MEDS: ZOLPIDEM 5 MG TAB PO PRN (21:56)
[2016-11-25] VITALS (14 sets, daily range): BP systolic 96–145; BP diastolic 53–87; PULSE 30–79; RESP 17–20
[2016-11-25] MEDS: LANSOPRAZOLE 30 MG CAP PO SCH (06:22)
[2016-11-25 07:38] LABS: INR 1.78; PROTIME 20.9 Sec (12.2-14.2); PT RATIO 1.6
[2016-11-25] MEDS: DILTIAZEM (CD) 120 MG CAP PO SCH (08:59)
[2016-11-25] MEDS: BENZONATATE 100 MG CAP PO SCH ×3 (09:00→22:07)
[2016-11-25] MEDS: LISINOPRIL 10 MG TAB PO SCH (09:00)
[2016-11-25] MEDS: CLOPIDOGREL 75 MG TAB PO SCH (09:00)
[2016-11-25] MEDS: GABAPENTIN 300 MG CAP PO SCH ×2 (09:00→22:03)
[2016-11-25] MEDS: LATANOPROST 0.005% 2.5 ML OPH BOTH EYES SCH (09:30)
[2016-11-25] MEDS: HYDROmorphONE 1 MG/ML SYG IV PRN ×2 (09:41→22:13)
--- NOTE | 2016-11-25 10:36 | PN ---
DATE: 11/25/2016 SUBJECTIVE: The patient is stable. No acute events overnight. No fevers, chills, nausea, or vomit ing. No shortness of breath. OBJECTIVE: VITAL SIGNS: Blood pressure 145/66, respiration 18, pulse 75, temperature 97.6. HEENT: Head is normocephalic. NECK: Supple. HEART: Regular rate. LUNGS: Show diminished breath sounds at the base. ABDOMEN: Soft, nontender to palpation without rebound or guarding. EXTREMITIES: Negative for clubbing, cyanosis, no edema. DERMATOLOGIC: No rashes. MUSCULOSKELETAL: No joint effusions. NEUROLOGIC: No change in exam. MEDICATIONS: The patient's medications have been reviewed. LABORATORY DATA: Has been reviewed. No new labs. ASSESSMENT AND PLAN: 1. Acute left precentral gyrus cerebrovascular accident with right-sided weakness. The patient is clinically improving. Continue current medical management. Continue Coumadin and Plavix. 2. Recent history of right parietal lobe infarct. Continue medical management. 3. Hypertension. Continue current blood pressure regimen. 4. Chronic atrial fibrillation. Continue current medical management. 5. 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 Continue to monitor. 6. Status post acute diverticulitis and perforated sigmoid colon. The patient is currently stable. Continue to monitor. 7. Dyslipidemia. Continue statin therapy. 8. Anxiety disorder. Continue Xanax. 9. Neuropathy. Continue Neurontin. 10. Anemia. Continue to monitor hemoglobin and hematocrit levels. 11. Thrombocytosis, reactive in nature. Continue to monitor. 12. Gastrointestinal and deep venous thrombosis prophylaxis. Continue proton pump inhibitor and Co umadin. Dictated By: CRISTIANO ALVAREZ/AMADOU Conf#: [id number] DID#: [id number]
--- NOTE | 2016-11-25 13:28 | CONS ---
Date/Time of Note Date/Time of Note DATE: 11/25/16 TIME: 13:24 Assessment/Plan Assessment/Plan Additional Assessment/Plan CVA Atrial fibrillation Preserved ejection fraction Hypertension -Titrate Coumadin as per INR, we will give higher dose today, continue statin therapy. Dr Garcia to resume care 11/26/2016 Consultation Date/Type/Reason Admit Date/Time Nov 21, 2016 at 22:57 Initial Consult Date 11/22/16 Type of Consultation: cv Referring Provider: CRISTIANO JJ DO 24 HR Interval Summary Free Text/Dictation Denies shortness of breath, chest pain or palpitation Exam/Review of Systems Vital Signs Vitals Vital Signs Date Time Temp Pulse Resp B/P Pulse Ox O2 Delivery O2 Flow Rate FiO2 11/25/16 12:35 69 11/25/16 11:51 97.5 18 103/57 94 11/25/16 00:30 Nasal Cannula 2.0 Intake and Output 11/24/16 11/24/16 11/25/16 15:00 23:00 07:00 Intake Total 350 ml 300 ml Balance 350 ml 300 ml Exam Eating lunch, no apparent distress Constitutional: alert, oriented Head: normocephalic Neck: supple Respiratory: other (Coarse breath sounds bilaterally, no wheezing) Cardiovascular: irregular rhythm, other (S1-S2 heard) Gastrointestinal: bowel sounds, non-tender, soft Extremities: other (Trace) Results Result Diagram: 11/24/1670411/24/16704 Results 24 hrs Laboratory Tests Test 11/25/16 06:20 INR International Normalized Ratio 1.78 Prothrombin Time 20.9 #H Prothrombin Time Ratio 1.6 Medications Medications Current Medications Hydralazine HCl (Apresoline) 50 mg Q6H PRN PO ELEVATED BLOOD PRESSURE; Start at 23:00 Ondansetron HCl (Zofran Inj) 4 mg Q6H PRN IV NAUSEA AND/OR VOMITING; Start at 23:00 Polyethylene Glycol (Miralax) 17 gm DAILY PRN PO CONSTIPATION; Start 11/21/16 at 23:00 Zolpidem Tartrate (Ambien) 5 mg HS PRN PO INSOMNIA Last administered on t 21:56; Admin Dose 5 MG; Start 11/21/16 at 23:00 Gabapentin (Neurontin) 300 mg BID PO Last administered on 11/25/16 09:00; Admin Dose 300 MG; Start 11/21/16 at 23:11 Guaifenesin/ Codeine Phosphate (Robitussin Ac Liquid Cup) 5 ml Q4H PRN PO COUGH ; Start 11/21/16 at 23:30 Lansoprazole (Prevacid) 30 mg DAILY@06 PO Last administered on 11/25/16 06:22 ; Admin Dose 30 MG; Start 11/22/16 at 06:00 Latanoprost (Xalatan) 1 drop QHS BOTH EYES Last administered on 11/25/16 09:30 ; Admin Dose 1 DROP; Start 11/21/16 at 23:13 Lisinopril (Zestril) 10 mg DAILY PO Last administered on 11/25/16 09:00; Admin Dose 10 MG; Start 11/22/16 at 09:00 Acetaminophen (Tylenol Tab) 650 mg Q4H PRN PO PAIN AND OR ELEVATED TEMP; Start 11/21/16 at 23:30 Alprazolam (Xanax) 0.25 mg Q6H PRN PO ANXIETY Last administered on 11/24/16 21 :56; Admin Dose 0.25 MG; Start 11/21/16 at 23:00 Atorvastatin Calcium (Lipitor) 10 mg DAILY@21 PO Last administered on 21:56; Admin Dose 10 MG; Start 11/21/16 at 23:16 Benzonatate (Tessalon) 200 mg TID PO Last administered on 11/25/16 09:00; Admin Dose 200 MG; Start 11/21/16 at 23:16 Diltiazem HCl (Cardizem Cd) 120 mg DAILY PO Last administered on 11/25/16 08: 59; Admin Dose 120 MG; Start 11/22/16 at 09:00 Docusate Sodium (Colace) 100 mg BID PRN PO CONSTIPATION; Start 11/21/16 at 23: 30 Clopidogrel Bisulfate (plaVIX) 75 mg DAILY PO Last administered on 11/25/16 09 :00; Admin Dose 75 MG; Start 11/22/16 at 09:00 Diphenhydramine HCl (Benadryl) 25 mg Q6H PRN IV ITCHING; Start 11/23/16 at 00: 00 Warfarin Sodium (Coumadin) 5 mg DAILY@17 PO Last administered on 11/24/16 17: 20; Admin Dose 5 MG; Start 11/23/16 at 17:00 Digoxin (Digoxin) 0.125 mg DAILY@13 PO Last administered on 11/24/16 12:38; Admin Dose 0.125 MG; Start 11/24/16 at 13:00 Hydromorphone HCl (Dilaudid) 0.5 mg Q2 PRN IV PAIN Last administered on 09:41; Admin Dose 0.5 MG; Start 11/24/16 at 21:00 Angel Mulligan DO Nov 25, 2016 13:28
[2016-11-25] MEDS: DIGOXIN 0.125 MG TAB PO SCH (13:33)
--- NOTE | 2016-11-25 13:57 | CONS ---
Date/Time of Note Date/Time of Note DATE: 11/25/16 TIME: 13:53 Consult Date/Type/Reason Admit Date/Time Nov 21, 2016 at 22:57 Initial Consult Date 11/22/16 Type of Consultation: neurology Ordering Provider: CRISTIANO JJ DO Subjective right fronto-temporal YI 4-5/10 Objective Vital Signs Date Time Temp Pulse Resp B/P Pulse Ox O2 Delivery O2 Flow Rate FiO2 11/25/16 12:35 69 11/25/16 11:51 97.5 18 103/57 94 11/25/16 00:30 Nasal Cannula 2.0 Intake and Output 11/24/16 11/24/16 11/25/16 15:00 23:00 07:00 Intake Total 350 ml 300 ml Balance 350 ml 300 ml Exam awake and alert O x 3 NAD names and repeats follows 3 step commands no aphasia CN: MIRIAN, VFF blinks to threat appropriately, normal sensation smiles symmetric palate upgoing uvula midline scm/trap 5/5 strength tongue midline Motor: lifts arms and legs full strength 5/5 no drift noted in extremities Sensory: intact to touch intact throughout to all modalities Coordination: no FTN ataxia Reflexes 2+ UE absent KJ and AJ toes are downgoing Results/Medications Result Diagram: 11/24/1670411/24/16704 Results 24 hrs Laboratory Tests Test 11/25/16 06:20 INR International Normalized Ratio 1.78 Prothrombin Time 20.9 #H Prothrombin Time Ratio 1.6 Medications Current Medications Hydralazine HCl (Apresoline) 50 mg Q6H PRN PO ELEVATED BLOOD PRESSURE; Start at 23:00 Ondansetron HCl (Zofran Inj) 4 mg Q6H PRN IV NAUSEA AND/OR VOMITING; Start at 23:00 Polyethylene Glycol (Miralax) 17 gm DAILY PRN PO CONSTIPATION; Start 11/21/16 at 23:00 Zolpidem Tartrate (Ambien) 5 mg HS PRN PO INSOMNIA Last administered on 21:56; Admin Dose 5 MG; Start 11/21/16 at 23:00 Gabapentin (Neurontin) 300 mg BID PO Last administered on 11/25/16 09:00; Admin Dose 300 MG; Start 11/21/16 at 23:11 Guaifenesin/ Codeine Phosphate (Robitussin Ac Liquid Cup) 5 ml Q4H PRN PO COUGH ; Start 11/21/16 at 23:30 Lansoprazole (Prevacid) 30 mg DAILY@06 PO Last administered on 11/25/16 06:22 ; Admin Dose 30 MG; Start 11/22/16 at 06:00 Latanoprost (Xalatan) 1 drop QHS BOTH EYES Last administered on 11/25/16 09:30 ; Admin Dose 1 DROP; Start 11/21/16 at 23:13 Lisinopril (Zestril) 10 mg DAILY PO Last administered on 11/25/16 09:00; Admin Dose 10 MG; Start 11/22/16 at 09:00 Acetaminophen (Tylenol Tab) 650 mg Q4H PRN PO PAIN AND OR ELEVATED TEMP; Start 11/21/16 at 23:30 Alprazolam (Xanax) 0.25 mg Q6H PRN PO ANXIETY Last administered on 11/24/16 21 :56; Admin Dose 0.25 MG; Start 11/21/16 at 23:00 Atorvastatin Calcium (Lipitor) 10 mg DAILY@21 PO Last administered on 21:56; Admin Dose 10 MG; Start 11/21/16 at 23:16 Benzonatate (Tessalon) 200 mg TID PO Last administered on 11/25/16 13:32; Admin Dose 200 MG; Start 11/21/16 at 23:16 Diltiazem HCl (Cardizem Cd) 120 mg DAILY PO Last administered on 11/25/16 08: 59; Admin Dose 120 MG; Start 11/22/16 at 09:00 Docusate Sodium (Colace) 100 mg BID PRN PO CONSTIPATION; Start 11/21/16 at 23: 30 Clopidogrel Bisulfate (plaVIX) 75 mg DAILY PO Last administered on 11/25/16 09 :00; Admin Dose 75 MG; Start 11/22/16 at 09:00 Diphenhydramine HCl (Benadryl) 25 mg Q6H PRN IV ITCHING; Start 11/23/16 at 00: 00 Warfarin Sodium (Coumadin) 5 mg DAILY@17 PO Last administered on 11/24/16 17: 20; Admin Dose 5 MG; Start 11/23/16 at 17:00 Digoxin (Digoxin) 0.125 mg DAILY@13 PO Last administered on 11/25/16 13:33; Admin Dose 0.125 MG; Start 11/24/16 at 13:00 Hydromorphone HCl (Dilaudid) 0.5 mg Q2 PRN IV PAIN Last administered on 09:41; Admin Dose 0.5 MG; Start 11/24/16 at 21:00 Warfarin Sodium (Coumadin) 2 mg ONCE@17 ONCE GTB ; Start 11/25/16 at 17:00; Stop 11/25/16 at 17:01 Assessment/Plan Chief Complaint/Hosp Course A/P: Acute ischemic CVA history of afib on Coumadin. keep normotensive, euglycemic, cont plavix/coumadin, statin, keep therapeutic INR continue PT/OT therapies Chronic headaches, right sided, x 2-3 years, s/p recenty TA bipsy, negative per pt Cont symptomatic headache tx Problems: MATILDE JUNIOR MD Nov 25, 2016 13:57
[2016-11-25] MEDS ORDERED: WARFARIN 2 MG TAB GTB ONE (17:00)
[2016-11-25] MEDS: WARFARIN 5 MG TAB PO SCH (17:38)
[2016-11-25] MEDS: ATORVASTATIN 10 MG TAB PO SCH (22:03)
[2016-11-26] VITALS (11 sets, daily range): BP systolic 132–160; BP diastolic 61–105; PULSE 50–90; RESP 16–20
[2016-11-26] MEDS: LANSOPRAZOLE 30 MG CAP PO SCH (05:52)
[2016-11-26 08:01] LABS: INR 2.53; PROTIME 27.6 Sec (12.2-14.2); PT RATIO 2.2
[2016-11-26] MEDS: BENZONATATE 100 MG CAP PO SCH ×3 (09:25→21:06)
[2016-11-26] MEDS: LISINOPRIL 10 MG TAB PO SCH (09:26)
[2016-11-26] MEDS: CLOPIDOGREL 75 MG TAB PO SCH (09:26)
[2016-11-26] MEDS: GABAPENTIN 300 MG CAP PO SCH ×2 (09:26→20:59)
[2016-11-26] MEDS: DILTIAZEM (CD) 120 MG CAP PO SCH (09:26)
[2016-11-26] MEDS: HYDROmorphONE 1 MG/ML SYG IV PRN ×2 (11:06→21:06)
--- NOTE | 2016-11-26 11:58 | PN ---
DATE: 11/26/2016 SUBJECTIVE: The patient is stable, no acute events overnight. No fevers, chills, nausea, vomiting, no shortness of breath. OBJECTIVE: VITAL SIGNS: Blood pressure 132/68, respirations 18, pulse 75, temperature 98.2. HEENT: Head is normocephalic. NECK: Supple. HEART: Regular rate. LUNGS: Show diminished breath sounds at the base. ABDOMEN: Soft, nontender to palpation. No rebound or guarding. EXTREMITIES: Negative for clubbing, cyanosis, no edema. DERMATOLOGIC: No rashes. MUSCULOSKELETAL: No joint effusions. NEUROLOGIC: No change in exam. MEDICATIONS: Have been reviewed. LABORATORY DATA: Has been reviewed. The patient's INR is 2.5. ASSESSMENT AND PLAN: 1. Acute left precentral gyrus cerebrovascular accident with right-sided weakness. The patient is clinically improving. Continue PT, OT. Continue Coumadin and Plavix. INR is currently at goal. 2. Recent right parietal lobe infarct. Continue medical management. 3. Hypertension. Continue current blood pressure regimen. 4. Chronic atrial fibrillation. Continue current treatment plan. 5. History of sarcoma. The patient is status post surgical resection, chemotherapy. Continue to m onitor. 6. Status post acute diverticulitis with perforated sigmoid colon, currently stable. Continue to m onitor. 7. Dyslipidemia. Continue statin therapy. 8. Anxiety disorder. Continue Xanax. 9. Neuropathy. Continue Neurontin. 10. Anemia. Continue to monitor hemoglobin and hematocrit levels. 11. Thrombocytosis, reactive in nature. Continue to monitor. 12. Gastrointestinal and deep venous thrombosis prophylaxis. Continue proton pump inhibitor and Co umadin. Dictated By: CRISTIANO ALVAREZ/AMADOU Conf#: [id number] DID#: [id number]
[2016-11-26] MEDS: DIGOXIN 0.125 MG TAB PO SCH (13:02)
--- NOTE | 2016-11-26 15:10 | RADRPT ---
Echocardiogram Report Patient Name: MATTHEW KAMARA Gender: Female Date: 1945 Study Date: 22-Nov-2016 Chief Psychologist: Magdaleno Bush [facility] Location: 5540 Ref. Physician: MERI MONCADA Quality: Good Procedures: Transthoracic echocardiogram examination. Indications: Cerebrovascular Accident. Findings Atrial Septum: Agitated saline was injected intravenously for microbubble contrast study. No right to left shunt was identified with and with out valsalva maneuver. Conclusions 1.Agitated saline was injected intravenously for microbubble contrast study. No right to left shunt was identified with and with out valsalva maneuver. Electronically Signed By: Nima Garcia 26-Nov-2016 15:09:14 0800 Patient Name: MATTHEW KAMARA Study Date: 22-Nov-[id number]
[2016-11-26] MEDS: WARFARIN 5 MG TAB PO SCH (17:42)
[2016-11-26] MEDS: LATANOPROST 0.005% 2.5 ML OPH BOTH EYES SCH (20:59)
[2016-11-26] MEDS: ATORVASTATIN 10 MG TAB PO SCH (20:59)
--- NOTE | 2016-11-26 21:16 | PN ---
DATE: 11/26/2016 CARDIOLOGY FOLLOWUP SUBJECTIVE: The patient with no chest pain or pressure. No palpitation. Still complains of headac he. Numbness has improved. Rhythm strip was reviewed, remains in atrial fibrillation. Heart rate overall under good control. MEDICATIONS: Reviewed as per medical reconciliation, personally reviewed. PHYSICAL EXAMINATION: VITAL SIGNS: Temperature 97.1, heart rate of 88, blood pressure 133/61, respiration rate of 19, sat urating 99%. HEENT: Normocephalic, atraumatic. Pupils are equal. CARDIOVASCULAR: Irregularly irregular. Systolic murmur. PULMONARY: With no wheezes heard, no rhonchi. RESPIRATORY: Clear. GASTROINTESTINAL: Soft, nontender. EXTREMITIES: With trivial edema. NEUROLOGIC: Awake, responds appropriately. PSYCHIATRIC: Appears to be calm and very pleasant. LABORATORY: INR is 2.53. Sodium 144, potassium 4.9, BUN of 10, creatinine 0.8, glucose of 82. WBC of 8.6, hemoglobin 9.1, platelets of 703. ASSESSMENT AND PLAN: 1. Cerebrovascular accident, recurrent. 2. Atrial fibrillation. 3. Hypertension. 4. Dyslipidemia. 5. Headache, chronic. 6. History of sarcoma. 7. Anemia. 8. Thrombocytosis. RECOMMENDATIONS: We will continue with the Coumadin. Plavix will be continued as well. We will co ntinue with the Cardizem and digoxin for control of the heart rate. INR will be checked periodicall y and adjusted. Okay to transfer to rehabilitation from the cardiac standpoint tomorrow. Dictated By: OSMIN PERES/AMADOU Conf#: [id number] DID#: [id number] CC: CRISTIANO JJ DO;*EndCC*
[2016-11-26] MEDS: ZOLPIDEM 5 MG TAB PO PRN (23:38)
[2016-11-27] VITALS (12 sets, daily range): BP systolic 122–145; BP diastolic 58–80; PULSE 60–96; RESP 18–20
[2016-11-27] MEDS: LANSOPRAZOLE 30 MG CAP PO SCH (04:56)
[2016-11-27 06:31] LABS: INR 3.2; PROTIME 33.2 Sec (12.2-14.2); PT RATIO 2.6
[2016-11-27] MEDS: GABAPENTIN 300 MG CAP PO SCH ×2 (08:45→21:02)
[2016-11-27] MEDS: DILTIAZEM (CD) 120 MG CAP PO SCH (08:45)
[2016-11-27] MEDS: CLOPIDOGREL 75 MG TAB PO SCH (08:45)
[2016-11-27] MEDS: LISINOPRIL 10 MG TAB PO SCH (08:45)
[2016-11-27] MEDS: BENZONATATE 100 MG CAP PO SCH ×3 (08:54→21:02)
[2016-11-27] MEDS: HYDROmorphONE 1 MG/ML SYG IV PRN ×3 (10:14→21:05)
--- NOTE | 2016-11-27 11:04 | PN ---
DATE: 11/27/2016 SUBJECTIVE: The patient is stable, no acute events overnight. No fever, chills, nausea, vomiting. OBJECTIVE: VITAL SIGNS: Blood pressure 143/68, respiratory rate 20, pulse 93, temperature 98.7. HEENT: Head is normocephalic. NECK: Supple. HEART: Regular rate. LUNGS: Show diminished breath sounds at the base. ABDOMEN: Soft, nontender to palpation. No rebound or guarding. EXTREMITIES: Negative for clubbing, cyanosis. No edema. DERMATOLOGIC: No rashes. MUSCULOSKELETAL: No joint effusions. NEUROLOGIC: No change in exam. LABORATORY DATA: Have been reviewed. ASSESSMENT AND PLAN: 1. Acute left precentral gyrus cerebrovascular accident with right-sided weakness. The patient cli nically improved. Continue PT, OT. Continue Coumadin. Continue Plavix. 2. Status post right parietal lobe infarct. Continue medical management. 3. Hypertension. Continue current blood pressure regimen. 4. Chronic atrial fibrillation, controlled. Continue current medical management. 5. 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 The patie nt may have underlying recurrence. Will be managed in outpatient setting. 6. Status post acute diverticulosis with diverticulitis with perforated sigmoid colon, currently st able. Continue to monitor. 7. Dyslipidemia. Continue statin therapy. 8. Anxiety disorder. Continue Xanax. 9. Neuropathy. Continue Neurontin. 10. Anemia. Continue to monitor hemoglobin and hematocrit levels. 11. Thrombocytosis, reactive in nature. Continue to monitor. 12. Gastrointestinal and deep venous thrombosis prophylaxis. Continue proton pump inhibitor and Co umadin. Dictated By: CRISTIANO ALVAREZ/AMADOU Conf#: [id number] DID#: [id number]
[2016-11-27] MEDS: DIGOXIN 0.125 MG TAB PO SCH (14:04)
--- NOTE | 2016-11-27 17:07 | PN ---
DATE: 11/27/2016 CARDIOLOGY FOLLOWUP SUBJECTIVE: The patient remains in atrial fibrillation. Heart rate has remained stable . De nies any chest pain or pressure to me. Had physical therapy and now complaining of fatigue. Also, complaining of numbness around her eyes. MEDICATIONS: Reviewed. PHYSICAL EXAMINATION: VITAL SIGNS: Temperature 97.9, heart rate of 67, blood pressure 122/58, respiratory rate of 20. HEENT: Normocephalic, atraumatic. Pupils are equal. CARDIOVASCULAR: Irregularly irregular. Systolic murmur. PULMONARY: With no wheezes. GASTROINTESTINAL: Soft, nontender. EXTREMITIES: With trivial edema. NEUROLOGIC: Awake, responds appropriately. PSYCHIATRIC: Appears to be calm and pleasant. LABORATORY: INR is 3.2. ASSESSMENT AND PLAN: 1. Recurrent cerebrovascular accident. 2. Chronic atrial fibrillation. 3. Hypertension. 4. History of sarcoma. 5. Status post acute diverticulitis, improved. 6. Anxiety. 7. Neuropathy. 8. Thrombocytosis. RECOMMENDATIONS: We will continue with the current cardiac care. Coumadin is being adjusted. ____ _ is on hold. We will continue with the heart rate control with Cardizem as well as digoxin. Dictated By: OSMIN AGUIRRE MD AV/AMADOU Conf#: [id number] DID#: [id number] CC: CRISTIANO JJ DO;*EndCC*
[2016-11-27] MEDS: ATORVASTATIN 10 MG TAB PO SCH (21:02)
[2016-11-27] MEDS: LATANOPROST 0.005% 2.5 ML OPH BOTH EYES SCH (21:05)
[2016-11-28] VITALS (10 sets, daily range): BP systolic 125–154; BP diastolic 67–73; PULSE 62–96; RESP 18–21
[2016-11-28] MEDS: HYDROmorphONE 1 MG/ML SYG IV PRN (01:25)
[2016-11-28] MEDS: LANSOPRAZOLE 30 MG CAP PO SCH (06:38)
[2016-11-28] MEDS: GABAPENTIN 300 MG CAP PO SCH (09:05)
[2016-11-28] MEDS: CLOPIDOGREL 75 MG TAB PO SCH (09:05)
[2016-11-28] MEDS: ALPRAZOLAM 0.25 MG TAB PO PRN (09:05)
[2016-11-28] MEDS: BENZONATATE 100 MG CAP PO SCH ×2 (09:05→13:33)
[2016-11-28] MEDS: LISINOPRIL 10 MG TAB PO SCH (09:06)
[2016-11-28 09:35] LABS: ADD SCAN DIFF NO
--- NOTE | 2016-11-28 09:39 | PN ---
DATE: 11/28/2016 CARDIOLOGY FOLLOWUP SUBJECTIVE: Discussed with the staff. Rhythm strip was reviewed. The patient remains in atrial fi brillation, heart under very good control. No chest pain or pressure. Still complains of headache, but improved now with the medication. MEDICATIONS: Reviewed. PHYSICAL EXAMINATION: VITAL SIGNS: Temperature 97.6, heart rate of 85, blood pressure 138/69, respiratory rate of 18. HEENT: Normocephalic, atraumatic. Pupils are equal. CARDIOVASCULAR: Irregularly irregular. Systolic murmur. PULMONARY: With no wheezes anteriorly. GASTROINTESTINAL: Soft, nontender. EXTREMITIES: With trivial edema. NEUROLOGIC: Awake, responds appropriately. PSYCHIATRIC: Appears to be calm and pleasant. LABORATORY: Still pending. ASSESSMENT AND PLAN: 1. Atrial fibrillation, chronic, on anticoagulation and Plavix given her recurrent cerebrovascular accident. 2. Recurrent cerebrovascular accident. 3. Hypertension, under good control. 4. History of sarcoma. 5. Status post acute diverticulitis, currently improved. 6. Anxiety. 7. Neuropathy. 8. History of thrombocytosis. RECOMMENDATIONS: INR has been ordered for today. Awaiting the results. We will continue with the rest of cardiac care. Discharge planning is in process. Dictated By: OSMIN PERES/AMADOU Conf#: [id number] DID#: [id number] CC: CRISTIANO JJ DO;*EndCC*
[2016-11-28 09:40] LABS: ABNORMAL IP MESSAGE 1; BASOPHIL # 0.1 10^3/ul (0.0-0.1); BASOPHILS % 1.4 % (0.0-2.0); EOSINOPHILS # 0.2 10^3/ul (0.0-0.5); EOSINOPHILS % 2.7 % (0.0-7.0); HEMATOCRIT 30.6 % (37.0-47.0); HEMOGLOBIN 9.1 g/dl (12.0-16.0); LYMPHOCYTES # 3.1 10^3/ul (0.8-2.9); LYMPHOCYTES % 35.6 % (15.0-51.0); MEAN CORPUSCULAR HEMOGLOBIN 23.6 pg (29.0-33.0); MEAN CORPUSCULAR HGB CONC 29.7 g/dl (32.0-37.0); MEAN CORPUSCULAR VOLUME 79.5 fl (82.0-101.0); MONOCYTE # 1.4 10^3/ul (0.3-0.9); MONOCYTES % 15.7 % (0.0-11.0); NEUTROPHIL # 3.8 10^3/ul (1.6-7.5); NEUTROPHILS % 43.3 % (39.0-77.0); NUCLEATED RED BLOOD CELLS # 0.1 10^3/ul (0.0-0.0); NUCLEATED RED BLOOD CELLS% 0.9 /100WBC (0.0-0.0); PLATELET COUNT 751 10^3/UL (140-415); RED BLOOD COUNT 3.85 10^6/ul (4.20-5.40); WHITE BLOOD COUNT 8.8 10^3/ul (4.8-10.8)
[2016-11-28 09:53] LABS: CREATININE 0.73 mg/dl (0.44-1.00)
[2016-11-28 09:54] LABS: CALCIUM 9.5 mg/dl (8.4-10.2); PHOSPHORUS 3.1 mg/dl (2.5-4.9)
[2016-11-28 09:55] LABS: MAGNESIUM 1.9 mg/dl (1.7-2.5)
[2016-11-28 09:56] LABS: INR 3.03; PROTIME 31.8 Sec (12.2-14.2); PT RATIO 2.5
--- NOTE | 2016-11-28 10:09 | PN ---
DATE: 11/28/2016 SUBJECTIVE: The patient is complaining of a headache. No neurological symptoms. No numbness, no b lurry vision. No other events noted. OBJECTIVE: VITAL SIGNS: Blood pressure is 154/73, respirations 19, pulse 85, temperature 97.9. HEENT: Head is normocephalic. NECK: Supple. HEART: Regular rate. LUNGS: Show diminished breath sounds at the bases. ABDOMEN: Soft, nontender to palpation. No rebound or guarding. EXTREMITIES: Negative for clubbing, cyanosis. No edema. DERMATOLOGIC: No rashes. MUSCULOSKELETAL: No joint effusions. NEUROLOGIC: No change in exam. MEDICATIONS: The patient's medications have been reviewed. LABORATORY DATA: Has been reviewed, currently pending. ASSESSMENT AND PLAN: 1. Acute left precentral gyrus cerebrovascular accident with right-sided weakness. The patient is clinically improving. Continue PT, OT. Continue medical management with Coumadin and Plavix. 2. Status post right parietal infarct. Continue medical management. 3. Hypertension. Continue current blood pressure regimen, adjust as needed. 4. Headaches. Etiology may be multifactorial secondary to recent CVA versus rebound versus opiate induced. We will de-escalate patient's IV Dilaudid. We will start the patient on [place] p.r.n. for pain and monitor closely. If headaches do not improve, will consider repeat CT scan of the head. 5. Chronic atrial fibrillation, currently controlled. Continue current medical management. 6. History of liposarcoma. The patient is status post radiation and chemotherapy. The patient may have underlying recurrence. We will continue to monitor. Will have outpatient followup. 7. Status post acute diverticulitis with perforated sigmoid colon, improved. 8. Dyslipidemia. Continue statin therapy. 9. Anxiety disorder. Continue Xanax. 10. Neuropathy. Continue Neurontin. 11. Anemia. Continue to monitor hemoglobin and hematocrit levels. 12. Thrombocytosis, reactive in nature. Continue to monitor. 13. Gastrointestinal and deep vein thrombosis prophylaxis. Continue proton pump inhibitor, Coumadi n. Dictated By: CRISTIANO ALVAREZ/AMADOU Conf#: [id number] DID#: [id number]
[2016-11-28] MEDS: DILTIAZEM (CD) 120 MG CAP PO SCH (10:44)
[2016-11-28] MEDS: HYDROCODONE/APAP (5/325) TAB PO PRN ×2 (10:44→18:24)
[2016-11-28] MEDS: DIGOXIN 0.125 MG TAB PO SCH (13:35)
--- NOTE | 2016-11-30 11:04 | DS ---
DATE OF ADMISSION: 11/21/2016 DATE OF DISCHARGE: 11/28/2016 HOSPITAL COURSE: This is a 71-year-old female with a past medical history of chronic AFib on Coumad in, history of hypertension, glaucoma, history of liposarcoma, status post radiation and surgical th erapy, initially presented to [facility] 4 to 5 weeks ago for shortness of breath. At [facility] time, patient had a CT scan of brain, which showed evidence of acute infarct. The patient was s ubsequently transferred to [facility]. While at [facility] acut e rehab, the patient developed abdominal pain, developed diverticulitis with perforation. She was t [facility] transferred to a telemetry bed. The patient was treated with IV antibiotics with resolution of her symptoms. She came back to [facility] acute rehab, but then suffered sudden weakness, was diagnosed with a new CVA and was transferred to telemetry. While on telemetry, the patient was seen by neurologist, Dr. Dagoberto Crain. The patient had MRA of the brain which showed finding s consistent with a parietal lobe infarct. The patient was on Coumadin. Plavix was then added to [facility] patient's regimen. The patient underwent physical therapy. She was stabilized and [facility]. At the time of transfer, the patient was stable, i n no acute distress. FINAL DIAGNOSES: 1. Acute left precentral gyrus cerebrovascular accident with right-sided weakness. 2. Status post right parietal infarct. 3. Hypertension. 4. Headaches. 5. Chronic atrial fibrillation. 6. Liposarcoma. 7. Status post acute diverticulitis. 8. Dyslipidemia. 9. Status post perforated sigmoid colon. 10. Anxiety disorder. 11. Neuropathy. 12. Thrombocytosis. CONDITION ON DISCHARGE: At time of discharge, the patient is stable, in no acute distress. FINAL MEDICATIONS: See reconciliation list. Dictated By: CRISTIANO ALVAREZ/AMADOU Conf#: [id number] DID#: [id number]
--- NOTE | 2016-11-30 11:12 | DS ---
DATE OF ADMISSION: 11/21/2016 DATE OF DISCHARGE: 11/28/2016 HOSPITAL COURSE: This is a 71-year-old female with a past medical history of chronic AFib, history of hypertension, glaucoma, history of lymphosarcoma who was recently admitted to [facility] approximately 2 to 3 weeks ago. The patient at that time had shortness of breath, edema. She w as diagnosed with acute CVA and the patient was stabilized and transferred over to [facility] for continued care. While at [facility], the patient was stable un til she started to develop abdominal pain. The patient had a stat CT scan of the abdomen which show ed diverticulitis with perforation of sigmoid colon. The patient was then transferred over to telem etry. While on telemetry, the patient received IV antibiotics. She was seen and evaluated by Dr. Maude branham, general surgeon, who determined no immediate surgery was needed. The patient after having a week's course of conservative care improved. Her abdominal pain improved. She was subsequently tr ansferred back to [facility] to continue care. FINAL DIAGNOSES: 1. Acute diverticulitis with perforated sigmoid colon, improving. 2. History of recent lacunar infarct. 3. Chronic atrial fibrillation. 4. Hypertension. 5. History of lymphosarcoma. 6. Neuropathy. 7. Dyslipidemia. 8. Anemia. 9. Anxiety disorder. At the time of discharge, the patient was stable, in no acute distress. FINAL MEDICATIONS: See reconciliation list. Dictated By: CRISTIANO ALVAREZ/AMADOU Conf#: [id number] DID#: [id number]
== END 2016-11-28 18:55 | DRG 65 ==
LOC: UNDOADMIN 21:30 → MS4 21:30
PROVIDERS: ADMIT Internal Medicine; ATTEND Internal Medicine
DX: I63.9 Cerebral infarction, unspecified (principal); G81.91 Hemiplegia, unspecified affecting right dominant side; I48.2 Chronic atrial fibrillation; G62.9 Polyneuropathy, unspecified; K57.20 Diverticulitis of large intestine with perforation and abscess without bleeding; I10 Essential (primary) hypertension; D47.3 Essential (hemorrhagic) thrombocythemia; Z66 Do not resuscitate; E78.5 Hyperlipidemia, unspecified; Z79.01 Long term (current) use of anticoagulants; Z92.3 Personal history of irradiation; Z85.831 Personal history of malignant neoplasm of soft tissue; Z86.73 Personal history of transient ischemic attack (TIA), and cerebral infarction without residual deficits; Z86.718 Personal history of other venous thrombosis and embolism; Z86.711 Personal history of pulmonary embolism; F41.9 Anxiety disorder, unspecified; D64.9 Anemia, unspecified; R51 Headache; Z92.21 Personal history of antineoplastic chemotherapy
CPT/HCPCS: 70450; 70544; 70549; 70553; 80048; 80053; 80061; 82550; 82553; 83735; 84100; 84484; 85025; 85610; 93308; 97116; 97162; 97530; J1170

== ENCOUNTER 2016-12-13 17:18 | Emergency (ER) | payer MEDICARE, OTHER ==
[~2016-12-13] VITALS: Ht 162.6 cm; Wt 59.1 kg
[2016-12-13 18:19] VITALS: Ht 162.6 cm; Wt 59.1 kg
[2016-12-13] MEDS ORDERED: CRAN425C PO (18:40)
[2016-12-13] MEDS ORDERED: UDROBAC PO (18:40)
[2016-12-13] MEDS ORDERED: HYDR-906 PO (18:41)
[2016-12-13] MEDS ORDERED: ONDA-43 PO (18:41)
[2016-12-13] MEDS ORDERED: DIL1I IV (18:42)
[2016-12-13] MEDS ORDERED: MAGN400O4 PO (18:43)
[2016-12-13] MEDS ORDERED: DULR PR (18:44)
[2016-12-13] MEDS ORDERED: FLEETPED PR (18:44)
[2016-12-13] MEDS ORDERED: BENZ100C70 PO (18:46)
[2016-12-13] MEDS ORDERED: GABA300C PO (18:46)
[2016-12-13] MEDS ORDERED: LATA2.5D9 BOTH EYES (18:47)
[2016-12-13] MEDS ORDERED: WARF1TAB47 PO (18:48)
--- NOTE | 2016-12-13 19:06 | RADRPT ---
PROCEDURE: CT Head without. CLINICAL INDICATION: Fall, head injury. TECHNIQUE: The study was performed utilizing a multi-slice, multidetector CT scanner. Direct spira l 1 mm axial sections were obtained through the head without the use of intravenous contrast materia l. 1 or more of the following dose reduction techniques were utilized: Automated exposure control, adjustment of the mA and/or kV according to patient's size, iterative reconstruction technique. Co patel and sagittal reformations were obtained. The images were reviewed on a PACS workstation. RADIATION DOSE: CTDIvol: 43.1 mGyDLP: 720.2 mGy-cm COMPARISON: CT head 11/22/2016, 11/21/2016, MRI brain 11/22/2016 FINDINGS: There is no intracranial hemorrhage, extra-axial fluid collection, mass lesion, midline shift or hyd rocephalus. There is stable mild to moderate prominence of the cerebral sulci, lateral and third ve ntricles. There is stable moderate patchy and confluent periventricular and subcortical white matte r hypodensity. There is mild to moderate arteriosclerotic calcification of the parasellar internal carotid arteries. The barker-white matter differentiation is preserved. The basal cisterns are paten t. The midline structures are intact. There is cessation bilateral petrous apices without evidence of inflammatory changes, normal variant. There is stable appearance of hypodensity involving the r ight posterior frontal lobe (axial series image 18), suggestive of remote prior infarct. There is a stable small well-circumscribed hypodensity in the left cerebellar hemisphere, likely related to re mote prior lacunar infarct. The orbits, calvarium and extracranial soft tissues are normal in appearance. The visualized paranasal sinuses, mastoid air cells and middle ear cavities are normally aerated. IMPRESSION: 1. No significant interval change compared to 11/22/2016. No acute intracranial abnormality. No i ntracranial hemorrhage, extra-axial fluid collection, mass lesion or hydrocephalous. 2. Stable mild to moderate peripheral and central cerebral volume loss. 3. Stable moderate patchy and confluent periventricular and subcortical white matter hypodensity, l ikely related to chronic microangiopathic changes. 4. Stable encephalomalacia in the posterior right frontal lobe suggestive of remote prior infarct. 5. Stable remote left cerebellar hemisphere lacunar infarct. RPTAT: HGAS .Chance Guzman MD, MD Date Time Electronically viewed and signed by .Chance Guzman MD, MD on 12/13/2016 19:05 .S/
[2016-12-13] MEDS ORDERED: ACET325T33 PO (19:15)
--- NOTE | 2016-12-13 19:15 | ERD ---
ER Documentation Chief Complaint Date/Time DATE: 12/13/16 TIME: 19:13 Chief Complaint BROUGHT IN VIA PRIVATE AMBULANCE DUE TO FALL FROM BED HPI This 71-year-old female presents to the emergency room after being brought in by ambulance due to a fall that she had while at her nursing facility. This patient fell out of her bed because her rail was not of according to the patient. She did hit her head but did not lose consciousness. She has no complaints at this time. She says she does not have a headache or blurred vision and came to the ER for clearance. ROS All systems reviewed and are negative except as per history of present illness. Medications Home Meds Reported Medications Warfarin Sodium* (Coumadin*) 1 Mg Tablet, 1 MG PO DAILY, TAB Q 5 PM. 12/13/16 Latanoprost (Xalatan) 2.5 Ml Drops, 1 DROP BOTH EYES QHS, #1 BOTTLE 12/13/16 Gabapentin* (Neurontin*) 300 Mg Capsule, 300 MG PO BID, #60 CAP 12/13/16 Benzonatate* (Tessalon Perle*) 100 Mg Capsule, 200 MG PO TID Y for COUGH, CAP 12/13/16 Sod Phosphate/Sod Biphosphate* (Fleet* Enema Pediatric) 66.6 Ml Soln, 66.6 ML ID Q2D Y for CONSTIPATION, ENEMA 12/13/16 Bisacodyl* (Bisacodyl*) 10 Mg Supp, 10 MG ID Q24H Y for PRN, SUPP 12/13/16 Magnesium Hydroxide* (Milk Of Magnesia*) 400 Mg/5 Ml Oral.susp, 30 ML PO QHS, ML 12/13/16 Hydromorphone Hcl* (Dilaudid* Inj) 1 Mg/Ml Soln, 0.5 MG IV Q4H Y for PAIN, AMP 12/13/16 Hydrocodone/Acetaminophen ([place] 5-325 Tablet) 1 Each Tablet, 1 EACH PO Q4H, TAB 12/13/16 Ondansetron Hcl* (Zofran*) 4 Mg Tab, 4 MG PO Q6H Y for NAUSEA AND OR VOMITING, TAB 12/13/16 Guaifenesin-Codeine Phosphate* (Robitussin* AC) 5 Ml Syrup, 5 ML PO Q4H Y for COUGH, ML 12/13/16 Cranberry Extract (Cranberry) 425 Mg Capsule, 425 MG PO DAILY, CAP 12/13/16 Lansoprazole* (Lansoprazole*) 30 Mg Capsule.dr, 30 MG PO AC BREAKFAST, CAP 11/04/16 Furosemide* (Furosemide*) 40 Mg Tablet, 40 MG PO DAILY, TAB HOLD IF SBP<110,HR<60 11/04/16 Diltiazem Hcl* (Cardizem CD*) 120 Mg Cap.sr.24h, 120 MG PO DAILY, CAP HOLD IF SBP<110,HR<60 11/04/16 Zolpidem Tartrate* (Ambien*) 5 Mg Tablet, 5 MG PO QHS Y for SLEEP, TAB 11/04/16 Polyethylene Glycol* (Miralax*) 17 Gm Powd.pack, 17 GM PO DAILY Y for CONSTIPATION, PACKET 11/04/16 Docusate Sodium* (Colace*) 100 Mg Capsule, 200 MG PO QHS Y for CONSTIPATION, CAP 11/04/16 Atorvastatin (Atorvastatin) 10 Mg Tablet, 10 MG PO QHS, #30 TAB 11/04/16 Alprazolam (Alprazolam) 0.25 Mg Tab.rapdis, 0.25 MG PO Q6 Y for ANXIETY, TAB 11/04/16 Acetaminophen (Acetaminophen) 325 Mg Capsule, 650 MG PO Q4 for PAIN LEVEL 1-3 OR FEVER, CAP 100 AND ABOVE 11/04/16 Discontinued Reported Medications Travoprost* (Travatan*) 0.004%-2.5 Ml Opht, 1 DROP BOTH EYES QHS, #1 BOTTLE 11/04/16 Gabapentin* (Gabapentin*) 300 Mg Capsule, 300 MG PO TID, CAP 11/04/16 Digoxin* (Lanoxin*) 0.125 Mg Tablet, 125 MCG PO DAILY, TAB 11/04/16 Allergies Allergies: Coded Allergies: Influenza Virus Vaccines (Verified Allergy, Unknown, 12/13/16) lactose (Verified Allergy, Unknown, 12/13/16) Lactose Intolerant PMhx/Soc History of Surgery: Yes (APPENDECTOMY;GLAUCOMA;TUMOR REMOVAL;HIP SURGERY;) Anesthesia Reaction: No Hx Neurological Disorder: Yes (CVA;) Hx Respiratory Disorders: No Hx Cardiac Disorders: Yes (CAD;HTN; A-FIB;) Hx Psychiatric Problems: No Hx Miscellaneous Medical Probl: Yes (A-fib, HTN, glaucoma, liposarcoma, acute CVA. ) Hx Alcohol Use: No Hx Substance Use: No Hx Tobacco Use: No Physical Exam Vitals Vital Signs Date Time Temp Pulse Resp B/P Pulse Ox O2 Delivery O2 Flow Rate FiO2 12/13/16 18:19 98.1 66 18 132/64 93 Physical Exam Const: No acute distress Head: Atraumatic Eyes: Normal Conjunctiva ENT: Normal External Ears, Nose and Mouth. Neck: Full range of motion..~ No meningismus. Resp: Clear to auscultation bilaterally Cardio: Regular rate and rhythm, no murmurs Abd: Soft, non tender, non distended. Normal bowel sounds Skin: No petechiae or rashes Back: No midline or flank tenderness Ext: No cyanosis, or edema Neur: Awake and alert Psych: Normal Mood and Affect Procedures/MDM CT head without: 1. No significant interval change compared to 11/22/2016. No acute intracranial abnormality. No intracranial hemorrhage, extra-axial fluid collection, mass lesion or hydrocephalous. 2. Stable mild to moderate peripheral and central cerebral volume loss. 3. Stable moderate patchy and confluent periventricular and subcortical white matter hypodensity, likely related to chronic microangiopathic changes. 4. Stable encephalomalacia in the posterior right frontal lobe suggestive of remote prior infarct. 5. Stable remote left cerebellar hemisphere lacunar infarct. This 71-year-old female presents to the ER for evaluation of a closed head injury after a fall she had in her [facility]. This patient has had no new focal neurological deficits since being in the emergency room, she is alert oriented to person place and time. CT of the head does not reveal any acute pathology. This patient will be discharged back to the [facility] at this time. Departure Diagnosis: Primary Impression: Closed head injury Additional Impression: Fall with no significant injury Condition: Stable JON COOPER DO Dec 13, 2016 19:15
[2016-12-13 20:41] VITALS: BP 104/68; PULSE 104; RESP 20; TEMP 98.2
== END 2016-12-13 20:41 | disposition home or self-care (01) ==
LOC: E/R 17:18
DX: S09.90XA Unspecified injury of head, initial encounter (principal); I10 Essential (primary) hypertension; I25.10 Atherosclerotic heart disease of native coronary artery without angina pectoris; G93.89 Other specified disorders of brain; W06.XXXA Fall from bed, initial encounter; Y92.9 Unspecified place or not applicable; Z85.9 Personal history of malignant neoplasm, unspecified
CPT/HCPCS: 70450